=== PATIENT | female | born 1975 | race African-American/Black ===

== ENCOUNTER → 2020-04-25 16:15 | Outpatient (BNVA) | payer MEDICAID, SELFPAY | PROVIDERS: PCP Internal Medicine; Referring Provider Internal Medicine; Visit Provider Anesthesiology | DX: Z76.89 Persons encountering health services in other specified circumstances (principal) ==

== ENCOUNTER → 2020-04-26 13:52 | Outpatient (BNVA) | payer MEDICAID, SELFPAY | PROVIDERS: PCP Internal Medicine; Visit Provider Family Medicine Adult Medicine | DX: M47.812 Spondylosis without myelopathy or radiculopathy, cervical region (principal); M47.814 Spondylosis without myelopathy or radiculopathy, thoracic region; M54.16 Radiculopathy, lumbar region | CPT/HCPCS: 99204 ==

== ENCOUNTER → 2020-05-29 14:38 | Outpatient (BNVA) | payer MEDICAID, SELFPAY | PROVIDERS: PCP Internal Medicine; Referring Provider Internal Medicine; Visit Provider Family Medicine Adult Medicine | DX: M47.814 Spondylosis without myelopathy or radiculopathy, thoracic region (principal); M47.812 Spondylosis without myelopathy or radiculopathy, cervical region; Z79.891 Long term (current) use of opiate analgesic | CPT/HCPCS: 99212 ==

== ENCOUNTER → 2020-07-16 09:26 | Outpatient (BNVA) | payer MEDICAID, SELFPAY | PROVIDERS: PCP Internal Medicine; Visit Provider Nurse Practitioner | DX: Z76.89 Persons encountering health services in other specified circumstances (principal) ==

== ENCOUNTER → 2020-07-24 14:24 | Outpatient (BNVA) | payer MEDICAID, SELFPAY | PROVIDERS: PCP Internal Medicine; Visit Provider Family Medicine Adult Medicine | DX: M47.816 Spondylosis without myelopathy or radiculopathy, lumbar region (principal); M47.814 Spondylosis without myelopathy or radiculopathy, thoracic region | CPT/HCPCS: 99212 ==

== ENCOUNTER 2020-07-25 10:08 | Outpatient (REF) | payer MEDICAID, SELFPAY ==
--- NOTE | 2020-07-25 10:15 | EMG_ITS ---
HISTORY OF PRESENT ILLNESS: This is a 44-year-old woman with bilateral hand pain and numbness, left worse than right. She has no medical problems and takes no medications. PHYSICAL EXAMINATION: On examination, she has mild flattening of the thenar eminence on the right. No Tinel or Phalen sign. IMPRESSION: Rule out carpal tunnel syndrome. Nerve conduction EMG study: Moderate carpal tunnel syndrome on the right, mild to moderate carpal tunnel syndrome on the left. Normal EMG of the left C5-T1 innervated muscles. MD MINESH Bright/CRISTINA / [id number]
== END 2020-07-25 10:09 | disposition home or self-care (01) ==
LOC: HO.NEURO 10:08
PROVIDERS: Visit Provider Internal Medicine
DX: R20.2 Paresthesia of skin (principal)
CPT/HCPCS: 95886; 95913

== ENCOUNTER → 2020-09-18 14:12 | Outpatient (BNVA) | payer MEDICAID, SELFPAY | PROVIDERS: PCP Internal Medicine; Visit Provider Family Medicine Adult Medicine | DX: M47.814 Spondylosis without myelopathy or radiculopathy, thoracic region (principal); M47.816 Spondylosis without myelopathy or radiculopathy, lumbar region; Z79.899 Other long term (current) drug therapy | CPT/HCPCS: 99212 ==

== ENCOUNTER → 2020-10-09 13:22 | Outpatient (BNVA) | payer MEDICAID, SELFPAY | PROVIDERS: PCP Internal Medicine; Visit Provider Nurse Practitioner ==

== ENCOUNTER 2020-11-11 18:22 | Emergency (ER) | payer MEDICAID, SELFPAY ==
--- NOTE | ~2020-11-11 | XR_ITS ---
EXAMINATION: XR CHEST CLINICAL INFORMATION: Chest pain COMPARISON: 04/16/2016 TECHNIQUE: 2 views of the chest were obtained. FINDINGS: Lungs are clear. No focal consolidation or mass. Normal pulmonary vascularity. No pleural effusion or pneumothorax. Normal heart size. No acute osseous abnormality. XR/XR chest 2V IMPRESSION: No acute pulmonary disease.
[2020-11-11 18:32] VITALS: BP 159/89; PULSE 74; RESP 16; TEMP 37.7; O2SAT 95; BMI 38.4
[2020-11-11 19:53] LABS: MANUAL DIFF FLAG NO
[2020-11-11 19:58] LABS: Basophils Percent Auto 0.1 % (0-2); Eosinophils Percent Auto 0.1 % (0-4); Hematocrit 44.9 % (37-47); Hemoglobin 15.3 g/dl (12.0-16.0); Imm Gran Abs Auto 0.25 X10*3/uL (0.00-0.03); Imm Gran Pct Auto 1.4 % (0.0-0.4); Lymphocytes Percent Auto 11.3 % (20-40); Mean Corpuscular HGB Conc 34.1 g/dl (31.0-35.0); Mean Corpuscular Hemoglobin 30.6 pg (27.0-33.0); Mean Corpuscular Volume 89.8 fL (80-98); Mean Platelet Volume 9.5 fL (9.4-12.3); Monocytes Absolute Auto 0.6 X10*3/uL (0.1-1.2); Monocytes Percent Auto 3.7 % (2-11); Neutrophils Absolute Auto 14.5 X10*3/uL (2.0-8.3); Neutrophils Percent Auto 83.4 % (45-73); Platelet Count 213 X10*3/uL (160-400); Red Cell Distribution Width 15.3 % (11.0-16.0); White Blood Count 17.4 X10*3/uL (4.8-10.8)
[2020-11-11 20:06] LABS: Glucose Urine UA NEG (NEG); Leukocyte Esterase Urine NEG (NEG); Nitrite Urine NEG (NEG); PH 7.5 (5.0-8.0); Specific Gravity - Urine 1.015 (1.005-1.025); Urine Blood NEG (NEG); Urine Ketones NEG (NEG); Urine Protein NEG (NEG-TRACE)
[2020-11-11 20:09] LABS: Appearance Urine CLEAR; Color Urine YELLOW; UPreg QC Valid YES; Urine Pregnancy NEGATIVE (NEGATIVE)
[2020-11-11 20:27] LABS: Alanine Aminotransferase 56 U/L (0-31); Albumin Level 3.9 g/dL (3.5-5.0); Alkaline Phosphatase 73 U/L (39-117); Anion Gap 15 (12-20); Aspartate Amino Transferase 16 U/L (5-31); Bilirubin Total 0.7 mg/dL (0.0-1.0); Blood Urea Nitrogen 21 mg/dL (9-16); Calcium 9.6 mg/dL (8.4-10.2); Carbon Dioxide 31 mmol/L (22-29); Chloride 98 mmol/L (96-108); Creatinine Clr Calc Pharmacy 96.9; Estimated Glomerular Filt Rate > 60; Glucose Random 185 mg/dL (60-115); Potassium 3.7 mmol/L (3.3-5.1); Sodium 140 mmol/L (135-145); Total Protein 6.5 g/dL (6.5-8.0)
[2020-11-11 20:28] LABS: Troponin-I High Sensitivity 5.6 ng/L (<3.5-17.0)
--- NOTE | 2020-11-11 21:34 | ECG_ITS ---
Test Reason : CHEST PAIN Blood Pressure : / mmHG Vent. Rate : 068 BPM Atrial Rate : 068 BPM P-R Int : 130 ms QRS Dur : 082 ms QT Int : 382 ms P-R-T Axes : 018 -06 008 degrees QTc Int : 406 ms Normal sinus rhythm Normal ECG When compared with ECG of 25-FEB-2018 10:15, Inverted T waves have replaced nonspecific T wave abnormality in Inferior leads Referred By: Katt Barriga Electronically Signed By:LYN FELTON MD
--- NOTE | 2020-11-11 21:52 | ED.CHESTPAIN ---
HPI - Chest Pain General Chief Complaint: Chest Pain Stated Complaint: Chest pain Time Seen by Provider: 11/11/20 21:33 Source: patient Mode of arrival: ambulatory History of Present Illness HPI narrative: 44-year-old female who presents with onset of chest tightness, nonradiating, but associated with dizziness and change in vision that occurred at approximately 6:00 p.m. this evening while doing housework and lasted 15-20 minutes and was not associated with shortness of breath, diaphoresis, or nausea. Patient denies any recent fevers, chills, new cough, or sore throat. In addition, patient denies any recent travel, calf swelling/pain. Related Data Home Medications Medication Instructions Recorded Confirmed atenolol 25 mg tablet 25 mg PO DAILY 04/21/20 05/29/20 lamotrigine 200 mg tablet 200 mg PO DAILY 04/21/20 04/21/20 venlafaxine 150 mg 150 mg PO DAILY 04/21/20 05/29/20 capsule,extended release 24 hr verapamil 120 mg tablet 120 mg PO DAILY 04/21/20 05/29/20 zolpidem 10 mg tablet 10 mg PO BEDTIME PRN 04/21/20 04/21/20 Previous Rx's Medication Instructions Recorded docusate sodium 100 mg capsule 100 mg PO BID #60 cap 07/16/20 hydrocortisone 2.5 % topical cream 1 appl SD BID PRN 30 Days #30 g 10/09/20 with perineal applicator linaclotide 145 mcg capsule 145 mcg PO QAM 30 Days #30 cap 10/09/20 dexamethasone 4 mg tablet 4 mg PO BID 30 Days #60 tab 10/16/20 buprenorphine HCl 600 mcg buccal 600 mcg BUCCAL Q12H 30 Days #60 ea 11/01/20 film pantoprazole 20 mg tablet,delayed 20 mg PO DAILY #30 tab 11/02/20 release ibuprofen 800 mg tablet 800 mg PO Q12H 30 Days #60 tab 11/07/20 Allergies Allergy/AdvReac Type Severity Reaction Status Date / Time ENVIRONMENTAL Allergy Intermediate HAYFEVER Uncoded 09/18/20 14:46 SYMPTOMS Review of Systems Review of Systems: Pertinent positives and negatives as stated in HPI 10 point review systems is otherwise negative. [facility] Past Medical History Source: nursing notes reviewed Medical History Cervical spondylosis Cervicalgia Degenerative arthritis of thoracic spine Left elbow pain Left elbow pain Low back pain Lumbar spondylosis Thoracic spondylosis Surgical History History of esophagogastroduodenoscopy (EGD) Family History Family History Brother Leukemia Mother HTN (hypertension) Father Myocardial infarct Social History Social History Alcohol intake: never Smoking Status: Never smoker Advance Directives: No Advance Directives Information Provided: No Physical Exam Vital Signs: Vital Signs: Last Vital Signs Temp 99.1 F 11/11/20 23:45 Pulse 58 11/11/20 23:45 Resp 24 H 11/11/20 23:45 BP 118/72 11/11/20 23:45 Pulse Ox 96 11/11/20 23:45 Body Mass Index 38.4 VITAL SIGNS: Reviewed. GENERAL: Well developed, well nourished, in no acute distress. HEAD: Normocephalic/atraumatic, EYES: PERRLA, EOMI EARS: Ext canals without abnormality, TMs non-bulging and non-erythematous NOSE: Nares patent bilateral OROPHARYNX: no oral lesions noted, posterior pharynx clear and non-erythematous without noted tonsillar enlargement/erythema/exudates NECK: Supple, no adenopathy LUNGS: Normal breath sounds, no tachypnea, no wheeze. SpO2<95> CARDIOVASCULAR: Regular rate and rhythm without noted murmurs, no JVD or lower extremity edema. ABDOMEN: Soft, non-tender, non-distended with bowel sounds. NEUROLOGIC: Alert and oriented x 4. Strength and sensation to light touch were grossly intact x 4, no facial asymmetry, no pronator drift, cranial nerves 2-12 grossly intact Course Course Course Narrative: 44-year-old female with history and clinical presentation suggestive of asthma symptoms, pneumonia, less likely cardiac ischemia, and low clinical suspicion for PE. Review of all investigations that acute findings as the leukocytosis is noted is felt to be secondary to patient's prescription for Decadron as chest x-ray/UA/benign abdominal exam are inconsistent with infectious etiology. In addition, the low-level D-dimer value noted is consistent with prior value obtained in 2019 and further supports low likelihood of PE. Serial troponins flat and EKG without acute changes on comparison with prior from 2018. Patient informed of all results and discharged in stable condition. MDM - Chest Pain Lab Data Result diagrams: 11/11/20 19:46 11/11/20 19:46 Labs: Lab Results 11/11/20 11/11/20 11/11/20 Range/Units 19:46 19:46 19:46 WBC 17.4 H (4.8-10.8) X10*3/uL RBC 5.00 (4.20-5.50) X10*6/uL Hgb 15.3 (12.0-16.0) g/dl Hct 44.9 (37-47) % MCV 89.8 (80-98) fL MCH 30.6 (27.0-33.0) pg MCHC 34.1 (31.0-35.0) g/dl RDW 15.3 (11.0-16.0) % Plt Count 213 (160-400) X10*3/uL MPV 9.5 (9.4-12.3) fL Immature Gran % (Auto) 1.4 H (0.0-0.4) % Neut % (Auto) 83.4 H (45-73) % Lymph % (Auto) 11.3 L (20-40) % [place] % (Auto) 3.7 (2-11) % Eos % (Auto) 0.1 (0-4) % Baso % (Auto) 0.1 (0-2) % Lymph # (Auto) 2.0 (1.2-4.9) X10*3/uL [place] # (Auto) 0.6 (0.1-1.2) X10*3/uL Eos # (Auto) 0.0 (0.0-0.4) X10*3/uL Baso # (Auto) 0.0 (0.0-0.2) X10*3/uL Abs Immat Gran (auto) 0.25 H (0.00-0.03) X10*3/uL Absolute Neuts (auto) 14.5 H (2.0-8.3) X10*3/uL Absolute Nucleated RBC 0.000 (0.0-0.012) X10*3/uL Nucleated RBC % (auto) 0.0 (0.0-0.2) /100WBC D-Dimer 233 NG/ML Hold Blue Top SEE NOTE Sodium 140 (135-145) mmol/L Potassium 3.7 (3.3-5.1) mmol/L Chloride 98 (96-108) mmol/L Carbon Dioxide 31 H (22-29) mmol/L Anion Gap 15 (12-20) BUN 21 H (9-16) mg/dL Creatinine 0.78 (0.5-1.4) mg/dL Estim Creat Clear Calc 96.9 Estimated GFR > 60 Random Glucose 185 H (60-115) mg/dL Calcium 9.6 (8.4-10.2) mg/dL Total Bilirubin 0.7 (0.0-1.0) mg/dL AST 16 (5-31) U/L ALT 56 H (0-31) U/L Alkaline Phosphatase 73 (39-117) U/L Troponin I High Sens (<3.5-17.0) ng/L Total Protein 6.5 (6.5-8.0) g/dL Albumin 3.9 (3.5-5.0) g/dL Lipase 61 (8-78) U/L Urine Color Urine Appearance Urine pH (5.0-8.0) Ur Specific [place] (1.005-1.025) Urine Protein (NEG-TRACE) MG/DL Urine Glucose (UA) (NEG) MG/DL Urine Ketones (NEG) MG/DL Urine Blood (NEG) Urine Nitrite (NEG) Ur Leukocyte Esterase (NEG) Urine Test (NEGATIVE) 11/11/20 11/11/20 11/11/20 Range/Units 19:46 19:54 19:54 WBC (4.8-10.8) X10*3/uL RBC (4.20-5.50) X10*6/uL Hgb (12.0-16.0) g/dl Hct (37-47) % MCV (80-98) fL MCH (27.0-33.0) pg MCHC (31.0-35.0) g/dl RDW (11.0-16.0) % Plt Count (160-400) X10*3/uL MPV (9.4-12.3) fL Immature Gran % (Auto) (0.0-0.4) % Neut % (Auto) (45-73) % Lymph % (Auto) (20-40) % [place] % (Auto) (2-11) % Eos % (Auto) (0-4) % Baso % (Auto) (0-2) % Lymph # (Auto) (1.2-4.9) X10*3/uL [place] # (Auto) (0.1-1.2) X10*3/uL Eos # (Auto) (0.0-0.4) X10*3/uL Baso # (Auto) (0.0-0.2) X10*3/uL Abs Immat Gran (auto) (0.00-0.03) X10*3/uL Absolute Neuts (auto) (2.0-8.3) X10*3/uL Absolute Nucleated RBC (0.0-0.012) X10*3/uL Nucleated RBC % (auto) (0.0-0.2) /100WBC D-Dimer NG/ML Hold Blue Top Sodium (135-145) mmol/L Potassium (3.3-5.1) mmol/L Chloride (96-108) mmol/L Carbon Dioxide (22-29) mmol/L Anion Gap (12-20) BUN (9-16) mg/dL Creatinine (0.5-1.4) mg/dL Estim Creat Clear Calc Estimated GFR Random Glucose (60-115) mg/dL Calcium (8.4-10.2) mg/dL Total Bilirubin (0.0-1.0) mg/dL AST (5-31) U/L ALT (0-31) U/L Alkaline Phosphatase (39-117) U/L Troponin I High Sens 5.6 (<3.5-17.0) ng/L Total Protein (6.5-8.0) g/dL Albumin (3.5-5.0) g/dL Lipase (8-78) U/L Urine Color YELLOW Urine Appearance CLEAR Urine pH 7.5 (5.0-8.0) Ur Specific [place] 1.015 (1.005-1.025) Urine Protein NEG (NEG-TRACE) MG/DL Urine Glucose (UA) NEG (NEG) MG/DL Urine Ketones NEG (NEG) MG/DL Urine Blood NEG (NEG) Urine Nitrite NEG (NEG) Ur Leukocyte Esterase NEG (NEG) Urine Test NEGATIVE (NEGATIVE) 11/11/20 Range/Units 23:15 WBC (4.8-10.8) X10*3/uL RBC (4.20-5.50) X10*6/uL Hgb (12.0-16.0) g/dl Hct (37-47) % MCV (80-98) fL MCH (27.0-33.0) pg MCHC (31.0-35.0) g/dl RDW (11.0-16.0) % Plt Count (160-400) X10*3/uL MPV (9.4-12.3) fL Immature Gran % (Auto) (0.0-0.4) % Neut % (Auto) (45-73) % Lymph % (Auto) (20-40) % [place] % (Auto) (2-11) % Eos % (Auto) (0-4) % Baso % (Auto) (0-2) % Lymph # (Auto) (1.2-4.9) X10*3/uL [place] # (Auto) (0.1-1.2) X10*3/uL Eos # (Auto) (0.0-0.4) X10*3/uL Baso # (Auto) (0.0-0.2) X10*3/uL Abs Immat Gran (auto) (0.00-0.03) X10*3/uL Absolute Neuts (auto) (2.0-8.3) X10*3/uL Absolute Nucleated RBC (0.0-0.012) X10*3/uL Nucleated RBC % (auto) (0.0-0.2) /100WBC D-Dimer NG/ML Hold Blue Top Sodium (135-145) mmol/L Potassium (3.3-5.1) mmol/L Chloride (96-108) mmol/L Carbon Dioxide (22-29) mmol/L Anion Gap (12-20) BUN (9-16) mg/dL Creatinine (0.5-1.4) mg/dL Estim Creat Clear Calc Estimated GFR Random Glucose (60-115) mg/dL Calcium (8.4-10.2) mg/dL Total Bilirubin (0.0-1.0) mg/dL AST (5-31) U/L ALT (0-31) U/L Alkaline Phosphatase (39-117) U/L Troponin I High Sens 3.9 (<3.5-17.0) ng/L Total Protein (6.5-8.0) g/dL Albumin (3.5-5.0) g/dL Lipase (8-78) U/L Urine Color Urine Appearance Urine pH (5.0-8.0) Ur Specific [place] (1.005-1.025) Urine Protein (NEG-TRACE) MG/DL Urine Glucose (UA) (NEG) MG/DL Urine Ketones (NEG) MG/DL Urine Blood (NEG) Urine Nitrite (NEG) Ur Leukocyte Esterase (NEG) Urine Test (NEGATIVE) ECG Data ECG #1: Attestation: I personally reviewed and interpreted this ECG as follows: Prior ECG tracings: available for review (02/25/2018 no acute changes on comparison) Interpretation: Normal sinus rhythm, HR-68, no evidence of acute ischemia, SD/QRS/QTC within normal limits. Discharge Plan Discharge Clinical Impression: Atypical chest pain, GERD (gastroesophageal reflux disease) Patient Disposition: Home, Self-Care Instructions: Diet for Stomach Ulcers and Gastritis (ED), Gastroesophageal Reflux Disease (ED) Additional Instructions: Follow-up with your primary care provider in the next 2-3 days for re-evaluation. Do not hesitate to return to the emergency department should you develop any acute worsening of symptoms. Prescriptions: No Action dexamethasone 4 mg tablet 4 mg PO BID 30 Days Qty: 60 RF: 0 Belbuca 600 mcg film 600 mcg buccal Q12H 30 Days Qty: 60 RF: 0 pantoprazole 20 mg tablet,delayed release (DR/EC) 20 mg PO DAILY Qty: 30 RF: 0 ibuprofen 800 mg tablet 800 mg PO Q12H 30 Days Qty: 60 RF: 1 atenolol 25 mg tablet 25 mg PO DAILY RF: 0 lamotrigine 200 mg tablet 200 mg PO DAILY RF: 0 verapamil 120 mg tablet 120 mg PO DAILY RF: 0 venlafaxine 150 mg capsule,extended release 24hr 150 mg PO DAILY RF: 0 zolpidem 10 mg tablet 10 mg PO BEDTIME PRNRF: 0 Linzess 145 mcg capsule 145 mcg PO QAM 30 Days Qty: 30 RF: 4 hydrocortisone [Proctosol HC] 2.5 % cream with perineal applicator 1 appl SD BID PRN (Reason: hemorrhoids) 30 Days Qty: 30 RF: 6 docusate sodium [Colace] 100 mg capsule 100 mg PO BID Qty: 60 RF: 3 Referrals: Woodrow Montalvo MD [Primary Care Provider] - 2 days (Re-evaluation after seen in the ER for atypical chest pain. Possible GERD exacerbation secondary to being placed on Decadron 4 mg daily.)
[2020-11-11 22:19] LABS: Lipase 61 U/L (8-78)
[2020-11-11 22:43] LABS: D Dimer 233 NG/ML
[2020-11-11 23:45] VITALS: BP 118/72; PULSE 58; RESP 24; TEMP 37.3; O2SAT 96
[2020-11-11 23:55] LABS: Troponin-I High Sensitivity 3.9 ng/L (<3.5-17.0)
[2020-11-12 00:06] VITALS: BP 114/71; PULSE 58; RESP 22; O2SAT 97
== END 2020-11-12 00:16 | disposition home or self-care (01) ==
PROVIDERS: Emergency Provider Student in an Organized Health Care Education/Training Program; PCP Internal Medicine
DX: R07.89 Other chest pain (principal); K21.9 Gastro-esophageal reflux disease without esophagitis
CPT/HCPCS: 36415; 71046; 80053; 81003; 81025; 83690; 84484; 85025; 85379; 93005; 99283; 99284

== ENCOUNTER → 2020-11-13 14:07 | Outpatient (REF) | payer MEDICAID, SELFPAY | LOC: HO.SL 14:07 | PROVIDERS: PCP Internal Medicine; Visit Provider Internal Medicine | DX: G47.30 Sleep apnea, unspecified (principal); K64.9 Unspecified hemorrhoids; K21.9 Gastro-esophageal reflux disease without esophagitis; K59.00 Constipation, unspecified; R14.0 Abdominal distension (gaseous); Z79.899 Other long term (current) drug therapy | CPT/HCPCS: 95806 ==

== ENCOUNTER 2020-11-23 15:46 | Emergency (ER) | payer MEDICAID, SELFPAY ==
--- NOTE | ~2020-11-23 | CT_ITS ---
EXAMINATION: CT SOFT TISSUE NECK WITH CONTRAST CLINICAL INFORMATION: Painful swallowing and swelling. COMPARISON: None TECHNIQUE: Following the intravenous administration of 60 mL of Omnipaque 350 intravenous contrast, helical imaging was performed in the axial plane with generation of coronal and sagittal reformatted images. This CT examination was performed using dose optimization techniques as appropriate, variously including the following: *Automated exposure control *Adjustment of mA and/or kV according to patient size (this includes techniques or standardized protocols for targeted exams where dose is matched to indication/reason for exam; i.e. extremities or head) *Use of iterative reconstruction technique DLP: 813 mGy-cm FINDINGS: There are numerous shotty lymph nodes seen throughout bilateral neck likely reactive. The parotid glands are homogeneous in attenuation. The submandibular glands are normal. No contour abnormality or pathologic enhancement is seen within the oral cavity or pharyngeal mucosal space. There is mild thickening of the adenoids and the soft palate resulting in narrowing of the nasopharyngeal airway likely secondary inflammatory process. There is no abscess seen. The patellar pharyngeal soft tissues are normal. The laryngeal structures are normal. The parapharyngeal fat is preserved. The carotid sheath vasculature opacify normally. No extra mucosal soft tissue mass or fluid collection is seen. No retropharyngeal fluid collection is seen. The thyroid gland is normal. The superior mediastinum is unremarkable. There is a small 2 mm nodule right upper lobe., Barely visible. Otherwise lung apices are clear.. Mild mucoperiosteal thickening bilateral maxillary sinuses. Rest of the paranasal sinuses are clear and well aerated. The mastoid air cells are well-aerated. The temporomandibular joints are normal. No periapical disease is identified. No osseous abnormalities are seen. The imaged portions of the brain parenchyma are unremarkable. CT/CT soft tissue neck w con IMPRESSION: No acute process seen. Nonspecific mild narrowing of nasopharyngeal airway secondary mild thickening of the adenoids and soft palate. No abscess seen. Small nonspecific 2 mm nodule right upper lobe. Benign reactive bilateral neck lymph nodes.
[2020-11-23 15:50] VITALS: BP 117/79; PULSE 100; RESP 12; TEMP 36.2; O2SAT 96; BMI 38.4
[2020-11-23 16:31] LABS: MANUAL DIFF FLAG NO
[2020-11-23 16:33] LABS: Basophils Percent Auto 0.2 % (0-2); Eosinophils Absolute Auto 0.1 X10*3/uL (0.0-0.4); Eosinophils Percent Auto 0.6 % (0-4); Hematocrit 40.7 % (37-47); Hemoglobin 13.9 g/dl (12.0-16.0); Lymphocytes Absolute Auto 2.3 X10*3/uL (1.2-4.9); Mean Corpuscular HGB Conc 34.2 g/dl (31.0-35.0); Mean Corpuscular Hemoglobin 30.6 pg (27.0-33.0); Mean Corpuscular Volume 89.6 fL (80-98); Mean Platelet Volume 9.2 fL (9.4-12.3); Monocytes Absolute Auto 0.7 X10*3/uL (0.1-1.2); Monocytes Percent Auto 6.8 % (2-11); Neutrophils Absolute Auto 6.9 X10*3/uL (2.0-8.3); Neutrophils Percent Auto 68.4 % (45-73); Platelet Count 196 X10*3/uL (160-400); Red Blood Count 4.54 X10*6/uL (4.20-5.50); Red Cell Distribution Width 14.6 % (11.0-16.0); White Blood Count 10.1 X10*3/uL (4.8-10.8)
[2020-11-23] MEDS: diphenhydrAMINE HCL 50 MG/ML VIAL 25 MG IVPUSH (16:34)
[2020-11-23] MEDS: Famotidine/PF 20 MG/2 ML VIAL IVPUSH (16:34)
[2020-11-23] MEDS: methylPREDNISolone Sod Succ 125 MG/2 ML VIAL IVPUSH (16:34)
--- NOTE | 2020-11-23 16:35 | ED.GENADULT ---
HPI - General Adult General Chief complaint: Allergic Reaction Stated complaint: facial swelling Time Seen by Provider: 11/23/20 16:12 Source: patient Mode of arrival: ambulatory Limitations: no limitations History of Present Illness HPI narrative: 44 y/o female with history of chronic low back pain with radiculopathy, GERD, constipation who presents to the ED with 1 week of face, neck, and throat swelling for the past 1 week. She states the swelling feels worse on the right side of her face and throat. She is having pain with eating but able to eat and drink all consistencies. Her voice is normal and she is handling secretions normally. About 6 weeks ago she was started on Decadron 4 mg daily by her Pain Specialist for chronic pain. She is also on buprenorphine (Belbuca) 600 mg Q12 and Motrin 800 mg TID. She is not on an SHERWIN inhibitor or aspirin. She denies lip swelling, rash, fever, chills, N/V. MD complaint: facial and neck swelling Onset (ago): day(s) (7) Location: face, mouth and neck Radiation: distal Severity: moderate Quality: aching Pain Consistency: intermittent Relieving factors: none Exacerbating factors: eating Associated symptoms: denies other symptoms Treatments prior to arrival: none Related Data Home Medications Medication Instructions Recorded Confirmed atenolol 25 mg tablet 25 mg PO DAILY 04/21/20 11/13/20 lamotrigine 200 mg tablet 200 mg PO DAILY 04/21/20 11/13/20 venlafaxine 150 mg 150 mg PO DAILY 04/21/20 05/29/20 capsule,extended release 24 hr verapamil 120 mg tablet 120 mg PO DAILY 04/21/20 11/13/20 zolpidem 10 mg tablet 10 mg PO BEDTIME PRN 04/21/20 11/13/20 bisacodyl 5 mg tablet,delayed 10 mg PO BEDTIME 11/13/20 11/13/20 release paroxetine HCl 30 mg tablet 30 mg PO DAILY 11/13/20 11/13/20 quetiapine 50 mg tablet 50 mg PO DAILY 11/13/20 11/13/20 Previous Rx's Medication Instructions Recorded hydrocortisone 2.5 % topical cream 1 appl MS BID PRN 30 Days #30 g 10/09/20 with perineal applicator linaclotide 145 mcg capsule 145 mcg PO QAM 30 Days #30 cap 10/09/20 dexamethasone 4 mg tablet 4 mg PO BID 30 Days #60 tab 10/16/20 pantoprazole 20 mg tablet,delayed 20 mg PO DAILY #30 tab 11/02/20 release ibuprofen 800 mg tablet 800 mg PO Q12H 30 Days #60 tab 11/07/20 docusate sodium 100 mg capsule 100 mg PO BID #60 cap 11/13/20 simethicone 180 mg capsule 180 mg PO TIDWMEAL 30 Days #90 cap 11/13/20 buprenorphine HCl 600 mcg buccal 600 mcg BUCCAL Q12H 30 Days #60 ea 11/15/20 film amoxicillin-pot clavulanate 1 tab PO BID #14 tab 11/23/20 [Augmentin] Allergies Allergy/AdvReac Type Severity Reaction Status Date / Time ENVIRONMENTAL Allergy Intermediate HAYFEVER Uncoded 09/18/20 14:46 SYMPTOMS Review of Systems Review of Systems: Constitutional: No Fever, No Chills ENT/Mouth: + sore throat, No Rhinorrhea, + Swallowing Difficulty Eyes: No Eye Pain, No Swelling, No Redness Cardiovascular: No Chest Pain, No SOB, No Orthopnea, No Edema Respiratory: No Cough, No Sputum, No Wheezing, No dyspnea Gastrointestinal: No Nausea, No Vomiting, No Diarrhea, No abdominal Pain Genitourinary: No Dysuria, No Urinary Frequency, No Hematuria Musculoskeletal: No joint pain, No Myalgias Skin: No Skin Lesions, No rash Neuro: No Weakness, No Numbness, No Dizziness, No Headache Psych: No Anxiety/Panic, No Depression Heme/Lymph: No Bruising, No Lymphadenopathy PMFSH Past Medical History Attestation statement: The following information was validated with the patient. Medical History Cervical spondylosis Cervicalgia Degenerative arthritis of thoracic spine Left elbow pain Left elbow pain Low back pain Lumbar spondylosis Thoracic spondylosis Surgical History History of esophagogastroduodenoscopy (EGD) Family History Family History Brother Leukemia Mother HTN (hypertension) Father Myocardial infarct Social History Social History (Updated 11/13/20 @ 14:37 by MORENA Zimmerman) Household Members Other:: FOUR GROWN SONS LIVES ALONE Alcohol intake: never Smoking Status: Never smoker Advance Directives: No Advance Directives Information Provided: No Patient : No Physical Exam Vital Signs: Vital Signs: Last Vital Signs Temp 98.8 F 11/23/20 18:15 Pulse 86 11/23/20 18:15 Resp 18 11/23/20 18:15 BP 108/61 11/23/20 18:15 Pulse Ox 92 11/23/20 18:15 Body Mass Index 38.4 Appearance: Alert. Oriented X3. No acute distress. Eyes: Pupils equal, round and reactive to light. ENT: Pharynx normal. No appreciated tongue swelling. lips are normal. uvula midline. normal voice. Neck: Bilateral submandibular swelling with lateral swelling, trachea midline, tiny shotty LAD in the neck. Swelling is soft, extends to supraclavicular area CVS: Normal heart rate and rhythm. Pulses normal. Respiratory: No respiratory distress. Breath sounds normal. Abdomen: Soft and nontender. +BS x4 Skin: Skin warm and dry. Normal skin color. Normal skin turgor. No rashes. Extremities: No lower extremity edema. Neuro: Oriented X 3. No motor deficit. No sensory deficit. Course Course Course Narrative: 44 y/o female presenting with facial, neck and mouth swelling x1 week. Does not appear to be angioedema. She reports painful swallowing. She appearing Cushingoid however she has only been on steroids for 6 weeks. Will get labs and CT scan of her neck to assess the anatomy. Reevaluation(s) Reevaluation #1: No leukocytosis. CT scan showing No acute process seen. Nonspecific mild narrowing of nasopharyngeal airway secondary mild thickening of the adenoids and soft palate. No abscess seen. Small nonspecific 2 mm nodule right upper lobe. Benign reactive bilateral neck lymph nodes. Etiology of her swelling is unclear but it does not involve her airway. She is in no respiratory distress and breathing comfortably. Tolerating PO. Will start PO Augmentin for possible adenitis. She is encouraged to f/u with her PCP next week or come back to the ER if symptoms worsen. She is stable for discharge. Patient agrees with plan. Medical Decision Making Lab Data Result diagrams: 11/23/20 16:27 11/23/20 16:27 Labs: Lab Results 05/07/21 05/07/21 Range/Units 16:27 16:27 WBC 10.1 (4.8-10.8) X10*3/uL RBC 4.54 (4.20-5.50) X10*6/uL Hgb 13.9 (12.0-16.0) g/dl Hct 40.7 (37-47) % MCV 89.6 (80-98) fL MCH 30.6 (27.0-33.0) pg MCHC 34.2 (31.0-35.0) g/dl RDW 14.6 (11.0-16.0) % Plt Count 196 (160-400) X10*3/uL MPV 9.2 L (9.4-12.3) fL Immature Gran % (Auto) 1.0 H (0.0-0.4) % Neut % (Auto) 68.4 (45-73) % Lymph % (Auto) 23.0 (20-40) % [place] % (Auto) 6.8 (2-11) % Eos % (Auto) 0.6 (0-4) % Baso % (Auto) 0.2 (0-2) % Lymph # (Auto) 2.3 (1.2-4.9) X10*3/uL [place] # (Auto) 0.7 (0.1-1.2) X10*3/uL Eos # (Auto) 0.1 (0.0-0.4) X10*3/uL Baso # (Auto) 0.0 (0.0-0.2) X10*3/uL Abs Immat Gran (auto) 0.10 H (0.00-0.03) X10*3/uL Absolute Neuts (auto) 6.9 (2.0-8.3) X10*3/uL Absolute Nucleated RBC 0.000 (0.0-0.012) X10*3/uL Nucleated RBC % (auto) 0.0 (0.0-0.2) /100WBC Sodium 139 (135-145) mmol/L Potassium 2.9 L D (3.3-5.1) mmol/L Chloride 99 (96-108) mmol/L Carbon Dioxide 28 (22-29) mmol/L Anion Gap 15 (12-20) BUN 9 D (9-16) mg/dL Creatinine 0.71 (0.5-1.4) mg/dL Estim Creat Clear Calc 106.5 Estimated GFR > 60 Random Glucose 169 H (60-115) mg/dL Calcium 8.9 D (8.4-10.2) mg/dL Magnesium 1.9 (1.6-2.6) mg/dL Discharge Plan Discharge Clinical Impression: Lymphadenopathy of head and neck region Patient Disposition: Home, Self-Care Instructions: Lymphadenopathy (ED) Additional Instructions: Your blood workup today was unremarkable. Your CT scan showed small swollen lymph nodes in your neck. The cause could be viral, reactive or possibly a bacterial infection. Take the prescribed antibiotic as directed for 1 week. Follow up with your doctor next week. If you have any worsening symptoms come back to the ER for further evaluation. Prescriptions: New amoxicillin-pot clavulanate [Augmentin] 875-125 mg tablet 1 tab PO BID Qty: 14 RF: 0 No Action dexamethasone 4 mg tablet 4 mg PO BID 30 Days Qty: 60 RF: 0 pantoprazole 20 mg tablet,delayed release (DR/EC) 20 mg PO DAILY Qty: 30 RF: 0 ibuprofen 800 mg tablet 800 mg PO Q12H 30 Days Qty: 60 RF: 1 atenolol 25 mg tablet 25 mg PO DAILY RF: 0 lamotrigine 200 mg tablet 200 mg PO DAILY RF: 0 verapamil 120 mg tablet 120 mg PO DAILY RF: 0 venlafaxine 150 mg capsule,extended release 24hr 150 mg PO DAILY RF: 0 zolpidem 10 mg tablet 10 mg PO BEDTIME PRNRF: 0 Linzess 145 mcg capsule 145 mcg PO QAM 30 Days Qty: 30 RF: 4 hydrocortisone [Proctosol HC] 2.5 % cream with perineal applicator 1 appl MS BID PRN (Reason: hemorrhoids) 30 Days Qty: 30 RF: 6 quetiapine [Seroquel] 50 mg tablet 50 mg PO DAILY RF: 0 paroxetine HCl 30 mg tablet 30 mg PO DAILY RF: 0 simethicone 180 mg capsule 180 mg PO TIDWMEAL 30 Days Qty: 90 RF: 3 bisacodyl [Dulcolax (bisacodyl)] 5 mg tablet,delayed release (DR/EC) 10 mg PO BEDTIME RF: 0 docusate sodium [Colace] 100 mg capsule 100 mg PO BID Qty: 60 RF: 3 Belbuca 600 mcg film 600 mcg buccal Q12H 30 Days Qty: 60 RF: 0 Referrals: Woodrow Montalvo MD [Primary Care Provider] - 2 days
[2020-11-23 17:15] LABS: Anion Gap 15 (12-20); Blood Urea Nitrogen 9 mg/dL (9-16); Calcium 8.9 mg/dL (8.4-10.2); Carbon Dioxide 28 mmol/L (22-29); Chloride 99 mmol/L (96-108); Creatinine Clr Calc Pharmacy 106.5; Estimated Glomerular Filt Rate > 60; Glucose Random 169 mg/dL (60-115); Magnesium 1.9 mg/dL (1.6-2.6); Potassium 2.9 mmol/L (3.3-5.1); Sodium 139 mmol/L (135-145)
[2020-11-23] MEDS: Potassium Chloride ER 20 MEQ TAB.ER.PRT 40 MEQ PO (17:44)
[2020-11-23] MEDS: iohexoL 350 MG/ML 100 ML INFUS..BTL IV (18:02)
[2020-11-23 18:15] VITALS: BP 108/61; PULSE 86; RESP 18; TEMP 37.1; O2SAT 92
--- NOTE | 2020-11-23 18:44 | PC.NURSE ---
Report taken from preeti Roland RN resuming care. Provider at bedside explaining results and plan of care.
[2020-11-23 19:49] VITALS: BP 118/65; PULSE 88; RESP 16; O2SAT 93
== END 2020-11-23 20:00 | disposition home or self-care (01) ==
PROVIDERS: Physician Assistant; Emergency Provider Emergency Medicine; PCP Internal Medicine
DX: R59.1 Generalized enlarged lymph nodes (principal)
CPT/HCPCS: 36415; 70491; 80048; 83735; 85025; 96374; 96375; 99284; J1200; J2930; Q9967

== ENCOUNTER 2020-12-29 17:44 | Emergency (ER) | payer MEDICAID, SELFPAY ==
--- NOTE | ~2020-12-29 | US_ITS ---
EXAMINATION: US ABDOMEN LIMITED CLINICAL INFORMATION: Upper abdominal pain. COMPARISON: CT 09/15/2019 TECHNIQUE: Real-time imaging of the right upper quadrant abdominal viscera. FINDINGS: PANCREAS: The visualized proximal portion of the pancreas is unremarkable. The distal portion is obscured secondary to overlying bowel gas. LIVER: The liver is normal in size. The liver contour is normal. There is diffusely increased liver parenchymal echogenicity, consistent with hepatic steatosis. No focal hepatic lesion. There is no intrahepatic biliary duct dilatation seen. GALLBLADDER: The gallbladder is physiologically distended without evidence of stones, sludge, polyps, wall thickening or pericholecystic fluid. COMMON BILE DUCT: Normal in caliber measuring 0.4 cm in diameter. RIGHT KIDNEY: No hydronephrosis. No renal calculi identified. There is a 1.7 cm mid renal cyst. The kidney measures 12.9 cm in maximum dimension. FREE FLUID: None. US/US abdomen limited IMPRESSION: No acute findings identified. Hepatic steatosis.
[2020-12-29 19:09] VITALS: BP 118/86; PULSE 90; RESP 16; TEMP 36.8; O2SAT 100; BMI 36.3
--- NOTE | 2020-12-29 21:43 | ECG_ITS ---
Test Reason : ABDOMINAL PAIN Blood Pressure : / mmHG Vent. Rate : 083 BPM Atrial Rate : 083 BPM P-R Int : 146 ms QRS Dur : 086 ms QT Int : 370 ms P-R-T Axes : 018 -09 007 degrees QTc Int : 434 ms Normal sinus rhythm Normal ECG When compared with ECG of 11-NOV-2020 18:37, No significant change was found Referred By: Isabella Conklin Electronically Signed By:LYN FELTON MD
--- NOTE | 2020-12-29 21:46 | ED.ABDPAIN ---
HPI - Abdominal Pain General Chief Complaint: Abdominal Pain Stated Complaint: abdominal pain Time Seen by Provider: 12/29/20 21:38 History of Present Illness HPI narrative: Patient is a 45-year-old female presents today with having epigastric pain. The pain is dull in nature. It has been ongoing. Has a history of gastritis in the past. Patient denies any change with food. No coughing or congestion or upper respiratory symptoms. No chest pain. Positive mild shortness of breath. No diaphoresis. Patient from home. Positive diarrhea. Positive nausea. Status post hysterectomy. Patient currently not on any medication. History of GERD. Pain not change with position. Related Data Home Medications Medication Instructions Recorded Confirmed atenolol 25 mg tablet 25 mg PO DAILY 04/21/20 11/13/20 lamotrigine 200 mg tablet 200 mg PO DAILY 04/21/20 11/13/20 venlafaxine 150 mg 150 mg PO DAILY 04/21/20 05/29/20 capsule,extended release 24 hr verapamil 120 mg tablet 120 mg PO DAILY 04/21/20 11/13/20 zolpidem 10 mg tablet 10 mg PO BEDTIME PRN 04/21/20 11/13/20 bisacodyl 5 mg tablet,delayed 10 mg PO BEDTIME 11/13/20 11/13/20 release paroxetine HCl 30 mg tablet 30 mg PO DAILY 11/13/20 11/13/20 quetiapine 50 mg tablet 50 mg PO DAILY 11/13/20 11/13/20 Previous Rx's Medication Instructions Recorded hydrocortisone 2.5 % topical cream 1 appl [place] BID PRN 30 Days #30 g 10/09/20 with perineal applicator linaclotide 145 mcg capsule 145 mcg PO QAM 30 Days #30 cap 10/09/20 dexamethasone 4 mg tablet 4 mg PO BID 30 Days #60 tab 10/16/20 ibuprofen 800 mg tablet 800 mg PO Q12H 30 Days #60 tab 11/07/20 docusate sodium 100 mg capsule 100 mg PO BID #60 cap 11/13/20 simethicone 180 mg capsule 180 mg PO TIDWMEAL 30 Days #90 cap 11/13/20 buprenorphine HCl 600 mcg buccal 600 mcg BUCCAL Q12H 30 Days #60 ea 11/15/20 film amoxicillin-pot clavulanate 1 tab PO BID #14 tab 11/23/20 [Augmentin] pantoprazole 20 mg tablet,delayed 20 mg PO DAILY #30 tab 12/04/20 release pantoprazole [Protonix] 40 mg PO DAILY 14 Days #14 tab 12/30/20 Allergies Allergy/AdvReac Type Severity Reaction Status Date / Time ENVIRONMENTAL Allergy Intermediate HAYFEVER Uncoded 09/18/20 14:46 SYMPTOMS Review of Systems Review of Systems Constitutional: No Weight loss, No Fever, No Chills, No Night Sweats, No Fatigue, No Malaise ENT/Mouth: No Hearing loss, No Ear Pain, No Nasal Congestion, No Sinus Pain, No Hoarseness, No sore throat, No Rhinorrhea, No Swallowing Difficulty Eyes: No Eye Pain, No Swelling, No Redness, No Foreign Body, No Discharge, No Vision Changes Cardiovascular: No Chest Pain, No SOB, No Dyspnea on Exertion, No Orthopnea, No Edema, No Palpitations Respiratory: No Cough, No Sputum, No Wheezing, No Smoke Exposure, No Dyspnea Gastrointestinal: No Nausea, No Vomiting, No Diarrhea, No Constipation, positive abdominal Pain, No Hematochezia, No Melena Genitourinary: no irregular bleeding, No Dysuria, No Urinary Frequency, No Hematuria, No Urinary Incontinence, No Urgency, No Flank Pain, No Urinary Flow Changes, No Hesitancy Musculoskeletal: No joint pain, No Myalgias, No Joint Swelling Skin: No Skin Lesions, No rash Neuro: No Weakness, No Numbness, No Paresthesias, No Loss of Consciousness, No Dizziness, No Headache Psych: No Anxiety/Panic, No Depression, No SI/HI/AH/VH, No Social Issues, Heme/Lymph: No Bruising, No Bleeding,No Lymphadenopathy Endocrine: No Polyuria, No Polydipsia, No Temperature Intolerance Physical Exam Vital Signs: Vital Signs: Last Vital Signs Temp 98.3 F 12/29/20 19:09 Pulse 93 12/30/20 04:53 Resp 16 12/30/20 04:53 BP 119/88 12/30/20 04:53 Pulse Ox 98 12/30/20 04:53 Body Mass Index 36.3 Appearance: Alert. Oriented X3. No acute distress. Eyes: Pupils equal, round and reactive to light. ENT: Pharynx normal. Neck: Normal inspection. Neck supple. No lymph nodes noted. No crepitus CVS: Normal heart rate and rhythm. Pulses normal. Normal S1 and S2 Respiratory: No respiratory distress. Breath sounds normal. No Wheezing. No rales Abdomen: Soft and nontender. No rigidity. No distention. good BS x4 Skin: Skin warm and dry. Normal skin color. Normal skin turgor. Extremities: No lower extremity edema. Neurovascular intact to all extremities. No Lacerations. No Rash Neuro: Oriented X 3. No motor deficit. No sensory deficit. Moving all extermities. No slurred speech MDM - Abdominal Pain MDM Narrative Medical decision making narrative: Patient's complaining of epigastric pain. White count was 12. Liver enzymes were normal. Ultrasound of the abdomen did not show any evidence of cholecystitis. Patient's sugar came back at 400. Given a dose of insulin. Monitor in the emergency department. Sugar came down to 170s. Patient will be started on PPI. Incidentally patient ran out of her PPI. Close follow-up on an outpatient basis. In stable condition. Lab Data Result diagrams: 12/29/20 22:29 12/29/20 22:29 Labs: Lab Results 12/29/20 12/29/20 12/30/20 Range/Units 22:29 22:29 04:52 WBC 11.9 H (4.8-10.8) X10*3/uL RBC 5.22 (4.20-5.50) X10*6/uL Hgb 16.1 H (12.0-16.0) g/dl Hct 45.0 (37-47) % MCV 86.2 (80-98) fL MCH 30.8 (27.0-33.0) pg MCHC 35.8 H (31.0-35.0) g/dl RDW 12.7 (11.0-16.0) % Plt Count 341 D (160-400) X10*3/uL MPV 10.0 (9.4-12.3) fL Immature Gran % (Auto) 0.3 (0.0-0.4) % Neut % (Auto) 68.0 (45-73) % Lymph % (Auto) 25.3 (20-40) % [place] % (Auto) 5.4 (2-11) % Eos % (Auto) 0.6 (0-4) % Baso % (Auto) 0.4 (0-2) % Lymph # (Auto) 3.0 (1.2-4.9) X10*3/uL [place] # (Auto) 0.6 (0.1-1.2) X10*3/uL Eos # (Auto) 0.1 (0.0-0.4) X10*3/uL Baso # (Auto) 0.1 (0.0-0.2) X10*3/uL Abs Immat Gran (auto) 0.04 H (0.00-0.03) X10*3/uL Absolute Neuts (auto) 8.1 (2.0-8.3) X10*3/uL Absolute Nucleated RBC 0.000 (0.0-0.012) X10*3/uL Nucleated RBC % (auto) 0.0 (0.0-0.2) /100WBC Sodium 134 L (135-145) mmol/L Potassium 3.0 L (3.3-5.1) mmol/L Chloride 89 L (96-108) mmol/L Carbon Dioxide 31 H (22-29) mmol/L Anion Gap 17 (12-20) BUN 8 L (9-16) mg/dL Creatinine 0.95 (0.5-1.4) mg/dL Estim Creat Clear Calc 76.3 Estimated GFR > 60 POC Glucose 178 H (60-115) mg/dL Random Glucose 410 H* (60-115) mg/dL Calcium 10.2 D (8.4-10.2) mg/dL Total Bilirubin 1.1 H (0.0-1.0) mg/dL AST 21 (5-31) U/L ALT 32 H (0-31) U/L Alkaline Phosphatase 102 D (39-117) U/L Total Protein 7.7 (6.5-8.0) g/dL Albumin 4.2 (3.5-5.0) g/dL Lipase 24 (8-78) U/L Discharge Plan Discharge Clinical Impression: Gastritis Patient Disposition: Home, Self-Care Instructions: Gastritis (ED) Prescriptions: New pantoprazole [Protonix] 40 mg tablet,delayed release (DR/EC) 40 mg PO DAILY 14 Days Qty: 14 RF: 0 No Action dexamethasone 4 mg tablet 4 mg PO BID 30 Days Qty: 60 RF: 0 ibuprofen 800 mg tablet 800 mg PO Q12H 30 Days Qty: 60 RF: 1 pantoprazole 20 mg tablet,delayed release (DR/EC) 20 mg PO DAILY Qty: 30 RF: 6 amoxicillin-pot clavulanate [Augmentin] 875-125 mg tablet 1 tab PO BID Qty: 14 RF: 0 atenolol 25 mg tablet 25 mg PO DAILY RF: 0 lamotrigine 200 mg tablet 200 mg PO DAILY RF: 0 verapamil 120 mg tablet 120 mg PO DAILY RF: 0 venlafaxine 150 mg capsule,extended release 24hr 150 mg PO DAILY RF: 0 zolpidem 10 mg tablet 10 mg PO BEDTIME PRNRF: 0 Linzess 145 mcg capsule 145 mcg PO QAM 30 Days Qty: 30 RF: 4 hydrocortisone [Proctosol HC] 2.5 % cream with perineal applicator 1 appl [place] BID PRN (Reason: hemorrhoids) 30 Days Qty: 30 RF: 6 quetiapine [Seroquel] 50 mg tablet 50 mg PO DAILY RF: 0 paroxetine HCl 30 mg tablet 30 mg PO DAILY RF: 0 simethicone 180 mg capsule 180 mg PO TIDWMEAL 30 Days Qty: 90 RF: 3 bisacodyl [Dulcolax (bisacodyl)] 5 mg tablet,delayed release (DR/EC) 10 mg PO BEDTIME RF: 0 docusate sodium [Colace] 100 mg capsule 100 mg PO BID Qty: 60 RF: 3 [place] 600 mcg film 600 mcg buccal Q12H 30 Days Qty: 60 RF: 0 Referrals: Woodrow Montalvo MD [Primary Care Provider] - 2 days (Small meal, no spicy food. Closely follow up with her doctor on an outpatient basis.) [facility] Past Medical History Medical History Cervical spondylosis Cervicalgia Degenerative arthritis of thoracic spine Left elbow pain Left elbow pain Low back pain Lumbar spondylosis Thoracic spondylosis Surgical History History of esophagogastroduodenoscopy (EGD) Family History Family History Brother Leukemia Mother HTN (hypertension) Father Myocardial infarct Social History Social History Household Members Other:: FOUR GROWN SONS LIVES ALONE Alcohol intake: never Smoked in Last 30 Days: No Use of substances other than those prescribed or required for medical reasons: No Advance Directives: No Advance Directives Information Provided: No Patient : No
[2020-12-29] MEDS: Magnesium Hydrox/Alum Hydrox 30 ML ORAL.SUSP PO (22:18)
[2020-12-29] MEDS: Lidocaine HCl Viscous 2 % 15 ML SOLUTION MUCOUS MEM (22:18)
[2020-12-29] MEDS: PHENobarb/Hyoscy/Atropine/Scop 10 ML ELIXIR PO (22:18)
[2020-12-29 22:35] LABS: Basophils Absolute Auto 0.1 X10*3/uL (0.0-0.2); Basophils Percent Auto 0.4 % (0-2); Eosinophils Absolute Auto 0.1 X10*3/uL (0.0-0.4); Eosinophils Percent Auto 0.6 % (0-4); Hemoglobin 16.1 g/dl (12.0-16.0); Imm Gran Abs Auto 0.04 X10*3/uL (0.00-0.03); Imm Gran Pct Auto 0.3 % (0.0-0.4); Lymphocytes Percent Auto 25.3 % (20-40); MANUAL DIFF FLAG NO; Mean Corpuscular HGB Conc 35.8 g/dl (31.0-35.0); Mean Corpuscular Hemoglobin 30.8 pg (27.0-33.0); Mean Corpuscular Volume 86.2 fL (80-98); Monocytes Absolute Auto 0.6 X10*3/uL (0.1-1.2); Monocytes Percent Auto 5.4 % (2-11); Neutrophils Absolute Auto 8.1 X10*3/uL (2.0-8.3); Platelet Count 341 X10*3/uL (160-400); Red Blood Count 5.22 X10*6/uL (4.20-5.50); Red Cell Distribution Width 12.7 % (11.0-16.0); White Blood Count 11.9 X10*3/uL (4.8-10.8)
[2020-12-29] MEDS: ondansetron HCL 4 MG/2 ML VIAL IVPUSH (22:36)
[2020-12-29] MEDS: 0.9 % Sodium Chloride 1,000 ML 999 ML IV (22:36)
[2020-12-29 22:58] LABS: Lipase 24 U/L (8-78)
[2020-12-30 00:21] LABS: Alanine Aminotransferase 32 U/L (0-31); Albumin Level 4.2 g/dL (3.5-5.0); Alkaline Phosphatase 102 U/L (39-117); Anion Gap 17 (12-20); Aspartate Amino Transferase 21 U/L (5-31); Bilirubin Total 1.1 mg/dL (0.0-1.0); Blood Urea Nitrogen 8 mg/dL (9-16); Calcium 10.2 mg/dL (8.4-10.2); Carbon Dioxide 31 mmol/L (22-29); Chloride 89 mmol/L (96-108); Creatinine Clr Calc Pharmacy 76.3; Estimated Glomerular Filt Rate > 60; Glucose Random 410 mg/dL (60-115); Sodium 134 mmol/L (135-145); Total Protein 7.7 g/dL (6.5-8.0)
[2020-12-30] MEDS: Insulin Regular, Human 100 UNIT/ML 3 ML VIAL 8 UNIT SUBCUT (01:18)
[2020-12-30 02:00] VITALS: BP 140/97; PULSE 90; RESP 16; O2SAT 97
[2020-12-30 04:53] VITALS: BP 119/88; PULSE 93; RESP 16; O2SAT 98
[2020-12-30 05:09] LABS: Glucose, Whole Blood 178 mg/dL (60-115)
[2020-12-30 05:25] LABS: Glucose Urine UA 500 MG/DL (NEG); Leukocyte Esterase Urine NEG (NEG); Nitrite Urine NEG (NEG); Specific Gravity - Urine 1.025 (1.005-1.025); Urine Blood NEG (NEG); Urine Ketones 5 MG/DL (NEG); Urine Protein NEG (NEG-TRACE)
[2020-12-30 05:28] LABS: Appearance Urine CLEAR; Color Urine YELLOW
== END 2020-12-30 05:26 | disposition home or self-care (01) ==
PROVIDERS: Emergency Provider Emergency Medicine Emergency Medical Services; PCP Internal Medicine
DX: K29.70 Gastritis, unspecified, without bleeding (principal); R06.02 Shortness of breath
CPT/HCPCS: 36415; 76705; 80053; 81003; 82947; 83690; 85025; 93005; 96361; 96374; 99284; 99285; J2405

== ENCOUNTER 2021-01-08 22:04 | Emergency (ER) | payer MEDICAID, SELFPAY ==
[2021-01-08 22:18] VITALS: BP 131/106; PULSE 102; RESP 18; TEMP 36.5; O2SAT 96; BMI 34.9
[2021-01-09 01:06] LABS: Glucose, Whole Blood 499 mg/dL (60-115)
[2021-01-09 01:07] LABS: MANUAL DIFF FLAG NO
[2021-01-09 01:08] LABS: Basophils Absolute Auto 0.1 X10*3/uL (0.0-0.2); Basophils Percent Auto 0.4 % (0-2); Eosinophils Absolute Auto 0.1 X10*3/uL (0.0-0.4); Eosinophils Percent Auto 0.6 % (0-4); Hematocrit 45.9 % (37-47); Hemoglobin 16.3 g/dl (12.0-16.0); Imm Gran Abs Auto 0.06 X10*3/uL (0.00-0.03); Imm Gran Pct Auto 0.5 % (0.0-0.4); Lymphocytes Absolute Auto 3.3 X10*3/uL (1.2-4.9); Lymphocytes Percent Auto 26.4 % (20-40); Mean Corpuscular HGB Conc 35.5 g/dl (31.0-35.0); Mean Corpuscular Hemoglobin 30.9 pg (27.0-33.0); Mean Corpuscular Volume 86.9 fL (80-98); Mean Platelet Volume 10.4 fL (9.4-12.3); Monocytes Absolute Auto 0.7 X10*3/uL (0.1-1.2); Monocytes Percent Auto 5.7 % (2-11); Neutrophils Absolute Auto 8.3 X10*3/uL (2.0-8.3); Neutrophils Percent Auto 66.4 % (45-73); Platelet Count 380 X10*3/uL (160-400); Red Blood Count 5.28 X10*6/uL (4.20-5.50); Red Cell Distribution Width 12.3 % (11.0-16.0); White Blood Count 12.5 X10*3/uL (4.8-10.8)
[2021-01-09 01:30] LABS: Acetone, serum QL Small (Negative)
[2021-01-09 01:40] LABS: Alanine Aminotransferase 21 U/L (0-31); Albumin Level 4.2 g/dL (3.5-5.0); Alkaline Phosphatase 109 U/L (39-117); Anion Gap 22 (12-20); Aspartate Amino Transferase 20 U/L (5-31); Blood Urea Nitrogen 6 mg/dL (9-16); Calcium 9.5 mg/dL (8.4-10.2); Carbon Dioxide 25 mmol/L (22-29); Chloride 88 mmol/L (96-108); Creatinine Clr Calc Pharmacy 62.3; Estimated Glomerular Filt Rate 51; Glucose Random 521 mg/dL (60-115); Potassium 3.1 mmol/L (3.3-5.1); Sodium 132 mmol/L (135-145); Total Protein 7.6 g/dL (6.5-8.0)
[2021-01-09 01:43] VITALS: BP 152/88; PULSE 94; RESP 16; O2SAT 98
[2021-01-09] MEDS: 0.9 % Sodium Chloride 1,000 ML 999 ML IV ×3 (01:50→01:54)
[2021-01-09] MEDS: Insulin Regular, Human 100 UNIT/ML 3 ML VIAL 10 UNIT IVPUSH (01:58)
[2021-01-09] MEDS: Potassium Chloride ER 20 MEQ TAB.ER.PRT 40 MEQ PO (02:08)
--- NOTE | 2021-01-09 02:42 | ED_ITS ---
HPI - General Adult General Chief complaint: Dizziness <RUPERTO Ragsdale - Last Filed: 01/09/21 02:56> Stated complaint: dizziness <RUPERTO Ragsdale - Last Filed: 01/09/21 02:56> Time Seen by Provider: 01/08/21 23:39 <RUPERTO Ragsdale Last Filed: 01/09/21 02:56> Source: patient <RUPERTO Ragsdale Last Filed: 01/09/21 02:56> Mode of arrival: ambulatory <RUPERTO Ragsdale Last Filed: 01/09/21 02:56> Limitations: no limitations <RUPERTO Ragsdale Last Filed: 01/09/21 02:56> History of Present Illness HPI narrative: Patient present to the ED for dizziness due to elevated glucose. Patient recently diagnosed diabetic but has not taken insulin because the pharmacy did not her chief of pediatric urology her to glucometer to check for her glucose. <RUPERTO Ragsdale Last Filed: 01/09/21 02:56> Related Data Home medications: Home Medications Medication Instructions Recorded Confirmed atenolol 25 mg tablet 25 mg PO DAILY 04/21/20 11/13/20 lamotrigine 200 mg tablet 200 mg PO DAILY 04/21/20 11/13/20 venlafaxine 150 mg 150 mg PO DAILY 04/21/20 05/29/20 capsule,extended release 24 hr verapamil 120 mg tablet 120 mg PO DAILY 04/21/20 11/13/20 zolpidem 10 mg tablet 10 mg PO BEDTIME PRN 04/21/20 11/13/20 bisacodyl 5 mg tablet,delayed 10 mg PO BEDTIME 11/13/20 11/13/20 release paroxetine HCl 30 mg tablet 30 mg PO DAILY 11/13/20 11/13/20 quetiapine 50 mg tablet 50 mg PO DAILY 11/13/20 11/13/20 Previous Rx's Medication Instructions Recorded hydrocortisone 2.5 % topical cream 1 appl [place] BID PRN 30 Days #30 g 10/09/20 with perineal applicator linaclotide 145 mcg capsule 145 mcg PO QAM 30 Days #30 cap 10/09/20 dexamethasone 4 mg tablet 4 mg PO BID 30 Days #60 tab 10/16/20 ibuprofen 800 mg tablet 800 mg PO Q12H 30 Days #60 tab 11/07/20 docusate sodium 100 mg capsule 100 mg PO BID #60 cap 11/13/20 simethicone 180 mg capsule 180 mg PO TIDWMEAL 30 Days #90 cap 11/13/20 buprenorphine HCl 600 mcg buccal 600 mcg BUCCAL Q12H 30 Days #60 ea 11/15/20 film amoxicillin-pot clavulanate 1 tab PO BID #14 tab 11/23/20 [Augmentin] pantoprazole 20 mg tablet,delayed 20 mg PO DAILY #30 tab 12/04/20 release pantoprazole [Protonix] 40 mg PO DAILY 14 Days #14 tab 12/30/20 <RUPERTO Ragsdale Last Filed: 01/09/21 02:56> Allergies/adverse reactions: Allergies Allergy/AdvReac Type Severity Reaction Status Date / Time ENVIRONMENTAL Allergy Intermediate HAYFEVER Uncoded 09/18/20 14:46 SYMPTOMS <RUPERTO Ragsdale Last Filed: 01/09/21 02:56> Review of Systems Review of Systems: Yes all other systems are reviewed and are negative <RUPERTO Ragsdale Last Filed: 01/09/21 02:56> Constitutional: Constitutional: Reports as per HPI and Reports no additional constitutional complaints <RUPERTO Ragsdale Last Filed: 01/09/21 02:56> Eyes: Eyes: Reports as per HPI and Reports no additional eye complaints <RUPERTO Ragsdale Last Filed: 01/09/21 02:56> ENT: Reports system reviewed and no additional complaints, except as documented and Reports as per HPI <RUPERTO Ragsdale Last Filed: 01/09/21 02:56> Cardiovascular: Cardiovascular: Reports as per HPI and Reports no additional cardiovascular complaints <RUPERTO Ragsdale Last Filed: 01/09/21 02:56> Respiratory: Respiratory: Reports as per HPI and Reports no additional respiratory complaints <RUPERTO Ragsdale Last Filed: 01/09/21 02:56> Gastrointestinal: Gastrointestinal: Reports as per HPI and Reports no additional gastrointestinal complaints <RUPERTO Ragsdale Last Filed: 01/09/21 02:56> Genitourinary: Genitourinary: Reports no additional female genitourinary complaints and Reports as per HPI <RUPERTO Ragsdale Last Filed: 01/09/21 02:56> Musculoskeletal: Musculoskeletal: Reports no additional musculoskeletal complaints and Reports as per HPI <RUPERTO Ragsdale - Last Filed: 01/09/21 02:56> Neurologic: Reports system reviewed and no additional complaints, except as documented and Reports as per HPI <RUPERTO Ragsdale - Last Filed: 01/09/21 02:56> Psychiatric: Psychiatric: Reports no additional psychiatric complaints and Reports as per HPI <RUPERTO Ragsdale - Last Filed: 01/09/21 02:56> [facility] Past Medical History Medical History: Medical History Cervical spondylosis Cervicalgia Degenerative arthritis of thoracic spine Left elbow pain Left elbow pain Low back pain Lumbar spondylosis Thoracic spondylosis <RUPERTO Ragsdale - Last Filed: 01/09/21 02:56> Surgical History: Surgical History History of esophagogastroduodenoscopy (EGD) <RUPERTO Ragsdale - Last Filed: 01/09/21 02:56> Family History Family History: Family History Brother Leukemia Mother HTN (hypertension) Father Myocardial infarct <RUPERTO Ragsdale - Last Filed: 01/09/21 02:56> Social History Social History: Social History Household Members Other:: FOUR GROWN SONS LIVES ALONE Alcohol intake: never Advance Directives: No Advance Directives Information Provided: No Patient : No <RUPERTO Ragsdale - Last Filed: 01/09/21 02:56> Physical Exam Vital Signs: Vital Signs: Last Vital Signs Temp 97.7 F 01/08/21 22:18 Pulse 101 H 01/09/21 05:04 Resp 14 01/09/21 05:04 BP 120/64 01/09/21 05:04 Pulse Ox 98 01/09/21 05:04 Body Mass Index 34.9 <RUPERTO Ragsdale - Last Filed: 01/09/21 02:56> Vital Signs: Last Vital Signs Temp 97.7 F 01/08/21 22:18 Pulse 101 H 01/09/21 05:04 Resp 14 01/09/21 05:04 BP 120/64 01/09/21 05:04 Pulse Ox 98 01/09/21 05:04 Body Mass Index 34.9 <Katt Barriga MD - Last Filed: 01/09/21 06:56> Const: General: cooperative, healthy appearing, comfortable, no acute distress, well developed, alert, awake and Physically active <RUPERTO Ragsdale Last Filed: 01/09/21 02:56> Orientation/consciousness: patient oriented x3 <RUPERTO Ragsdale Last Filed: 01/09/21 02:56> HENMT: Head: Yes normal to inspection, Yes No palpable skull fracture present, Yes normocephalic and Yes atraumatic <RUPERTO Ragsdale Last Filed: 01/09/21 02:56> Eyes: General: appearance normal, both eyes and all related structures <RUPERTO Ragsdale Last Filed: 01/09/21 02:56> Neck: Neck: Yes normal visual inspection, Yes full ROM, Yes no lymphadenopathy, Yes no meningeal signs, Yes trachea midline, Yes supple and No tender <RUPERTO Ragsdale Last Filed: 01/09/21 02:56> Chest: Chest palpation & inspection: normal inspection of the chest and normal palpation of entire chest wall <RUPERTO Ragsdale Last Filed: 01/09/21 02:56> Resp: Effort & Inspection: normal respiratory effort and able to speak in complete sentences <RUPERTO Ragsdale Last Filed: 01/09/21 02:56> Auscultation: clear to auscultation bilaterally <RUPERTO Ragsdale Last Filed: 01/09/21 02:56> Cardio: Jugular venous distension: no JVD <RUPERTO Ragsdale Last Filed: 01/09/21 02:56> Heart sounds: S1 normal heart sound present and S2 normal heart sound present <RUPERTO Ragsdale Last Filed: 01/09/21 02:56> GI: Inspection: Yes normal to inspection and No abdominal wall ecchymosis <RUPERTO Ragsdale Last Filed: 01/09/21 02:56> Palpation (GI): Soft to palpation, not firm, nontender, no guarding and not rigid <RUPERTO Ragsdale - Last Filed: 01/09/21 02:56> : General: No CVA tenderness and Yes no CVA tenderness <RUPERTO Ragsdale Last Filed: 01/09/21 02:56> Back/Spine/Pelvis: Back: no CVA tenderness, No CVA tenderness and No back tenderness <RUPERTO Ragsdale - Last Filed: 01/09/21 02:56> Skin: General skin exam: no rashes or lesions noted and elasticity normal <RUPERTO Ragsdale Last Filed: 01/09/21 02:56> Neuro: General: patient oriented x3, gait normal, moves all extremities, Normal light touch and pain sensation, no meningeal signs, no focal motor deficits and CN's II-XI intact bilaterally <RUPERTO Ragsdale Last Filed: 01/09/21 02:56> Cranial nerves: Yes CN's II-XII intact bilaterally <RUPERTO Ragsdale Last Filed: 01/09/21 02:56> Extrem: General: Yes normal to inspection and Yes full ROM <RUPERTO Ragsdale Last Filed: 01/09/21 02:56> Psych: Appearance: grossly normal, well kempt and not disheveled <RUPERTO Ragsdale Last Filed: 01/09/21 02:56> Course Course Course Narrative: Patient will be evaluated with labs to see if in DKA. <RUPERTO Ragsdale Last Filed: 01/09/21 02:56> Patient re-evaluated and labs reviewed. On review of lab work gap is closed and there is appropriate glucose control. After 2 runs of potassium chloride potassium remained somewhat low at 2.8. Patient received 60 mEq of potassium chloride as well as an additional 10 mEq via IV. She is otherwise hemodynamically stable and will be discharged home with instructions follow-up with primary care provider in the next 1-2 days for re-evaluation. <Katt Barriga MD - Last Filed: 01/09/21 06:56> Reevaluation(s) Reevaluation #1: Patient is in mild DKA. case signed out to Dr. Barriga to follow CMP and glucose. Nurse Lubna placed email for shop welder to see patient. Patient is not not toxic appearing. negative for any neuro deficits. <RUPERTO Ragsdale - Last Filed: 01/09/21 02:56> Time: 02:54 <RUPERTO Ragsdale - Last Filed: 01/09/21 02:56> Medical Decision Making MDM Narrative Medical decision making narrative: hyperglycemia <RUPERTO Ragsdale - Last Filed: 01/09/21 02:56> Lab Data Result diagrams: : 01/09/21 01:02 01/09/21 04:30 <RUPERTO Ragsdale - Last Filed: 01/09/21 02:56> Labs: Lab Results 01/09/21 01/09/21 01/09/21 Range/Units 00:56 01:02 01:02 WBC 12.5 H (4.8-10.8) X10*3/uL RBC 5.28 (4.20-5.50) X10*6/uL Hgb 16.3 H (12.0-16.0) g/dl Hct 45.9 (37-47) % MCV 86.9 (80-98) fL MCH 30.9 (27.0-33.0) pg MCHC 35.5 H (31.0-35.0) g/dl RDW 12.3 (11.0-16.0) % Plt Count 380 (160-400) X10*3/uL MPV 10.4 (9.4-12.3) fL Immature Gran % (Auto) 0.5 H (0.0-0.4) % Neut % (Auto) 66.4 (45-73) % Lymph % (Auto) 26.4 (20-40) % [place] % (Auto) 5.7 (2-11) % Eos % (Auto) 0.6 (0-4) % Baso % (Auto) 0.4 (0-2) % Lymph # (Auto) 3.3 (1.2-4.9) X10*3/uL [place] # (Auto) 0.7 (0.1-1.2) X10*3/uL Eos # (Auto) 0.1 (0.0-0.4) X10*3/uL Baso # (Auto) 0.1 (0.0-0.2) X10*3/uL Abs Immat Gran (auto) 0.06 H (0.00-0.03) X10*3/uL Absolute Neuts (auto) 8.3 (2.0-8.3) X10*3/uL Absolute Nucleated RBC 0.000 (0.0-0.012) X10*3/uL Nucleated RBC % (auto) 0.0 (0.0-0.2) /100WBC Sodium 132 L (135-145) mmol/L Potassium 3.1 L (3.3-5.1) mmol/L Chloride 88 L (96-108) mmol/L Carbon Dioxide 25 (22-29) mmol/L Anion Gap 22 H (12-20) BUN 6 L (9-16) mg/dL Creatinine 1.14 (0.5-1.4) mg/dL Estim Creat Clear Calc 62.3 Estimated GFR 51 POC Glucose 499 H* (60-115) mg/dL Random Glucose 521 H* (60-115) mg/dL Calcium 9.5 D (8.4-10.2) mg/dL Total Bilirubin 1.0 (0.0-1.0) mg/dL AST 20 (5-31) U/L ALT 21 (0-31) U/L Alkaline Phosphatase 109 (39-117) U/L Total Protein 7.6 (6.5-8.0) g/dL Albumin 4.2 (3.5-5.0) g/dL Urine Color Urine Appearance Urine pH (5.0-8.0) Ur Specific [place] (1.005-1.025) Urine Protein (NEG-TRACE) MG/DL Urine Glucose (UA) (NEG) MG/DL Urine Ketones (NEG) MG/DL Urine Blood (NEG) Urine Nitrite (NEG) Ur Leukocyte Esterase (NEG) Urine RBC (0) /HPF Urine WBC (0-4) /HPF Ur Squamous Epith Cells /LPF Urine Bacteria /LPF Urine Yeast /HPF Acetone, Qual (Negative) 01/09/21 01/09/21 01/09/21 Range/Units 01:02 04:01 04:23 WBC (4.8-10.8) X10*3/uL RBC (4.20-5.50) X10*6/uL Hgb (12.0-16.0) g/dl Hct (37-47) % MCV (80-98) fL MCH (27.0-33.0) pg MCHC (31.0-35.0) g/dl RDW (11.0-16.0) % Plt Count (160-400) X10*3/uL MPV (9.4-12.3) fL Immature Gran % (Auto) (0.0-0.4) % Neut % (Auto) (45-73) % Lymph % (Auto) (20-40) % [place] % (Auto) (2-11) % Eos % (Auto) (0-4) % Baso % (Auto) (0-2) % Lymph # (Auto) (1.2-4.9) X10*3/uL [place] # (Auto) (0.1-1.2) X10*3/uL Eos # (Auto) (0.0-0.4) X10*3/uL Baso # (Auto) (0.0-0.2) X10*3/uL Abs Immat Gran (auto) (0.00-0.03) X10*3/uL Absolute Neuts (auto) (2.0-8.3) X10*3/uL Absolute Nucleated RBC (0.0-0.012) X10*3/uL Nucleated RBC % (auto) (0.0-0.2) /100WBC Sodium (135-145) mmol/L Potassium (3.3-5.1) mmol/L Chloride (96-108) mmol/L Carbon Dioxide (22-29) mmol/L Anion Gap (12-20) BUN (9-16) mg/dL Creatinine (0.5-1.4) mg/dL Estim Creat Clear Calc Estimated GFR POC Glucose 300 H (60-115) mg/dL Random Glucose (60-115) mg/dL Calcium (8.4-10.2) mg/dL Total Bilirubin (0.0-1.0) mg/dL AST (5-31) U/L ALT (0-31) U/L Alkaline Phosphatase (39-117) U/L Total Protein (6.5-8.0) g/dL Albumin (3.5-5.0) g/dL Urine Color STRAW Urine Appearance CLEAR Urine pH 6.0 (5.0-8.0) Ur Specific [place] 1.010 (1.005-1.025) Urine Protein NEG (NEG-TRACE) MG/DL Urine Glucose (UA) >=1000 H (NEG) MG/DL Urine Ketones >=80 (NEG) MG/DL Urine Blood NEG (NEG) Urine Nitrite NEG (NEG) Ur Leukocyte Esterase NEG (NEG) Urine RBC 0 (0) /HPF Urine WBC 0-2 (0-4) /HPF Ur Squamous Epith Cells 1+ /LPF Urine Bacteria NONE /LPF Urine Yeast TRACE /HPF Acetone, Qual Small H (Negative) 01/09/21 01/09/21 Range/Units 04:30 06:13 WBC (4.8-10.8) X10*3/uL RBC (4.20-5.50) X10*6/uL Hgb (12.0-16.0) g/dl Hct (37-47) % MCV (80-98) fL MCH (27.0-33.0) pg MCHC (31.0-35.0) g/dl RDW (11.0-16.0) % Plt Count (160-400) X10*3/uL MPV (9.4-12.3) fL Immature Gran % (Auto) (0.0-0.4) % Neut % (Auto) (45-73) % Lymph % (Auto) (20-40) % [place] % (Auto) (2-11) % Eos % (Auto) (0-4) % Baso % (Auto) (0-2) % Lymph # (Auto) (1.2-4.9) X10*3/uL [place] # (Auto) (0.1-1.2) X10*3/uL Eos # (Auto) (0.0-0.4) X10*3/uL Baso # (Auto) (0.0-0.2) X10*3/uL Abs Immat Gran (auto) (0.00-0.03) X10*3/uL Absolute Neuts (auto) (2.0-8.3) X10*3/uL Absolute Nucleated RBC (0.0-0.012) X10*3/uL Nucleated RBC % (auto) (0.0-0.2) /100WBC Sodium 136 (135-145) mmol/L Potassium 2.8 L (3.3-5.1) mmol/L Chloride 98 (96-108) mmol/L Carbon Dioxide 25 (22-29) mmol/L Anion Gap 16 (12-20) BUN 5 L (9-16) mg/dL Creatinine 0.79 (0.5-1.4) mg/dL Estim Creat Clear Calc 89.9 Estimated GFR > 60 POC Glucose 267 H (60-115) mg/dL Random Glucose 289 H D (60-115) mg/dL Calcium 8.0 L D (8.4-10.2) mg/dL Total Bilirubin (0.0-1.0) mg/dL AST (5-31) U/L ALT (0-31) U/L Alkaline Phosphatase (39-117) U/L Total Protein (6.5-8.0) g/dL Albumin (3.5-5.0) g/dL Urine Color Urine Appearance Urine pH (5.0-8.0) Ur Specific [place] (1.005-1.025) Urine Protein (NEG-TRACE) MG/DL Urine Glucose (UA) (NEG) MG/DL Urine Ketones (NEG) MG/DL Urine Blood (NEG) Urine Nitrite (NEG) Ur Leukocyte Esterase (NEG) Urine RBC (0) /HPF Urine WBC (0-4) /HPF Ur Squamous Epith Cells /LPF Urine Bacteria /LPF Urine Yeast /HPF Acetone, Qual (Negative) <RUPERTO Ragsdale - Last Filed: 01/09/21 02:56> Lab Results 01/09/21 01/09/21 01/09/21 Range/Units 00:56 01:02 01:02 WBC 12.5 H (4.8-10.8) X10*3/uL RBC 5.28 (4.20-5.50) X10*6/uL Hgb 16.3 H (12.0-16.0) g/dl Hct 45.9 (37-47) % MCV 86.9 (80-98) fL MCH 30.9 (27.0-33.0) pg MCHC 35.5 H (31.0-35.0) g/dl RDW 12.3 (11.0-16.0) % Plt Count 380 (160-400) X10*3/uL MPV 10.4 (9.4-12.3) fL Immature Gran % (Auto) 0.5 H (0.0-0.4) % Neut % (Auto) 66.4 (45-73) % Lymph % (Auto) 26.4 (20-40) % [place] % (Auto) 5.7 (2-11) % Eos % (Auto) 0.6 (0-4) % Baso % (Auto) 0.4 (0-2) % Lymph # (Auto) 3.3 (1.2-4.9) X10*3/uL [place] # (Auto) 0.7 (0.1-1.2) X10*3/uL Eos # (Auto) 0.1 (0.0-0.4) X10*3/uL Baso # (Auto) 0.1 (0.0-0.2) X10*3/uL Abs Immat Gran (auto) 0.06 H (0.00-0.03) X10*3/uL Absolute Neuts (auto) 8.3 (2.0-8.3) X10*3/uL Absolute Nucleated RBC 0.000 (0.0-0.012) X10*3/uL Nucleated RBC % (auto) 0.0 (0.0-0.2) /100WBC Sodium 132 L (135-145) mmol/L Potassium 3.1 L (3.3-5.1) mmol/L Chloride 88 L (96-108) mmol/L Carbon Dioxide 25 (22-29) mmol/L Anion Gap 22 H (12-20) BUN 6 L (9-16) mg/dL Creatinine 1.14 (0.5-1.4) mg/dL Estim Creat Clear Calc 62.3 Estimated GFR 51 POC Glucose 499 H* (60-115) mg/dL Random Glucose 521 H* (60-115) mg/dL Calcium 9.5 D (8.4-10.2) mg/dL Total Bilirubin 1.0 (0.0-1.0) mg/dL AST 20 (5-31) U/L ALT 21 (0-31) U/L Alkaline Phosphatase 109 (39-117) U/L Total Protein 7.6 (6.5-8.0) g/dL Albumin 4.2 (3.5-5.0) g/dL Urine Color Urine Appearance Urine pH (5.0-8.0) Ur Specific [place] (1.005-1.025) Urine Protein (NEG-TRACE) MG/DL Urine Glucose (UA) (NEG) MG/DL Urine Ketones (NEG) MG/DL Urine Blood (NEG) Urine Nitrite (NEG) Ur Leukocyte Esterase (NEG) Urine RBC (0) /HPF Urine WBC (0-4) /HPF Ur Squamous Epith Cells /LPF Urine Bacteria /LPF Urine Yeast /HPF Acetone, Qual (Negative) 01/09/21 01/09/21 01/09/21 Range/Units 01:02 04:01 04:23 WBC (4.8-10.8) X10*3/uL RBC (4.20-5.50) X10*6/uL Hgb (12.0-16.0) g/dl Hct (37-47) % MCV (80-98) fL MCH (27.0-33.0) pg MCHC (31.0-35.0) g/dl RDW (11.0-16.0) % Plt Count (160-400) X10*3/uL MPV (9.4-12.3) fL Immature Gran % (Auto) (0.0-0.4) % Neut % (Auto) (45-73) % Lymph % (Auto) (20-40) % [place] % (Auto) (2-11) % Eos % (Auto) (0-4) % Baso % (Auto) (0-2) % Lymph # (Auto) (1.2-4.9) X10*3/uL [place] # (Auto) (0.1-1.2) X10*3/uL Eos # (Auto) (0.0-0.4) X10*3/uL Baso # (Auto) (0.0-0.2) X10*3/uL Abs Immat Gran (auto) (0.00-0.03) X10*3/uL Absolute Neuts (auto) (2.0-8.3) X10*3/uL Absolute Nucleated RBC (0.0-0.012) X10*3/uL Nucleated RBC % (auto) (0.0-0.2) /100WBC Sodium (135-145) mmol/L Potassium (3.3-5.1) mmol/L Chloride (96-108) mmol/L Carbon Dioxide (22-29) mmol/L Anion Gap (12-20) BUN (9-16) mg/dL Creatinine (0.5-1.4) mg/dL Estim Creat Clear Calc Estimated GFR POC Glucose 300 H (60-115) mg/dL Random Glucose (60-115) mg/dL Calcium (8.4-10.2) mg/dL Total Bilirubin (0.0-1.0) mg/dL AST (5-31) U/L ALT (0-31) U/L Alkaline Phosphatase (39-117) U/L Total Protein (6.5-8.0) g/dL Albumin (3.5-5.0) g/dL Urine Color STRAW Urine Appearance CLEAR Urine pH 6.0 (5.0-8.0) Ur Specific [place] 1.010 (1.005-1.025) Urine Protein NEG (NEG-TRACE) MG/DL Urine Glucose (UA) >=1000 H (NEG) MG/DL Urine Ketones >=80 (NEG) MG/DL Urine Blood NEG (NEG) Urine Nitrite NEG (NEG) Ur Leukocyte Esterase NEG (NEG) Urine RBC 0 (0) /HPF Urine WBC 0-2 (0-4) /HPF Ur Squamous Epith Cells 1+ /LPF Urine Bacteria NONE /LPF Urine Yeast TRACE /HPF Acetone, Qual Small H (Negative) 01/09/21 01/09/21 Range/Units 04:30 06:13 WBC (4.8-10.8) X10*3/uL RBC (4.20-5.50) X10*6/uL Hgb (12.0-16.0) g/dl Hct (37-47) % MCV (80-98) fL MCH (27.0-33.0) pg MCHC (31.0-35.0) g/dl RDW (11.0-16.0) % Plt Count (160-400) X10*3/uL MPV (9.4-12.3) fL Immature Gran % (Auto) (0.0-0.4) % Neut % (Auto) (45-73) % Lymph % (Auto) (20-40) % [place] % (Auto) (2-11) % Eos % (Auto) (0-4) % Baso % (Auto) (0-2) % Lymph # (Auto) (1.2-4.9) X10*3/uL [place] # (Auto) (0.1-1.2) X10*3/uL Eos # (Auto) (0.0-0.4) X10*3/uL Baso # (Auto) (0.0-0.2) X10*3/uL Abs Immat Gran (auto) (0.00-0.03) X10*3/uL Absolute Neuts (auto) (2.0-8.3) X10*3/uL Absolute Nucleated RBC (0.0-0.012) X10*3/uL Nucleated RBC % (auto) (0.0-0.2) /100WBC Sodium 136 (135-145) mmol/L Potassium 2.8 L (3.3-5.1) mmol/L Chloride 98 (96-108) mmol/L Carbon Dioxide 25 (22-29) mmol/L Anion Gap 16 (12-20) BUN 5 L (9-16) mg/dL Creatinine 0.79 (0.5-1.4) mg/dL Estim Creat Clear Calc 89.9 Estimated GFR > 60 POC Glucose 267 H (60-115) mg/dL Random Glucose 289 H D (60-115) mg/dL Calcium 8.0 L D (8.4-10.2) mg/dL Total Bilirubin (0.0-1.0) mg/dL AST (5-31) U/L ALT (0-31) U/L Alkaline Phosphatase (39-117) U/L Total Protein (6.5-8.0) g/dL Albumin (3.5-5.0) g/dL Urine Color Urine Appearance Urine pH (5.0-8.0) Ur Specific [place] (1.005-1.025) Urine Protein (NEG-TRACE) MG/DL Urine Glucose (UA) (NEG) MG/DL Urine Ketones (NEG) MG/DL Urine Blood (NEG) Urine Nitrite (NEG) Ur Leukocyte Esterase (NEG) Urine RBC (0) /HPF Urine WBC (0-4) /HPF Ur Squamous Epith Cells /LPF Urine Bacteria /LPF Urine Yeast /HPF Acetone, Qual (Negative) <Katt Barriga MD - Last Filed: 01/09/21 06:56> Discharge Plan Discharge Clinical Impression: Acute hyperglycemia <RUPERTO Ragsdale - Last Filed: 01/09/21 02:56> Prescriptions: No Action dexamethasone 4 mg tablet 4 mg PO BID 30 Days Qty: 60 RF: 0 ibuprofen 800 mg tablet 800 mg PO Q12H 30 Days Qty: 60 RF: 1 pantoprazole 20 mg tablet,delayed release (DR/EC) 20 mg PO DAILY Qty: 30 RF: 6 amoxicillin-pot clavulanate [Augmentin] 875-125 mg tablet 1 tab PO BID Qty: 14 RF: 0 pantoprazole [Protonix] 40 mg tablet,delayed release (DR/EC) 40 mg PO DAILY 14 Days Qty: 14 RF: 0 atenolol 25 mg tablet 25 mg PO DAILY RF: 0 lamotrigine 200 mg tablet 200 mg PO DAILY RF: 0 verapamil 120 mg tablet 120 mg PO DAILY RF: 0 venlafaxine 150 mg capsule,extended release 24hr 150 mg PO DAILY RF: 0 zolpidem 10 mg tablet 10 mg PO BEDTIME PRNRF: 0 Linzess 145 mcg capsule 145 mcg PO QAM 30 Days Qty: 30 RF: 4 hydrocortisone [Proctosol HC] 2.5 % cream with perineal applicator 1 appl [place] BID PRN (Reason: hemorrhoids) 30 Days Qty: 30 RF: 6 quetiapine [Seroquel] 50 mg tablet 50 mg PO DAILY RF: 0 paroxetine HCl 30 mg tablet 30 mg PO DAILY RF: 0 simethicone 180 mg capsule 180 mg PO TIDWMEAL 30 Days Qty: 90 RF: 3 bisacodyl [Dulcolax (bisacodyl)] 5 mg tablet,delayed release (DR/EC) 10 mg PO BEDTIME RF: 0 docusate sodium [Colace] 100 mg capsule 100 mg PO BID Qty: 60 RF: 3 Belbuca 600 mcg film 600 mcg buccal Q12H 30 Days Qty: 60 RF: 0 <RUPERTO Ragsdale - Last Filed: 01/09/21 02:56>
[2021-01-09] MEDS: Potassium Chloride/H20 10 MEQ/100 ML PIGGYBACK 100 MEQ IV ×3 (02:44→05:30)
[2021-01-09 04:00] VITALS: BP 121/66; PULSE 90; RESP 16; O2SAT 99
[2021-01-09 04:07] LABS: Glucose, Whole Blood 300 mg/dL (60-115)
[2021-01-09 04:35] LABS: Appearance Urine CLEAR; Color Urine STRAW; Glucose Urine UA >=1000 MG/DL (NEG); Leukocyte Esterase Urine NEG (NEG); Nitrite Urine NEG (NEG); Urine Blood NEG (NEG); Urine Ketones >=80 MG/DL (NEG); Urine Protein NEG (NEG-TRACE)
[2021-01-09 04:40] LABS: RBC Urine 0 /HPF (0); Squamous Epithelial Cell Urine 1+ /LPF; WBC Urine 0-2 /HPF (0-4)
[2021-01-09 05:04] VITALS: BP 120/64; PULSE 101; RESP 14; O2SAT 98
[2021-01-09 05:08] LABS: Anion Gap 16 (12-20); Blood Urea Nitrogen 5 mg/dL (9-16); Carbon Dioxide 25 mmol/L (22-29); Chloride 98 mmol/L (96-108); Creatinine Clr Calc Pharmacy 89.9; Estimated Glomerular Filt Rate > 60; Glucose Random 289 mg/dL (60-115); Potassium 2.8 mmol/L (3.3-5.1); Sodium 136 mmol/L (135-145)
[2021-01-09] MEDS: Potassium Chloride ER 20 MEQ TAB.ER.PRT 60 MEQ PO (05:30)
[2021-01-09 06:17] LABS: Glucose, Whole Blood 267 mg/dL (60-115)
[2021-01-09 07:23] VITALS: BP 122/88; PULSE 88; RESP 16; TEMP 36.7; O2SAT 98
== END 2021-01-09 07:48 | disposition home or self-care (01) ==
PROVIDERS: Emergency Medicine; Physician Assistant; Emergency Provider Student in an Organized Health Care Education/Training Program; PCP Internal Medicine
DX: E11.65 Type 2 diabetes mellitus with hyperglycemia (principal); E87.6 Hypokalemia
CPT/HCPCS: 36415; 80048; 80053; 81001; 82009; 82947; 85025; 96361; 96365; 96366; 96375; 96376; 99284

== ENCOUNTER → 2021-05-13 20:37 | Outpatient (REF) | payer MEDICAID, SELFPAY | LOC: HO.SL 20:37 | PROVIDERS: PCP Internal Medicine; Visit Provider Internal Medicine | DX: R40.0 Somnolence (principal) | CPT/HCPCS: 95810 ==

== ENCOUNTER 2022-04-30 14:05 | Outpatient (REF) | payer MEDICAID, SELFPAY ==
--- NOTE | ~2022-04-30 | XR_ITS ---
EXAMINATION: XR CHEST CLINICAL INFORMATION: Edema COMPARISON: Chest radiographs 11/11/2020, 04/16/2016 TECHNIQUE: 2 views of the chest were obtained. FINDINGS: Lungs clear. No infiltrate or effusion. The heart is normal in size. The vascularity is normal. The hilar and mediastinal contours are normal. No acute bony abnormality. XR/XR chest 2V IMPRESSION: Unremarkable examination.
== END 2022-04-30 14:06 | disposition home or self-care (01) ==
LOC: HO.XRAY 14:05
PROVIDERS: PCP Internal Medicine; Visit Provider Internal Medicine
DX: R60.9 Edema, unspecified (principal)
CPT/HCPCS: 71046

== ENCOUNTER 2022-05-08 12:17 | Outpatient (RCR) | payer MEDICAID, SELFPAY ==
[2022-05-08 13:03] VITALS: BP 126/75; PULSE 77
== END 2022-05-28 15:29 | disposition home or self-care (01) ==
LOC: HO.PT 12:17
PROVIDERS: PCP Internal Medicine; Visit Provider Internal Medicine
DX: M25.562 Pain in left knee (principal)
CPT/HCPCS: 97110; 97161

== ENCOUNTER 2022-09-14 19:06 | Emergency (ER) | payer MEDICAID, SELFPAY ==
--- NOTE | 2022-09-14 | ECG_ITS ---
Test Reason : chest pain Blood Pressure : / mmHG Vent. Rate : 086 BPM Atrial Rate : 086 BPM P-R Int : 146 ms QRS Dur : 070 ms QT Int : 370 ms P-R-T Axes : 028 -07 026 degrees QTc Int : 442 ms Normal sinus rhythm Low voltage QRS Borderline ECG When compared with ECG of 29-DEC-2020 21:59, No significant change was found Referred By: Generic ED Physician Electronically Signed By:LYN FELTON MD
--- NOTE | ~2022-09-14 | XR_ITS ---
EXAMINATION: XR CHEST CLINICAL INFORMATION: Chest pain COMPARISON: 04/30/2022 TECHNIQUE: Frontal view of the chest was obtained. FINDINGS: No significant abnormality is noted involving the heart, lungs, mediastinum, bony thorax or soft tissues. XR/XR chest 1V IMPRESSION: Unremarkable examination.
--- NOTE | 2022-09-14 08:01 | ECG_ITS ---
Test Reason : CHEST PAIN Blood Pressure : / mmHG Vent. Rate : 084 BPM Atrial Rate : 084 BPM P-R Int : 144 ms QRS Dur : 072 ms QT Int : 394 ms P-R-T Axes : 032 001 023 degrees QTc Int : 465 ms Normal sinus rhythm Low voltage QRS Borderline ECG When compared with ECG of 14-SEP-2022 19:18, No significant change was found Referred By: Benedict Kwan Electronically Signed By:LYN FELTON MD
[2022-09-14 19:14] VITALS: BP 136/84; PULSE 85; RESP 18; TEMP 36.9; O2SAT 98; BMI 41.3
[2022-09-14 19:40] LABS: MANUAL DIFF FLAG NO
[2022-09-14 19:41] LABS: Basophils Percent Auto 0.4 % (0-2); Eosinophils Absolute Auto 0.2 X10*3/uL (0.0-0.4); Eosinophils Percent Auto 2.5 % (0-4); Hemoglobin 14.3 g/dl (12.0-16.0); Imm Gran Abs Auto 0.03 X10*3/uL (0.00-0.03); Imm Gran Pct Auto 0.4 % (0.0-0.4); Lymphocytes Absolute Auto 2.8 X10*3/uL (1.2-4.9); Lymphocytes Percent Auto 33.3 % (20-40); Mean Corpuscular Volume 85.2 fL (80.0-98.0); Mean Platelet Volume 9.2 fL (9.4-12.3); Monocytes Absolute Auto 0.5 X10*3/uL (0.1-1.2); Monocytes Percent Auto 5.7 % (2-11); Neutrophils Absolute Auto 4.9 x10*3/uL (2.0-8.3); Neutrophils Percent Auto 57.7 % (45-73); Platelet Count 311 X10*3/uL (160-400); Red Blood Count 4.93 X10*6/uL (4.20-5.50); Red Cell Distribution Width 13.4 % (11.0-16.0); White Blood Count 8.4 X10*3/uL (4.8-10.8)
--- NOTE | 2022-09-14 19:41 | MHC.EDTECH ---
patient ekg taken and was read by provider ,covid and flu swab collected,also labs drawn and sent to lab
[2022-09-14 19:46] LABS: INTERNATIONAL NORM RATIO 1.2 (0.9-1.1); Prothrombin Time 13.4 SEC (10.0-13.1)
[2022-09-14 19:58] LABS: Alanine Aminotransferase 21 U/L (0-31); Albumin Level 3.7 g/dL (3.5-5.0); Alkaline Phosphatase 80 U/L (39-117); Anion Gap 16 (12-20); Aspartate Amino Transferase 16 U/L (5-31); Bilirubin Total 0.4 mg/dL (0.0-1.0); Blood Urea Nitrogen 7 mg/dL (9-16); COVID-19 Test Negative (Negative); Calcium 8.7 mg/dL (8.4-10.2); Carbon Dioxide 25 mmol/L (22-29); Chloride 106 mmol/L (96-108); Creatinine Clr Calc Pharmacy 89.7; Estimated Glomerular Filt Rate > 60; Glucose Random 161 mg/dL (60-115); IDNOW Serial# 55D5AD1C; IDNOW Serial# 6674DD1D; Influenza A Negative (Negative); Influenza B2 Negative (Negative); Potassium 3.9 mmol/L (3.3-5.1); Sodium 143 mmol/L (135-145); Total Protein 7.1 g/dL (6.5-8.0)
[2022-09-14 20:08] LABS: Troponin-I High Sensitivity < 3.5 ng/L (<3.5-17.0)
[2022-09-14 20:22] VITALS: BP 115/69; PULSE 89; RESP 21; TEMP 36.8; O2SAT 97
--- NOTE | 2022-09-14 20:49 | PC.NURSE ---
Pt resting on stretcher, verbalizes 10/10 chest pain going on for one week. Pt coughing, VSS at this time. Awaiting provider orders
--- NOTE | 2022-09-14 20:55 | ED_ITS ---
HPI - Chest Pain General Chief Complaint: Chest Pain Stated Complaint: Chest pain/Diff breathing Time Seen by Provider: 09/14/22 20:55 Source: patient Mode of arrival: ambulatory Limitations: no limitations History of Present Illness HPI narrative: 46-year-old female who presents emergency department for evaluation of cough chest pain, shortness of breath x1 week. Patient states she does have a history of asthma and has an albuterol inhaler and nebulizer which she has been using with no improvement of her symptoms. She states she has a cough which is occasionally productive of thick white to yellow sputum with occasional streaks of blood in the cough. She complains of shortness of breath dyspnea on exert ion. She complains of pain in the center of her chest which is worse with breathing worse with coughing. The patient had subjective fever and chills. She has had rhinorrhea with no sore throat. She denied nausea, vomiting, diarrhea, myalgias, arthralgias. Related Data Home Medications Medication Instructions Recorded Confirmed atenolol 25 mg tablet 25 mg PO DAILY 04/21/20 11/13/20 lamotrigine 200 mg tablet 200 mg PO DAILY 04/21/20 11/13/20 venlafaxine 150 mg 150 mg PO DAILY 04/21/20 05/29/20 capsule,extended release 24 hr verapamil 120 mg tablet 120 mg PO DAILY 04/21/20 11/13/20 zolpidem 10 mg tablet 10 mg PO BEDTIME PRN 04/21/20 11/13/20 bisacodyl 5 mg tablet,delayed 10 mg PO BEDTIME 11/13/20 11/13/20 release (Dulcolax (bisacodyl)) paroxetine HCl 30 mg tablet 30 mg PO DAILY 11/13/20 11/13/20 quetiapine 50 mg tablet (Seroquel) 50 mg PO DAILY 11/13/20 11/13/20 Previous Rx's Medication Instructions Recorded hydrocortisone 2.5 % topical cream 1 appl NV BID PRN hemorrhoids 30 10/09/20 with perineal applicator days #30 grams (Proctosol HC) dexamethasone 4 mg tablet 4 mg PO BID 30 days #60 tabs 10/16/20 ibuprofen 800 mg tablet 800 mg PO Q12H 30 days #60 tabs 11/07/20 docusate sodium 100 mg capsule 100 mg PO BID #60 caps 11/13/20 (Colace) simethicone 180 mg capsule 180 mg PO TIDWMEAL 30 days #90 caps 11/13/20 buprenorphine HCl 600 mcg buccal 600 mcg buccal Q12H 30 days #60 ea 11/15/20 film (Belbuca) amoxicillin 875 mg-potassium 1 tab PO BID #14 tabs 11/23/20 clavulanate 125 mg tablet (Augmentin) pantoprazole 20 mg tablet,delayed 20 mg PO DAILY #30 tabs 12/04/20 release pantoprazole 40 mg tablet,delayed 40 mg PO DAILY 14 days #14 tabs 12/30/20 release (Protonix) potassium chloride 20 mEq oral 20 meq PO DAILY #4 ea 01/09/21 packet linaclotide 145 mcg capsule 145 mcg PO QAM #30 caps 01/21/22 (Linzess) doxycycline hyclate 100 mg tablet 100 mg PO Q12H 7 days #14 tabs 09/14/22 prednisone 20 mg tablet 40 mg PO DAILY 5 days #10 tabs 09/14/22 Allergies Allergy/AdvReac Type Severity Reaction Status Date / Time ENVIRONMENTAL Allergy Intermediate HAYFEVER Uncoded 09/18/20 14:46 SYMPTOMS Review of Systems Review of Systems: Yes all other systems are reviewed and are negative [facility] Past Medical History [facility] Narrative: Social history: The patient denies tobacco use. She is a former smoker but quit smoking 20 years prior. She denies alcohol use. Medical History Cervical spondylosis Cervicalgia Degenerative arthritis of thoracic spine Left elbow pain Left elbow pain Low back pain Lumbar spondylosis Thoracic spondylosis Surgical History History of esophagogastroduodenoscopy (EGD) Family History Family History Brother Leukemia Mother HTN (hypertension) Father Myocardial infarct Social History Social History Household Members Other:: FOUR GROWN SONS LIVES ALONE Alcohol intake: never Advance Directives: No Advance Directives Information Provided: Yes Physical Exam Vital Signs: Vital Signs: Last Vital Signs Temp 98.3 F 09/14/22 20:22 Pulse 89 09/14/22 20:22 Resp 21 H 09/14/22 20:22 BP 115/69 09/14/22 20:22 Pulse Ox 97 09/14/22 20:22 O2 Del Method 09/14/22 20:22 BMI result Body Mass Index 41.3 Const: General: cooperative and no acute distress Orie ntation/consciousness: oriented to person and oriented to place Limitations: no limitations HEENT: Head: Yes normal to inspection, Yes normocephalic and Yes atraumatic Ears: external ears normal General nose exam: Normal external nose present Face and sinus: Yes normal facial exam Mouth: Normal oral and palatal mucosa present Throat: Yes posterior oropharynx normal Eyes: General: appearance normal, both eyes and all related structures Pupils: Equal, round and reactive pupils present Neck: Neck: Yes normal visual inspection, Yes no lymphadenopathy, Yes trachea midline and Yes supple Chest: Chest palpation & inspection: normal inspection of the chest and normal palpation of entire chest wall Resp: Other: Patient does not appear to be in respiratory distress, she has wheezing at the end of expiration, she has significant coughing after forced expiration, there is no rales or rhonchi noted, breath sounds are symmetric bilaterally Cardio: Rate: regular rate Rhythm: regular rhythm Heart sounds: S1 normal heart sound present, S2 normal heart sound present and no murmurs GI: Inspection: Yes normal to inspection Palpation (GI): Soft to palpation, nontender and no guarding Auscultation: normal bowel sounds : General: Yes no CVA tenderness Back/Spine/Pelvis: Back: no CVA tenderness Skin: General skin exam: no rashes or lesions noted Neuro: General: oriented to person and oriented to place Cranial nerves: Yes Equal, round and reactive pupils present Cognition (Neuro): normal cognition Extrem: General: Yes normal to inspection Psych: Appearance: grossly normal Speech and movement: Normal speech and movement present Affect: normal affect Attitude: cooperative Medical Decision Making Medical Decision Making MDM Narrative: 46-year-old female who presents emergency department for evaluation of fever, chills, productive cough with occasional blood streaks sputum, pleuritic chest pain, shortness of breath and dyspnea on exertion x1 week. Patient does have a history of asthma and she has been using her inhaler nebulizer with no improvement of her symptoms. Vital signs were normal. Lung exam did reveal wheezing at the end of expiration, coughing after forced expiration with no rales or rhonchi. Laboratory evaluation was ordered to include CBC, CMP, troponin, COVID-19 influenza. Chest x-ray and EKG was also ordered. 2123: Patient's laboratory evaluation was unremarkable. The chest x-ray revealed no evidence of pneumonia. Patient's presentation is concerning for bacterial bronchitis specially since she has blood streaked sputum with asthma exacerbation. Patient was given doxycycline 100 mg orally and prednisone 40 mg orally. Patient was given prescriptions for doxycycline 100 mg every 12 hours for 7 days and prednisone 40 mg once a day for 5 days. She was given printed and verbal instructions and discharged home. Lab Data MDM Lab Attestation statement: I reviewed the patient's lab results. My independent interpretation of the patient's laboratory evaluation is as follows: CBC, CMP, PT/INR were normal. High sensitive troponin I was below detectable limits. COVID-19 and influenza were negative. 09/14/22 19:32 09/14/22 19:32 Labs: Lab Results 09/14/22 09/14/22 09/14/22 Range/Units 19:32 19:32 19:32 WBC 8.4 (4.8-10.8) X10*3/uL RBC 4.93 (4.20-5.50) X10*6/uL Hgb 14.3 (12.0-16.0) g/dl Hct 42.0 (37.0-47.0) % MCV 85.2 (80.0-98.0) fL MCH 29.0 (27.0-33.0) pg MCHC 34.0 (31.0-35.0) g/dl RDW 13.4 (11.0-16.0) % Plt Count 311 (160-400) X10*3/uL MPV 9.2 L (9.4-12.3) fL Immature Gran % (Auto) 0.4 (0.0-0.4) % Neut % (Auto) 57.7 (45-73) % Lymph % (Auto) 33.3 (20-40) % Duchesne % (Auto) 5.7 (2-11) % Eos % (Auto) 2.5 (0-4) % Baso % (Auto) 0.4 (0-2) % Lymph # (Auto) 2.8 (1.2-4.9) X10*3/uL Duchesne # (Auto) 0.5 (0.1-1.2) X10*3/uL Eos # (Auto) 0.2 (0.0-0.4) X10*3/uL Baso # (Auto) 0.0 (0.0-0.2) X10*3/uL Abs Immat Gran (auto) 0.03 (0.00-0.03) X10*3/uL Absolute Neuts (auto) 4.9 (2.0-8.3) x10*3/uL Absolute Nucleated RBC 0.000 (0.0-0.012) X10*3/uL Nucleated RBC % (auto) 0.0 (0.0-0.2) /100WBC PT 13.4 H (10.0-13.1) SEC INR 1.2 H (0.9-1.1) Sodium 143 (135-145) mmol/L Potassium 3.9 D (3.3-5.1) mmol/L Chloride 106 (96-108) mmol/L Carbon Dioxide 25 (22-29) mmol/L Anion Gap 16 (12-20) BUN 7 L (9-16) mg/dL Creatinine 0.86 (0.5-1.4) mg/dL Estim Creat Clear Calc 89.7 Estimated GFR > 60 Random Glucose 161 H (60-115) mg/dL Calcium 8.7 D (8.4-10.2) mg/dL Total Bilirubin 0.4 (0.0-1.0) mg/dL AST 16 (5-31) U/L ALT 21 (0-31) U/L Alkaline Phosphatase 80 (39-117) U/L Troponin I High Sens (<3.5-17.0) ng/L Total Protein 7.1 (6.5-8.0) g/dL Albumin 3.7 (3.5-5.0) g/dL COVID-19 (ROB) (Negative) COVID-19 Clin Com Influenza Type A (NAOMI) (Negative) Influenza Type B (NAOMI) (Negative) Influenza A & B Note 09/14/22 09/14/22 09/14/22 Range/Units 19:32 19:32 19:32 WBC (4.8-10.8) X10*3/uL RBC (4.20-5.50) X10*6/uL Hgb (12.0-16.0) g/dl Hct (37.0-47.0) % MCV (80.0-98.0) fL MCH (27.0-33.0) pg MCHC (31.0-35.0) g/dl RDW (11.0-16.0) % Plt Count (160-400) X10*3/uL MPV (9.4-12.3) fL Immature Gran % (Auto) (0.0-0.4) % Neut % (Auto) (45-73) % Lymph % (Auto) (20-40) % Duchesne % (Auto) (2-11) % Eos % (Auto) (0-4) % Baso % (Auto) (0-2) % Lymph # (Auto) (1.2-4.9) X10*3/uL Duchesne # (Auto) (0.1-1.2) X10*3/uL Eos # (Auto) (0.0-0.4) X10*3/uL Baso # (Auto) (0.0-0.2) X10*3/uL Abs Immat Gran (auto) (0.00-0.03) X10*3/uL Absolute Neuts (auto) (2.0-8.3) x10*3/uL Absolute Nucleated RBC (0.0-0.012) X10*3/uL Nucleated RBC % (auto) (0.0-0.2) /100WBC PT (10.0-13.1) SEC INR (0.9-1.1) Sodium (135-145) mmol/L Potassium (3.3-5.1) mmol/L Chloride (96-108) mmol/L Carbon Dioxide (22-29) mmol/L Anion Gap (12-20) BUN (9-16) mg/dL Creatinine (0.5-1.4) mg/dL Estim Creat Clear Calc Estimated GFR Random Glucose (60-115) mg/dL Calcium (8.4-10.2) mg/dL Total Bilirubin (0.0-1.0) mg/dL AST (5-31) U/L ALT (0-31) U/L Alkaline Phosphatase (39-117) U/L Troponin I High Sens < 3.5 (<3.5-17.0) ng/L Total Protein (6.5-8.0) g/dL Albumin (3.5-5.0) g/dL COVID-19 (ROB) Negative (Negative) COVID-19 Clin Com See Note Influenza Type A (NAOMI) Negative (Negative) Influenza Type B (NAOMI) Negative (Negative) Influenza A & B Note See Note Independent Interpretation I performed an independent interpretation of an: EKG Interpretation: My independent interpretation of the patient's 12 EKG done at 2013 is as follows: Normal sinus rhythm rate of 84, normal NV interval, QRS duration QTC interval, no ST segment elevation, no ST segment depression, no PACs, no PVCs. This is a normal EKG. My independent review the patient's two view chest x-ray is as follows: No acute disease, no focal pneumonia/infiltrates noted Radiology Impression Discussion of test interpretation with radiology: I have reviewed the radiologist's reading. Radiologist Impression: XR chest 1V IMPRESSION: Unremarkable examination. Dictated By:Adam Solo MDSigned By:<Electronically signed by Adam Solo MD in [place]>09/14/222002 Discharge Plan Discharge Clinical Impression: Bronchitis Asthma exacerbation Qualifiers: Asthma severity: moderate Asthma persistence: unspecified Qualified Code(s): J45.901 - Unspecified asthma with (acute) exacerbation Patient Disposition: Home, Self-Care Instructions: Acute Bronchitis (ED) Additional Instructions: Your blood work was normal. Your COVID-19 and influenza tests were negative. Your EKG was unremarkable. Your chest x-ray revealed no pneumonia. Because your cough is productive in you have some blood in the sputum I am going to treat you for a bacterial bronchitis with antibiotics. Take doxycycline 100 mg, 1 pill every 12 hours for 7 days Use the albuterol inhaler with the spacer, 2 puffs 4 times a day for the next 4- 5 days to try to improve your chest tightness, shortness of breath and cough Take prednisone 20 mg pills, 2 pills once a day for 5 days. While you are taking prednisone, do not take any NSAIDs (Motrin, Advil, ibuprofen, Aleve, naproxen). Follow-up with your doctor in 2 days. Please return to the emergency department if your symptoms get worse or if you develop any symptoms that are concerning to you. Prescriptions: New prednisone 20 mg tablet 40 mg PO DAILY 5 Days Qty: 10 0RF doxycycline hyclate 100 mg tablet 100 mg PO Q12H 7 Days Qty: 14 0RF No Action dexamethasone 4 mg tablet 4 mg PO BID 30 Days Qty: 60 0RF ibuprofen 800 mg tablet 800 mg PO Q12H 30 Days Qty: 60 1RF pantoprazole 20 mg tablet,delayed release (DR/EC) 20 mg PO DAILY Qty: 30 6RF Linzess 145 mcg capsule 145 mcg PO QAM Qty: 30 4RF amoxicillin-pot clavulanate [Augmentin] 875-125 mg tablet 1 tab PO BID Qty: 14 0RF pantoprazole [Protonix] 40 mg tablet,delayed release (DR/EC) 40 mg PO DAILY 14 Days Qty: 14 0RF potassium chloride 20 mEq packet 20 meq PO DAILY Qty: 4 0RF atenolol 25 mg tablet 25 mg PO DAILY lamotrigine 200 mg tablet 200 mg PO DAILY verapamil 120 mg tablet 120 mg PO DAILY venlafaxine 150 mg capsule,extended release 24hr 150 mg PO DAILY zolpidem 10 mg tablet 10 mg PO BEDTIME PRN hydrocortisone [Proctosol HC] 2.5 % cream with perineal applicator 1 appl NV BID PRN (Reason: hemorrhoids) 30 Days Qty: 30 6RF quetiapine [Seroquel] 50 mg tablet 50 mg PO DAILY paroxetine HCl 30 mg tablet 30 mg PO DAILY simethicone 180 mg capsule 180 mg PO TIDWMEAL 30 Days Qty: 90 3RF Rx Instructions: after meals bisacodyl [Dulcolax (bisacodyl)] 5 mg tablet,delayed release (DR/EC) 10 mg PO BEDTIME docusate sodium [Colace] 100 mg capsule 100 mg PO BID Qty: 60 3RF Belbuca 600 mcg film 600 mcg buccal Q12H 30 Days Qty: 60 0RF Rx Instructions: Control of chronic pain.
[2022-09-14] MEDS: predniSONE 20 MG TABLET 40 MG PO (21:29)
[2022-09-14] MEDS: Doxycycline Monohydrate 100 MG CAPSULE PO (21:29)
== END 2022-09-14 21:37 | disposition home or self-care (01) ==
PROVIDERS: Emergency Provider Emergency Medicine Emergency Medical Services; PCP Internal Medicine
DX: J40 Bronchitis, not specified as acute or chronic (principal); R07.89 Other chest pain; R06.02 Shortness of breath; R05.9 Cough, unspecified; Z20.822 Contact with and (suspected) exposure to COVID-19; Z20.828 Contact with and (suspected) exposure to other viral communicable diseases; Z79.899 Other long term (current) drug therapy
CPT/HCPCS: 36415; 71045; 80053; 84484; 85025; 85610; 87502; 87635; 93005; 99284

== ENCOUNTER 2023-04-22 16:36 | Outpatient (REF) | payer MEDICAID, SELFPAY | END 2023-04-22 16:37 | disposition home or self-care (01) | LOC: HO.XRAY 16:36 | PROVIDERS: PCP Internal Medicine; Visit Provider Internal Medicine | DX: M25.562 Pain in left knee (principal) | CPT/HCPCS: 73560 ==

== ENCOUNTER 2023-05-25 13:00 | Outpatient (RCR) | payer MEDICAID, SELFPAY | END 2024-05-16 13:22 | disposition home or self-care (01) | LOC: HO.PT 13:00 | PROVIDERS: PCP Internal Medicine; Visit Provider Internal Medicine | DX: M25.562 Pain in left knee (principal) | CPT/HCPCS: 97110; 97116; 97162 ==

== ENCOUNTER 2023-10-05 11:31 | Outpatient (REF) | payer MEDICAID, SELFPAY ==
[2023-10-05 11:53] LABS: MANUAL DIFF FLAG NO
[2023-10-05 12:26] LABS: Basophils Percent Auto 0.4 % (0-2); Eosinophils Absolute Auto 0.3 X10*3/uL (0.0-0.4); Eosinophils Percent Auto 2.5 % (0-4); Hematocrit 41.7 % (37.0-47.0); Hemoglobin 14.4 g/dl (12.0-16.0); Imm Gran Abs Auto 0.04 X10*3/uL (0.00-0.03); Imm Gran Pct Auto 0.4 % (0.0-0.4); Lymphocytes Absolute Auto 2.7 X10*3/uL (1.2-4.9); Mean Corpuscular HGB Conc 34.5 g/dl (31.0-35.0); Mean Corpuscular Hemoglobin 30.3 pg (27.0-33.0); Mean Corpuscular Volume 87.6 fL (80.0-98.0); Mean Platelet Volume 9.9 fL (9.4-12.3); Monocytes Absolute Auto 0.4 X10*3/uL (0.1-1.2); Monocytes Percent Auto 3.9 % (2-11); Neutrophils Absolute Auto 7.8 x10*3/uL (2.0-8.3); Neutrophils Percent Auto 68.8 % (45-73); Platelet Count 349 X10*3/uL (160-400); Red Blood Count 4.76 X10*6/uL (4.20-5.50); Red Cell Distribution Width 13.7 % (11.0-16.0); White Blood Count 11.3 X10*3/uL (4.8-10.8)
[2023-10-05 12:31] LABS: UPreg QC Valid YES; Urine Pregnancy NEGATIVE (NEGATIVE)
[2023-10-05 12:46] LABS: Lithium < 0.10 mmol/L (0.60-1.20)
[2023-10-05 13:00] LABS: Alanine Aminotransferase 21 U/L (0-31); Albumin Level 3.8 g/dL (3.5-5.0); Alkaline Phosphatase 81 U/L (39-117); Anion Gap 12 (12-20); Aspartate Amino Transferase 16 U/L (5-31); Bilirubin Total 0.3 mg/dL (0.0-1.0); Blood Urea Nitrogen 7 mg/dL (9-16); Calcium 9.1 mg/dL (8.4-10.2); Carbon Dioxide 25 mmol/L (22-29); Chloride 107 mmol/L (96-108); Cholesterol 146 mg/dL (<200); Estimated Glomerular Filt Rate > 60; Glucose Random 126 mg/dL (60-115); HDL Cholesterol 32 mg/dL (>40); LDL Cholesterol Calculated 87 mg/dL (<100); Potassium 3.7 mmol/L (3.3-5.1); Sodium 140 mmol/L (135-145); Total Protein 7.6 g/dL (6.5-8.0); Triglycerides 138 mg/dL (<150)
[2023-10-05 13:15] LABS: Thyroid Stimulating Hormone 0.73 uIU/mL (0.32-4.0)
== END 2023-10-05 11:32 | disposition home or self-care (01) ==
LOC: HO.LAB 11:31
PROVIDERS: PCP Internal Medicine; Visit Provider Registered Nurse
DX: Z79.899 Other long term (current) drug therapy (principal)
CPT/HCPCS: 36415; 80053; 80061; 80178; 81025; 84443; 85025

== ENCOUNTER 2024-06-09 10:02 | Emergency (ER) | payer MEDICAID, SELFPAY ==
--- NOTE | ~2024-06-09 | US_ITS ---
EXAMINATION: US ABDOMEN LIMITED CLINICAL INFORMATION: Right upper quadrant pain. COMPARISON: Ultrasound dated December 29, 2020 TECHNIQUE: Real-time imaging of the right upper quadrant abdominal viscera using grayscale and color Doppler technique. FINDINGS: PANCREAS: Fluid collection. LIVER: Liver measures 18 cm. Increased echotexture. No solid or cystic lesion. No intrahepatic biliary ductal dilatation. GALLBLADDER: Fluid-filled. No pericholecystic fluid collection or gallbladder wall thickening. COMMON BILE DUCT: 3 mm. RIGHT KIDNEY: 13 cm. Normal echotexture. No solid or cystic lesion. No hydronephrosis. Normal flow on color Doppler interrogation of the renal hilum. FREE FLUID: None. US/US abdomen limited IMPRESSION: Hepatomegaly and steatosis. No cholelithiasis. No hydronephrosis, right kidney. No ascites. Electronically signed by: Hong Roach MD 06/09/2024 01:16 PM [facility]
--- NOTE | ~2024-06-09 | XR_ITS ---
EXAMINATION: XR CHEST CLINICAL INFORMATION: pain COMPARISON: X-ray dated September 14, 2022 TECHNIQUE: Frontal view of the chest was obtained. FINDINGS: No consolidation pleural effusion or pneumothorax. No hyperinflation. Cardiomediastinal silhouette is normal. Multilevel thoracic spondylosis, mild. Patient's large body habitus. XR/XR chest 1V IMPRESSION: No acute airspace disease. Electronically signed by: Hong Roach MD 06/09/2024 11:23 AM DB
--- NOTE | 2024-06-09 10:05 | ECG_ITS ---
Test Reason : CP Blood Pressure : / mmHG Vent. Rate : 081 BPM Atrial Rate : 081 BPM P-R Int : 136 ms QRS Dur : 076 ms QT Int : 386 ms P-R-T Axes : 011 -08 019 degrees QTc Int : 448 ms Normal sinus rhythm Nonspecific T wave abnormality Abnormal ECG When compared with ECG of 14-SEP-2022 20:14, Nonspecific T wave abnormality, worse in Anterolateral leads Referred By: Generic ED Physician Electronically Signed By:LYN FELTON MD
[2024-06-09 10:13] VITALS: BP 144/77; PULSE 81; RESP 16; TEMP 36.4; O2SAT 96; BMI 40.8
--- NOTE | 2024-06-09 10:25 | PC.NURSE ---
patient a&ox3, lungs clear throughout- rr equal/non labored- pt speaking in full sentences, pt states she has 6/10 mid sternal chest pain radiating across her chest through her back. gambling monitor applied- nsr on monitor, ekg previously performed, pt states she has associated nausea with her chest pain. call [facility] within reach, tech to draw labs, will continue to monitor
--- NOTE | 2024-06-09 10:36 | ED_ITS ---
HPI - Chest Pain General Chief Complaint: Chest Pain Stated Complaint: Chest pain, abd pain Time Seen by Provider: 06/09/24 10:21 Source: patient and old records reviewed Mode of arrival: ambulatory Limitations: no limitations History of Present Illness ED Provider: STACEY WOODS narrative: 48 yo female with PMH of GERD, arthritis, constipation here with c/o 2 to 3 days of upper abdominal pain n/v x 1, some diarrhea - she denies expoxures or sick contacts/travel. She notes it feels like heat. She also reports sharp central chest pain that feels like it takes her breath as well - she is on estrogen replacement therapy. She denies URI symptoms, fevers, GI bleed symptoms. Only had prior c section. She is not taking antacids at home MD complaint: chest pain (epigastric pain) Onset (ago): day(s) (2 to 3) Timing of current episode: constant Prior episodes: No Onset: during rest Pain location: substernal and epigastric Pain radiation: back Severity: moderate Quality: sharp and burning Relieving factors: nothing Exacerbating factors: eating Associated symptoms: nausea, vomiting and dyspnea Treatment prior to arrival: none Related Data Home Medications ?Medication ?Instructions ?Recorded ?Confirmed atenolol 25 mg tablet 25 mg PO DAILY 04/21/20 11/13/20 lamotrigine 200 mg tablet 200 mg PO DAILY 04/21/20 11/13/20 venlafaxine 150 mg 150 mg PO DAILY 04/21/20 05/29/20 capsule,extended release 24 hr verapamil 120 mg tablet 120 mg PO DAILY 04/21/20 11/13/20 zolpidem 10 mg tablet 10 mg PO BEDTIME PRN 04/21/20 11/13/20 bisacodyl 5 mg tablet,delayed 10 mg PO BEDTIME 11/13/20 11/13/20 release (Dulcolax (bisacodyl)) paroxetine HCl 30 mg tablet 30 mg PO DAILY 11/13/20 11/13/20 quetiapine 50 mg tablet (Seroquel) 50 mg PO DAILY 11/13/20 11/13/20 Previous Rx's ?Medication ?Instructions ?Recorded hydrocortisone 2.5 % topical cream 1 appl SD BID PRN hemorrhoids 30 10/09/20 with perineal applicator days #30 grams (Proctosol HC) dexamethasone 4 mg tablet 4 mg PO BID 30 days #60 tabs 10/16/20 ibuprofen 800 mg tablet 800 mg PO Q12H 30 days #60 tabs 11/07/20 docusate sodium 100 mg capsule 100 mg PO BID #60 caps 11/13/20 (Colace) simethicone 180 mg capsule 180 mg PO TIDWMEAL 30 days #90 caps 11/13/20 buprenorphine HCl 600 mcg buccal 600 mcg buccal Q12H 30 days #60 ea 11/15/20 film (Belbuca) amoxicillin 875 mg-potassium 1 tab PO BID #14 tabs 11/23/20 clavulanate 125 mg tablet (Augmentin) pantoprazole 20 mg tablet,delayed 20 mg PO DAILY #30 tabs 12/04/20 release pantoprazole 40 mg tablet,delayed 40 mg PO DAILY 14 days #14 tabs 12/30/20 release (Protonix) potassium chloride 20 mEq oral 20 meq PO DAILY #4 ea 01/09/21 packet linaclotide 145 mcg capsule 145 mcg PO QAM #30 caps 01/21/22 (Linzess) doxycycline hyclate 100 mg tablet 100 mg PO Q12H 7 days #14 tabs 09/14/22 prednisone 20 mg tablet 40 mg (2 x 20 mg) PO DAILY 5 days 09/14/22 #10 tabs omeprazole 40 mg capsule,delayed 40 mg PO DAILY #14 caps 06/09/24 release ondansetron 4 mg disintegrating 4 mg PO Q8H PRN nausea and 06/09/24 tablet vomiting #20 tabs Allergies Allergy/AdvReac Type Severity Reaction Status Date / Time ENVIRONMENTAL Allergy Intermediate HAYFEVER Uncoded 06/09/24 10:14 SYMPTOMS Review of Systems 2 Review of Systems: Constitutional : No Weight loss, No Fever, No Chills ENT/Mouth : No sore throat, No Rhinorrhea Eyes: No Eye Pain, No Swelling Cardiovascular : pos Chest Pain, pos SOB, no Dyspnea on Exertion, No Orthopnea, No Edema, No Palpitations Respiratory : No Cough, No Sputum Gastrointestinal : pos Nausea, pos Vomiting, No Diarrhea, pos abdominal Pain, No Hematochezia, No Melena Genitourinary : No Dysuria, No Urinary Frequency Musculoskeletal : No joint pain, No Myalgias, No Joint Swelling Skin : No Skin Lesions, No rash Neuro : No Weakness, No Numbness, No Dizziness, No Headache Psych : No Anxiety/Panic, No Depression All other systems reviewed and are negative [facility] Past Medical History Attestation statement: The following information was validated with the patient. Source: old records reviewed Medical History Thoracic spondylosis Lumbar spondylosis Left elbow pain Left elbow pain Degenerative arthritis of thoracic spine Cervical spondylosis Low back pain Cervicalgia Surgical History History of esophagogastroduodenoscopy (EGD) Family History Family History Brother Leukemia Mother HTN (hypertension) Father Myocardial infarct Social History Social History Household Members Other:: FOUR GROWN SONS LIVES ALONE Alcohol intake: never Smoked in Last 30 Days: No Use of substances other than those prescribed or required for medical reasons: Yes Substance Use Type: Marijuana Substance Use Frequency: Occasionally Advance Directives: No Advance Directives Information Provided: Yes Patient : No Physical Exam 2 Vital Signs: Vital Signs: Last Vital Signs Temp 97.6 F 06/09/24 10:13 Pulse 72 06/09/24 13:26 Resp 14 06/09/24 13:26 BP 125/79 06/09/24 13:26 Pulse Ox 97 06/09/24 13:26 O2 Del Method Room Air 06/09/24 13:26 BMI result Body Mass Index 40.8 Appearance: Alert. Oriented X3. No acute distress. Eyes: Pupils equal, round and reactive to light. ENT: Pharynx normal. Neck: Normal inspection. Neck supple. CVS: Normal heart rate and rhythm. Pulses normal. Respiratory: No respiratory distress. Breath sounds normal. Abdomen: Soft and mild epigastric ttp neg hill's sign Skin: Skin warm and dry. Normal skin color. Normal skin turgor. Extremities: No lower extremity edema. Neuro: Oriented X 3. No motor deficit. No sensory deficit. Medications Administered Discontinued Medications Generic Name Dose Route Start Last Admin Trade Name Freq PRN Reason Stop Dose Admin Al Hydroxide/Mg Hydroxide 15 ml 06/09/24 10:43 06/09/24 11:07 Magnesium Hydrox/Alum Hydrox 30 Ml Oral.Susp PO 06/09/24 10:44 15 ml ONCE ONE Administration Lidocaine HCl 15 ml 06/09/24 10:43 06/09/24 11:07 Lidocaine Hcl Viscous 2 % 15 Ml Solution MUCOUS MEM 06/09/24 10:44 15 ml ONCE ONE Administration Morphine Sulfate 4 mg 06/09/24 10:43 06/09/24 11:15 Morphine Sulfate 4 Mg/Ml Cartridge IVPUSH 06/09/24 10:44 4 mg ONCE ONE Administration Protocol Ondansetron HCl 4 mg 06/09/24 10:43 06/09/24 11:15 Ondansetron Hcl 4 Mg/2 Ml Vial IVPUSH 06/09/24 10:44 4 mg ONCE ONE Administration Medical Decision Making Medical Decision Making [facility] Narrative: 48 yo female with PMH of GERD, arthritis, constipation here with c/o 2 to 3 days of epigastric burning and sharp chest pain she did have n/v x 1 and dyspnea. She is on estrogen replacement therapy at this time basic labs, CXR, US for GB, ddimer and trop x 1, GI cocktail ordered along with IV pain medications. Her abdomen is not acute. Possible atypical chest pain, VTE, pancreatitis, gastritis, GERD, biliary colic Differential Diagnosis Differential Diagnoses: The differential diagnosis associated with the presentation includes atypical chest pain, VTE, pancreatitis, gastritis, GERD, biliary colic Admission/Observation Consideration of admission/observation: Escalation of care including admission/observation considered feels better able to tolerate PO labs, CXR, US normal Lab Data [facility] Lab Attestation statement: I reviewed the patient's lab results. 06/09/24 11:14 06/09/24 11:14 Labs: Lab Results 06/09/24 Range/Units 11:14 WBC 11.3 H (4.8-10.8) X10*3/uL RBC 4.78 (4.20-5.50) X10*6/uL Hgb 14.3 (12.0-16.0) g/dl Hct 40.9 (37.0-47.0) % MCV 85.6 (80.0-98.0) fL MCH 29.9 (27.0-33.0) pg MCHC 35.0 (31.0-35.0) g/dl RDW 13.4 (11.0-16.0) % Plt Count 309 (160-400) X10*3/uL MPV 9.5 (9.4-12.3) fL Immature Gran % (Auto) 0.4 (0.0-0.4) % Neut % (Auto) 68.2 (45-73) % Lymph % (Auto) 24.9 (20-40) % [place] % (Auto) 4.6 (2-11) % Eos % (Auto) 1.5 (0-4) % Baso % (Auto) 0.4 (0-2) % Lymph # (Auto) 2.8 (1.2-4.9) X10*3/uL [place] # (Auto) 0.5 (0.1-1.2) X10*3/uL Eos # (Auto) 0.2 (0.0-0.4) X10*3/uL Baso # (Auto) 0.1 (0.0-0.2) X10*3/uL Abs Immat Gran (auto) 0.05 H (0.00-0.03) X10*3/uL Absolute Neuts (auto) 7.7 (2.0-8.3) x10*3/uL Absolute Nucleated RBC 0.000 (0.0-0.012) X10*3/uL Nucleated RBC % (auto) 0.0 (0.0-0.2) /100WBC Sodium 139 (135-145) mmol/L Potassium 3.4 (3.3-5.1) mmol/L Chloride 107 (96-108) mmol/L Carbon Dioxide 24 (22-29) mmol/L Anion Gap 11 L (12-20) BUN 8 L (9-16) mg/dL Creatinine 0.77 (0.5-1.4) mg/dL Estim Creat Clear Calc 97.2 Estimated GFR > 60 Random Glucose 104 (60-115) mg/dL Calcium 9.3 (8.4-10.2) mg/dL Magnesium 1.9 (1.6-2.6) mg/dL Total Bilirubin 0.5 (0.0-1.0) mg/dL Direct Bilirubin 0.2 (0.0-0.5) mg/dL AST 28 (5-31) U/L ALT 22 (0-31) U/L Alkaline Phosphatase 79 (39-117) U/L Troponin I High Sens < 2.7 (<3.5-17.0) ng/L Total Protein 7.5 (6.5-8.0) g/dL Albumin 4.0 (3.5-5.0) g/dL Lipase 18 (8-78) U/L Independent Interpretation I performed an independent interpretation of an: EKG, Plain X-Ray (normal) and Ultrasound (no biliary colic) Interpretation: Rate: 81 Rhythm: NSR [place]: left Normal P waves. Normal FRANCISCO. Normal QRS complex. ST T wave : nonspecific ST T wave changes ant leads no ZITA qTC: 448 prior studies: no change from priors The study has been interpreted contemporaneously by me. . Radiology Impression Discussion of test interpretation with radiology: I have reviewed the radiologist's reading. Independent Historian Clinical information obtained from an independent historian. History obtained from or confirmed by: Spouse External Record Review External record reviewed: Outpatient record Prescription Management I considered prescription management with: Other Discharge Plan Discharge Clinical Impression: Atypical chest pain Gastritis Qualifiers: Gastritis type: unspecified gastritis Chronicity: acute Gastritis bleeding: w ithout bleeding Qualified Code(s): K29.00 - Acute gastritis without bleeding Patient Disposition: Home, Self-Care Instructions: Chest Pain (ED), Gastritis (ED) Additional Instructions: labs and EKG reassuring US no stones chest xray normal at this time return for any worsening symptoms or concerns eat a bland diet US/US abdomen limited IMPRESSION: Hepatomegaly and steatosis. No cholelithiasis. No hydronephrosis, right kidney. No ascites. Prescriptions: New omeprazole 40 mg capsule,delayed release(DR/EC) 40 mg PO DAILY Qty: 14 0RF ondansetron 4 mg tablet,disintegrating 4 mg PO Q8H PRN (Reason: nausea and vomiting) Qty: 20 0RF No Action dexamethasone 4 mg tablet 4 mg PO BID 30 Days Qty: 60 0RF ibuprofen 800 mg tablet 800 mg PO Q12H 30 Days Qty: 60 1RF pantoprazole 20 mg tablet,delayed release (DR/EC) 20 mg PO DAILY Qty: 30 6RF Linzess 145 mcg capsule 145 mcg PO QAM Qty: 30 4RF amoxicillin-pot clavulanate [Augmentin] 875-125 mg tablet 1 tab PO BID Qty: 14 0RF pantoprazole [Protonix] 40 mg tablet,delayed release (DR/EC) 40 mg PO DAILY 14 Days Qty: 14 0RF potassium chloride 20 mEq packet 20 meq PO DAILY Qty: 4 0RF prednisone 20 mg tablet 40 mg PO DAILY 5 Days Qty: 10 0RF doxycycline hyclate 100 mg tablet 100 mg PO Q12H 7 Days Qty: 14 0RF atenolol 25 mg tablet 25 mg PO DAILY lamotrigine 200 mg tablet 200 mg PO DAILY verapamil 120 mg tablet 120 mg PO DAILY venlafaxine 150 mg capsule,extended release 24hr 150 mg PO DAILY zolpidem 10 mg tablet 10 mg PO BEDTIME PRN hydrocortisone [Proctosol HC] 2.5 % cream with perineal applicator 1 appl SD BID PRN (Reason: hemorrhoids) 30 Days Qty: 30 6RF quetiapine [Seroquel] 50 mg tablet 50 mg PO DAILY paroxetine HCl 30 mg tablet 30 mg PO DAILY simethicone 180 mg capsule 180 mg PO TIDWMEAL 30 Days Qty: 90 3RF Rx Instructions: after meals bisacodyl [Dulcolax (bisacodyl)] 5 mg tablet,delayed release (DR/EC) 10 mg PO BEDTIME docusate sodium [Colace] 100 mg capsule 100 mg PO BID Qty: 60 3RF Belbuca 600 mcg film 600 mcg buccal Q12H 30 Days Qty: 60 0RF Rx Instructions: Control of chronic pain. Print Language: Jamaican
[2024-06-09] MEDS: Lidocaine HCl Viscous 2 % 15 ML SOLUTION MUCOUS MEM (11:07)
[2024-06-09] MEDS: Magnesium Hydrox/Alum Hydrox 30 ML ORAL.SUSP 15 ML PO (11:07)
[2024-06-09] MEDS: ondansetron HCL 4 MG/2 ML VIAL IVPUSH (11:15)
[2024-06-09] MEDS: Morphine Sulfate 4 MG/ML CARTRIDGE IVPUSH (11:15)
--- NOTE | 2024-06-09 11:17 | PC.NURSE ---
iv inserted, labs drawn, pt medicated for 6/10 midsternal chest pain, family at bedside, call camara within reach, pt awaiting US
[2024-06-09 11:21] LABS: MANUAL DIFF FLAG NO
[2024-06-09 11:24] LABS: Basophils Absolute Auto 0.1 X10*3/uL (0.0-0.2); Basophils Percent Auto 0.4 % (0-2); Eosinophils Absolute Auto 0.2 X10*3/uL (0.0-0.4); Eosinophils Percent Auto 1.5 % (0-4); Hematocrit 40.9 % (37.0-47.0); Hemoglobin 14.3 g/dl (12.0-16.0); Imm Gran Abs Auto 0.05 X10*3/uL (0.00-0.03); Imm Gran Pct Auto 0.4 % (0.0-0.4); Lymphocytes Absolute Auto 2.8 X10*3/uL (1.2-4.9); Lymphocytes Percent Auto 24.9 % (20-40); Mean Corpuscular Hemoglobin 29.9 pg (27.0-33.0); Mean Corpuscular Volume 85.6 fL (80.0-98.0); Mean Platelet Volume 9.5 fL (9.4-12.3); Monocytes Absolute Auto 0.5 X10*3/uL (0.1-1.2); Monocytes Percent Auto 4.6 % (2-11); Neutrophils Absolute Auto 7.7 x10*3/uL (2.0-8.3); Neutrophils Percent Auto 68.2 % (45-73); Platelet Count 309 X10*3/uL (160-400); Red Blood Count 4.78 X10*6/uL (4.20-5.50); Red Cell Distribution Width 13.4 % (11.0-16.0); White Blood Count 11.3 X10*3/uL (4.8-10.8)
[2024-06-09 11:44] LABS: Alanine Aminotransferase 22 U/L (0-31); Anion Gap 11 (12-20); Aspartate Amino Transferase 28 U/L (5-31); Bilirubin Direct 0.2 mg/dL (0.0-0.5); Bilirubin Total 0.5 mg/dL (0.0-1.0); Blood Urea Nitrogen 8 mg/dL (9-16); Calcium 9.3 mg/dL (8.4-10.2); Carbon Dioxide 24 mmol/L (22-29); Chloride 107 mmol/L (96-108); Creatinine Clr Calc Pharmacy 97.2; Estimated Glomerular Filt Rate > 60; Glucose Random 104 mg/dL (60-115); Lipase 18 U/L (8-78); Magnesium 1.9 mg/dL (1.6-2.6); Potassium 3.4 mmol/L (3.3-5.1); Sodium 139 mmol/L (135-145); Total Protein 7.5 g/dL (6.5-8.0)
[2024-06-09 11:47] LABS: Troponin-I High Sensitivity < 2.7 ng/L (<3.5-17.0)
[2024-06-09 12:00] LABS: Alkaline Phosphatase 79 U/L (39-117)
[2024-06-09 13:26] VITALS: BP 125/79; PULSE 72; RESP 14; O2SAT 97
[2024-06-09 13:54] VITALS: BP 125/79; PULSE 72; RESP 14; TEMP 37.1; O2SAT 97
== END 2024-06-09 13:55 | disposition home or self-care (01) ==
PROVIDERS: Emergency Provider Emergency Medicine; PCP Internal Medicine
DX: R07.89 Other chest pain (principal); K29.00 Acute gastritis without bleeding; R10.9 Unspecified abdominal pain; Z79.899 Other long term (current) drug therapy
CPT/HCPCS: 36415; 71045; 76705; 80048; 80076; 83690; 83735; 84484; 85025; 93005; 96374; 96375; 99284; 99285; J2270; J2405

== ENCOUNTER → 2024-06-09 10:05 | Outpatient (BNV) | payer MEDICAID, SELFPAY | PROVIDERS: Emergency Provider Emergency Medicine; PCP Internal Medicine; Visit Provider Internal Medicine Cardiovascular Disease | DX: R07.9 Chest pain, unspecified (principal); R94.31 Abnormal electrocardiogram [ECG] [EKG] | CPT/HCPCS: 93010 ==

== ENCOUNTER → 2024-06-09 10:43 | Outpatient (BNV) | payer MEDICAID, SELFPAY | PROVIDERS: Emergency Provider Emergency Medicine; PCP Internal Medicine; Visit Provider Radiology Diagnostic Radiology | DX: R10.9 Unspecified abdominal pain (principal); R07.9 Chest pain, unspecified | CPT/HCPCS: 71045; 76705 ==

== ENCOUNTER 2024-06-24 16:16 | Outpatient (REF) | payer MEDICAID, SELFPAY ==
[2024-06-24 18:04] LABS: Cholesterol 162 mg/dL (<200); HDL Cholesterol 32 mg/dL (>40); LDL Cholesterol Calculated 105 mg/dL (<100); Triglycerides 128 mg/dL (<150)
== END 2024-06-24 16:17 | disposition home or self-care (01) ==
LOC: HO.CHCLDS 16:16
PROVIDERS: Visit Provider Internal Medicine
DX: I10 Essential (primary) hypertension (principal); E11.9 Type 2 diabetes mellitus without complications
CPT/HCPCS: 36415; 80061

== ENCOUNTER 2024-09-13 14:09 | Outpatient (REF) | payer MEDICAID, SELFPAY ==
--- OUTSIDE RECORDS SUMMARY | 2024-09-13 17:43 | XMS_ITS | Encounter Summary ---
Author Organization [employer] Address [address] [place] [address] Care Team Providers Care Oil And Gas Recruiter Name Role Phone Woodrow Montalvo MD Primary Care Provider [phone] Reason for Visit * Reason Onset Date Comments Appointment Request 02/16/2024 Encounter Details Date Type Department Care Team ([facility] st Contact Info) Description 02/16/2024 Telephone [facility] MED[facility]INE [address] [place] [address] Woodrow Montalvo MD [address] [place], [place] [phone] Appointment Request Social History Tobacco Use Types Packs/Day Years Used Date Smoking Tobacco: Never Passive Smoke Exposure: Never Smokeless Tobacco: Never Alcohol Use Standard Drinks/Week Comments Not Currently 0 (1 standard drink = 0.6 oz pur e alcohol) Depression Answer Date Recorded Patient Health Questionnaire-9 Score 14 10/16/2022 Housing Stability Answer Date Recorded What is your housing situation today? I have vishnu saeed 05/04/[address] you li ve. Do you have problems with any of the following? None of the above 05/04/2023 Food Insecurity Answer Date Recorded Within the past 12 months, y ou worried that your food would run out before you got money to buy more: Sometimes True 2022 Within the past 12 months,th e food you bought just didn't last and you didn't have enough money to get more: Sometimes True 05/04/2023 Transportation Answer Date Recorded In the past 12 months, has l ack of transportation kept you from medical appts, meetings, work or from getting things needed for daily living? No 05/04/2023 Utilities Answer Date Recorded In the past 12 months, has t he electric, gas, oil or water company threatened to shut off services in your home? No 05/04/2023 Depression Answer Date Recorded Patient Health Questionnaire-2 Score 6 10/16/2022 Comments Unknown Sex and Gender Information Value Date Recorded Sex Assigned at Female 05/19/2022 10:17 AM EDT Legal Sex Female 10:17 AM EDT Gender Identity Female 05/19/2022 10:17 AM EDT Sexual Orientation Choose not to disclose 2021 10:17 AM EDT documented as of this encounter Miscellaneous Notes * Telephone Encounter - Yariel Denton - 02/16/2024 8:05 AM EDT Tc from patient calling to cancel PAP appt for 02/15 due to lack of transportation would like to reschedule but for a later time documented in this encounter Plan of Treatment Upcoming Encounters Date Type Department Care Team (Late st Contact Info) Description 09/22/2024 2:00 PM EST Clinical Support [facility] MED & PEDS [address] [place] [address] Stephanie Ling, MARCIO [address] [place] [address] 09/23/2024 1:00 PM EST Office Visit [facility] ADULT DENTAL [address] [place] [address] Geeta Jarquin [address] [place] [address] 12/09/2024 2:30 PM EDT Office Visit [facility] [address] [place] [address] Woodrow Montalvo MD [address] [place] [address] documented as of this encounter Visit Diagnoses Not on filedocumented in this encounter Additional Health Concerns Assessment Noted Time PHQ-9 Depression Total Score: 14 023 9:16 AM EDT documented as of this encounter Care Teams Oil And Gas Recruiter Relationship Specialty Start Date End Date Woodrow Montalvo MD [address] [place] [id number] PCP - General Internal Medicine 01/01/18 documented as of this encounter
--- OUTSIDE RECORDS SUMMARY | 2024-09-13 17:43 | XMS_ITS | Encounter Summary ---
Author Organization [employer] Address [address] [place] [address] Care Team Providers Care Genomics Scientist Name Role Phone Woodrow Montalvo MD Primary Care Provider [phone] Reason for Visit * Reason Comments Med Refill Encounter Details Date Type Department Care Team ([facility] Contact Info) Description 06/18/[address] [facility] MED [facility] PEDS [address] [place], [place] [phone] Woodrow Montalvo MD [address] [place], [place] [phone] Chronic pain syndrome Social History Tobacco Use Types Packs/Day Years Used Date Smoking Tobacco: Former Cigarettes Passive Smoke Exposure: Past Smokeless Tobacco: Never Alcohol Use Standard Drinks/Week [...] Patient Health Questionnaire-2 Score 6 10/16/2022 Comments No Sex and Gender Information Value Date Recorded Sex Assigned at Female 05/19/2022 10:17 AM EDT Legal Sex Female 10:17 AM EDT Gender Identity Female 05/19/2022 10:17 AM EDT Sexual Orientation Choose not to disclose 2021 10:17 AM EDT documented as of this encounter Plan of Treatment Upcoming Encounters Date Type Department Care Team (Late st Contact Info) Description 09/22/2024 2:00 PM EST Clinical Support [facility] MED & PEDS [address] [place] [address] Stephanie Ling RN [address] [place] [address] 09/23/2024 1:00 PM EST Office Visit [facility] ADULT DENTAL [address] [place] [address] Mark Jarquinet [address] [place] [address] 12/09/2024 2:30 PM EDT Office Visit [facility] MED [facility] PEDS [address] [place] [address] Woodrow Montalvo MD [address] [place] [address] documented as of this encounter Visit Diagnoses Diagnosis Chronic pain syndrome documented in this encounter Additional Health Concerns Assessment Noted Time PHQ-9 Depression Total Score: 14 023 9:16 AM EDT documented as of this encounter Care Teams Genomics Scientist Relationship Specialty Start Date End Date Woodrow Montalvo MD [address] [place] [address] PCP - General Internal Medicine 01/01/18 documented as of this encounter
--- OUTSIDE RECORDS SUMMARY | 2024-09-13 17:43 | XMS_ITS | Encounter Summary ---
Author Organization [email or web address] Address [address] [place] [address] Care Team Providers Care Senior Telecommunications Consultant Name Role Phone Woodrow Montalvo MD Primary Care Provider [phone] Reason for Visit * Reason Onset Date Comments Med Refill 05/22/2023 Encounter Details Date Type Department Care Team ([facility] st Contact Info) Description 05/22/2023 Telephone [facility] MEDICINE [address] [place] [address] Woodrow Montalvo MD [address] [place], [place] [phone] Med Refill Social History Tobacco Use Types Packs/Day Years [...] encounter Miscellaneous Notes * Telephone Encounter - Chanelle Rothman - 05/22/2023 1:39 PM EDT Tc from pt requesting ,med refill on traMADol (Ultram) 50 MG tablet. Pt is also requesting r/s 05/15/2023 visit. documented in this encounter Plan of Treatment Upcoming Encounters Date Type Department Care Team (Late st Contact Info) Description 09/22/2024 2:00 PM EST Clinical Support [facility] MED & PEDS [address] [place] [address] Stephanie Ling RN [address] [place] [address] 09/23/2024 1:00 PM EST Office Visit [facility] ADULT DENTAL [address] [place] [address] Geeta Jarquin [address] [place] [address] 12/09/2024 2:30 PM EDT Office Visit [facility] MED & PEDS [address] [place] [address] Woodrow Montalvo MD [address] [place] [address] documented as of this encounter Visit Diagnoses Not on filedocumented in this encounter Additional Health Concerns Assessment Noted Time PHQ-9 Depression Total Score: 14 023 9:16 AM EDT documented as of this encounter Care Teams Senior Telecommunications Consultant Relationship Specialty Start Date End Date Woodrow Montalvo MD [address] [place] [phone] PCP - General Internal Medicine 01/01/18 documented as of this encounter
--- OUTSIDE RECORDS SUMMARY | 2024-09-13 17:43 | XMS_ITS | Encounter Summary ---
Author Organization [employer] Address [address] [place] [address] Care Team Providers Care Net Technical Architect Name Role Phone Woodrow Montalvo MD Primary Care Provider [phone] Encounter Details Date Type Department Care Team (Late Contact Info) Description 06/16/2022 Abstract [facility] MED & PEDS [address] [place] [address] Provider, MD Melissa Social History Tobacco Use Types Packs/Day Years Used Date Smoking Tobacco: Never Assessed Comments Unknown Sex and Gender Information Value Date Recorded Sex Assigned at Female 05/19/2022 10:17 AM EDT Legal Sex Female 10:17 AM EDT Gender Identity Female 05/19/2022 10:17 AM EDT Sexual Orientation Choose not to disclose 2021 10:17 AM EDT documented as of this encounter Last Filed Vital Signs Vital Sign Reading Time Taken Comments Blood Pressure 130/80 06/16/2022 2:07 PM EST Pulse 80 06/16/2022 2:07 PM EST Temperature - - Respiratory Rate - - Oxygen Saturation - - Inhaled Oxygen Concentration - - Weight 104 kg (228 lb 12.8 oz) 06/16/2022 2:07 P M EST Height 159 cm (5' 2.6 ) 06/16/2022 2:07 PM EST Body Mass Index 41.05 06/16/2022 2:07 PM EST documented in this encounter Plan of Treatment Upcoming Encounters Date Type Department Care Team (Late Contact Info) Description 09/22/2024 2:00 PM EST Clinical Support [facility] MED & PEDS [address] [place] [address] Stephanie Ling, MARCIO [address] [place] [address] 09/23/2024 1:00 PM EST Office Visit [facility] ADULT DENTAL [address] [place] [address] Geeta Jarquin [address] [place] [address] 12/09/2024 2:30 PM EDT Office Visit [facility] MED & PEDS [address] [place] [address] Woodrow Montalvo MD [address] [place] [address] documented as of this encounter Visit Diagnoses Not on filedocumented in this encounter Care Teams Net Technical Architect Relationship Specialty Start Date End Date Woodrow Montalvo MD [address] [place] [address] PCP - General Internal Medicine 01/01/18 documented as of this encounter
--- OUTSIDE RECORDS SUMMARY | 2024-09-13 17:43 | XMS_ITS | Encounter Summary ---
Author Organization [employer] Address [address] 7[address] [place] [address] Care Team Providers [facility] Office Supervisor Name Role Phone Woodrow Montalvo MD Primary Care Provider [phone] Reason for Visit * Reason Onset Date Comments Nurse Triage 05/19/2023 Encounter Details Date Type Department Care Team ([facility] st Contact Info) Description 05/19/2023 Telephone [facility] MEDICINE [address] [place] [address] Woodrow Montalvo MD [address] [place], [place] [phone] Nurse Triage Social History Tobacco Use Types Packs/Day Years [...] the past 12 months, has t he [employer], gas, oil or water [employer] threatened to shut off services in your [...] encounter Miscellaneous Notes * Telephone Encounter - Krystina Joiner RN - 05/19/2023 3:46 PM EDT Triage call with [employer] ID [id number] Pt reports abdominal pain started with in 48 hrs. Pt does have dx of gerd and constipation. Pt reports pain is located in left lower quadrant ovarian area. Last BM was yesterday without constipation.Pt has not had periods for over year now due to hysterectomy. Pt denies fever, vag discharge, urinary symptoms. Pt reports has had a fibroid in the past . Apt in [facility] 05/20/23 340pm Insurance is verified as active prior to booking. Pt agrees with disposition and home care reviewed. Protocol Used: Abdominal Pain - Female (Adult) Protocol-Based Disposition: See in Office or Video Visit Today or Tomorrow Positive Triage Question: * Mild pain (e.g., does not interfere with normal activities) and pain comes and goes (cramps) lasts > 48 hours (Exception: This same abdominal pain is a chronic symptom recurrent or ongoing AND present > 4 weeks.) * All higher-acuity triage questions were negative Care Advice Discussed: * Reassurance and Education - Stomach Pain * Rest * Drink Clear Fluids * Diet * Pass a Stool * Reasons To Call Back - Severe pain lasts over 1 hour - Constant pain lasts over 2 hours - Intermittent pains (e.g., comes and goes, cramps) lasts over 48 hours - You are - You become worse * Telephone Encounter - Chanelle Rothman - 05/19/2023 2:45 PM EDT Symptom: Abdominal Pain - Female - Not Outcome: Schedule an appointment to be seen within 24 hours Reason: Caller denied all higher acuity questions The caller accepted this outcome Gabonese speaker documented in this encounter Plan of Treatment Upcoming Encounters Date Type Department Care Team (Late st Contact Info) Description 09/22/2024 2:00 PM EST Clinical Support [facility] MED & PEDS [address] [place] [address] Stephanie Ling, MARCIO 505 [place] [address] 09/23/2024 1:00 PM EST Office Visit [facility] ADULT DENTAL [address] [place] [address] Raquel Jarquinmarissaet [address] [place] [address] 12/09/2024 2:30 PM EDT Office Visit [facility] MED & PEDS [address] [place] [address] Woodrow Montalvo MD [address] [place] [address] documented as of this encounter Visit Diagnoses Not on filedocumented in this encounter Additional Health Concerns Assessment Noted Time PHQ-9 Depression Total Score: 14 023 9:16 AM EDT documented as of this encounter Care Teams [facility] Office Supervisor Relationship Specialty Start Date End Date Woodrow Montalvo MD [address] [place] [address] PCP - General Internal Medicine 01/01/18 documented as of this encounter
--- OUTSIDE RECORDS SUMMARY | 2024-09-13 17:43 | XMS_ITS | Encounter Summary ---
Author Organization [employer] Address [address] [place] [address] Care Team Providers Care Watch Case Polisher Name Role Phone Woodrow Montalvo MD Primary Care Provider [phone] Encounter Details Date Type Department Care Team (Latest Contact Info) Description 09/13/2024 Travel Social History Tobacco Use Types Packs/Day Years Used Date Smoking Tobacco: Former Cigarettes Passive Smoke Exposure: Past Smokeless Tobacco: Never Alcohol Use Standard Drinks/Week Comments Not Currently 0 (1 standard drink = 0.6 oz pur e alcohol) Depression Answer Date Recorded Patient Health Questionnaire-9 Score 0 09/13/2024 Patient Health Questionnaire-9 Score 0 09/13/2024 Last PHQ-9: Questionnaire Data Not on file 0 09/13/2024 Housing Stability Answer Date Recorded What is your housing situation today? I have vishnu saeed 09/13/[address] you li ve. Do you have problems with any of the following? None of the above 09/13/2024 Food Insecurity Answer Date Recorded Within the past 12 months, y ou worried that your food would run out before you got money to buy more: Never True 09/13/2024 Within the past 12 months,th e food you bought just didn't last and you didn't have enough money to get more: Never True Transportation Answer Date Recorded In the past 12 months, has l ack of transportation kept you from medical appts, meetings, work or from getting things needed for daily living? No 09/13/2024 Utilities Answer Date Recorded In the past 12 months, has t he electric, gas, oil or water company threatened to shut off services in your home? No 09/13/2024 Depression Answer Date Recorded Patient Health Questionnaire-2 Score 0 09/13/2024 Internet Access Answer Date Recorded Internet Access Q1 Yes 09/13/2024 Internet Access Q2 Not on file 09/13/2024 Comments No Sex and Gender Information Value [...] Description 09/22/2024 2:00 PM EST Clinical Support [facility] MED & PEDS [address] [place] [address] Stephanie Ling, MARCIO 505 [place] [address] 09/23/2024 1:00 PM EST Office Visit [facility] ADULT DENTAL [address] [place] [address] Geeta Jarquin 505 [place] [address] 12/09/2024 2:30 PM EDT Office Visit [facility] MED & PEDS [address] [place] [address] Woodrow Montalvo MD 505 [place] [address] documented as of this encounter Visit Diagnoses Not on filedocumented in this encounter Additional Health Concerns Assessment Noted Time PHQ-9 Depression Total Score: 0 09/13/19 1:41 PM EST documented as of this encounter Care Teams Watch Case Polisher Relationship Specialty Start Date End Date Woodrow Montalvo MD [address] [place] [address] PCP - General Internal Medicine 01/01/18 documented as of this encounter
--- OUTSIDE RECORDS SUMMARY | 2024-09-13 17:43 | XMS_ITS | Encounter Summary ---
Author Organization [employer] Address [address] [facility] 7t [place] [address] Care Team Providers Care Statement Clerk Name Role Phone Woodrow Montalvo MD Primary Care Provider [phone] Reason for Visit * Reason Onset Date Comments Appointment Request 01/19/2024 Encounter Details Date Type Department Care Team ([facility] st Contact Info) Description 01/19/2024 Telephone [facility] CHC MED & PEDS [address] [place], [place] [phone] Woodrow Montalvo MD [address] [place], [place] [phone] Appointment Request Social History Tobacco Use Types [...] encounter Miscellaneous Notes * Telephone Encounter - Jaye Stark - 01/19/2024 11:04 AM EDT Tc from pt requesting to r/s no show pap exam for today . documented in this encounter Plan of Treatment Upcoming Encounters Date Type Department Care Team (Late st Contact Info) Description 09/22/2024 2:00 PM EST Clinical Support [facility] MED & PEDS [address] [place] [address] Stephanie Ling, RN 505 [place] [address] 09/23/2024 1:00 PM EST Office Visit [facility] ADULT DENTAL [address] [place] [address] Geeta Jarquin 505 [place] [address] 12/09/2024 2:30 PM EDT Office Visit [facility] MED & PEDS [address] [place] [address] Woodrow Montalvo MD [address] [place] [address] documented as of this encounter Visit Diagnoses Not on filedocumented in this encounter Additional Health Concerns Assessment Noted Time PHQ-9 Depression Total Score: 14 023 9:16 AM EDT documented as of this encounter Care Teams Statement Clerk Relationship Specialty Start Date End Date Woodrow Montalvo MD [address] [place] [address] PCP - General Internal Medicine 01/01/18 documented as of this encounter
--- OUTSIDE RECORDS SUMMARY | 2024-09-13 17:43 | XMS_ITS | Encounter Summary ---
Author Organization [employer] Address [address] [facility] [address] [place] [address] Care Team Providers Care Sales/Marketing Name Role Phone Woodrow Montalvo MD Primary Care Provider [phone] Reason for Visit * Reason Onset Date Comments chartprep 09/09/2024 Encounter Details Date Type Department Care Team ([facility] Contact Info) Description 09/09/2024 Telephone [facility] CHC MED & PEDS [address] [place], [place] [phone] Woodrow Montalvo MD [address] [place], [place] [phone] chartprep Social History Tobacco Use Types Packs/Day Years [...] encounter Miscellaneous Notes * Telephone Encounter - Kay Robledo MA - 09/09/2024 3:32 PM EST Chart Prep Labs: done Images: done Vaccines due: yes Referrals: complete Screenings: Overdue care gaps: Sbirt, SDOH, PHQ-9 documented in this encounter Plan of Treatment Upcoming Encounters Date Type Department Care Team (Late st Contact Info) Description 09/22/2024 2:00 PM EST Clinical Support [facility] MED & PEDS [address] [place] [address] Stephanie Ling RN [address] [place] [address] 09/23/2024 1:00 PM EST Office Visit [facility] ADULT DENTAL [address] [place] [address] Geeta Jarquin 505 [place] [address] 12/09/2024 2:30 PM EDT Office Visit [facility] MED & PEDS [address] [place] [address] Woodrow Montalvo MD [address] [place] [address] documented as of this encounter Visit Diagnoses Not on filedocumented in this encounter Additional Health Concerns Assessment Noted Time PHQ-9 Depression Total Score: 14 023 9:16 AM EDT documented as of this encounter Care Teams Sales/Marketing Relationship Specialty Start Date End Date Woodrow Montalvo MD [address] [place] [address] PCP - General Internal Medicine 01/01/18 documented as of this encounter
--- OUTSIDE RECORDS SUMMARY | 2024-09-13 17:43 | XMS_ITS | Encounter Summary ---
Author Organization [employer] Address [address] [facility] 7t [place] [address] Care Team Providers Care Child Monitor Name Role Phone Woodrow Montalvo MD Primary Care Provider [phone] Reason for Visit * Reason Comments Med Refill Encounter Details Date Type Department Care Team ([facility] Contact Info) Description 08/30/2024 Refill [facility] CHC MED & PEDS [address] [place], [place] [phone] Woodrow Montalvo MD [address] [place], [place] [phone] Chronic pain syndrome Social History Tobacco Use [...] 09/22/2024 2:00 PM EST Clinical Support [facility] MED & PEDS 505 [place] [address] Stephanie Ling RN 505 [place] [address] 09/23/2024 1:00 PM EST Office Visit [facility] ADULT DENTAL [address] [place] [address] Mark Jarquinet 505 [place] [address] 12/09/2024 2:30 PM EDT Office Visit [facility] MED & PEDS [address] [place] [address] Woodrow Montalvo MD [address] [place] [address] documented as of this encounter Visit Diagnoses Diagnosis Chronic pain syndrome documented in this encounter Additional Health Concerns Assessment Noted Time PHQ-9 Depression Total Score: 14 023 9:16 AM EDT documented as of this encounter Care Teams Child Monitor Relationship Specialty Start Date End Date Woodrow Montalvo MD [address] [place] [address] PCP - General Internal Medicine 01/01/18 documented as of this encounter
--- OUTSIDE RECORDS SUMMARY | 2024-09-13 17:43 | XMS_ITS | Encounter Summary ---
Author Organization [employer] Address [address] 7t [place] [address] Care Team Providers Care Electric Welder Name Role Phone Woodrow Montalvo MD Primary Care Provider [phone] Reason for Visit * Reason Onset Date Comments pain on tooth 06/20/2024 Encounter Details Date Type Department Care Team ([facility] st Contact Info) Description 06/20/2024 Telephone [facility] ADULT DENTAL [address] [place], [place] [phone] Geronimo Flannery, DMD [address] [place], [place] [phone] pain on tooth Social History Tobacco Use Types Packs/Day Years [...] encounter Miscellaneous Notes * Telephone Encounter - Maria Antonia Abner - 06/20/2024 10:48 AM EST Patient called in stating that she is nervous about appt today because she is in pain on the tooth that she believes is going to worked on today. Explained to patient that she can voice her concern and that it can be verified with the Dr. If treatment should continue but advised not to cancel appt.Patient understood DR documented in this encounter Plan of Treatment Upcoming Encounters Date Type Department Care Team (Late st Contact Info) Description 09/22/2024 2:00 PM EST Clinical Support [facility] MED & PEDS [address] [place] [address] Stephanie Ling, MARCIO 505 [place] [address] 09/23/2024 1:00 PM EST Office Visit [facility] ADULT DENTAL [address] [place] [address] Geeta Jarquin 505 [place] [address] 12/09/2024 2:30 PM EDT Office Visit [facility] MED & PEDS [address] [place] [address] Woodrow Montalvo MD 505 [place] [address] documented as of this encounter Visit Diagnoses Not on filedocumented in this encounter Additional Health Concerns Assessment Noted Time PHQ-9 Depression Total Score: 14 023 9:16 AM EDT documented as of this encounter Care Teams Electric Welder Relationship Specialty Start Date End Date Woodrow Montalvo MD 505 [place] [address] PCP - General Internal Medicine 01/01/18 documented as of this encounter
--- OUTSIDE RECORDS SUMMARY | 2024-09-13 17:43 | XMS_ITS | Encounter Summary ---
Author Organization [employer] Address [address] 7t [place] [address] Care Team Providers Care Industrial Pipefitter Journeyman Name Role Phone Woodrwo Montalvo MD Primary Care Provider [phone] Reason for Visit * Reason Comments Med Refill Encounter Details Date Type Department Care Team ([facility] st Contact Info) Description 08/28/2024 Refill [facility] MEDICINE [address] [place] [address] Carly Tejeda, NICOL [address] [place] [address] Social History Tobacco Use Types Packs/Day Years [...] encounter Miscellaneous Notes * Telephone Encounter - Carly Tejeda CNM - 08/30/2024 12:26 PM EST Needs followup with me as per previous refill request documented in this encounter Plan of Treatment Upcoming Encounters Date Type Department Care Team (Late st Contact Info) Description 09/22/2024 2:00 PM EST Clinical Support [facility] MED & PEDS [address] [place] [address] Stephanie Ling, RN 505 [place] [address] 09/23/2024 1:00 PM EST Office Visit [facility] ADULT DENTAL [address] [place] [address] Jarquin Raquelirgo 505 [place] [address] 12/09/2024 2:30 PM EDT Office Visit [facility] MED & PEDS [address] [place] [address] Woodrow Montalvo MD 505 [place] [address] documented as of this encounter Visit Diagnoses Not on filedocumented in this encounter Additional Health Concerns Assessment Noted Time PHQ-9 Depression Total Score: 14 023 9:16 AM EDT documented as of this encounter Care Teams Industrial Pipefitter Journeyman Relationship Specialty Start Date End Date Woodrow Montalvo MD [address] [place] [address] PCP - General Internal Medicine 01/01/18 documented as of this encounter
--- OUTSIDE RECORDS SUMMARY | 2024-09-13 17:43 | XMS_ITS | Encounter Summary ---
Author Organization [employer] Address [address] [place] [address] Care Team Providers Care Chief Risk Officer Name Role Phone Woodrow Montalvo MD Primary Care Provider [phone] Reason for Visit * Reason Onset Date Comments Med Refill 02/10/2024 Encounter Details Date Type Department Care Team ([facility] st Contact Info) Description 02/10/2024 Telephone [facility] MEDICINE [address] [place] [address] Woodrow Montalvo MD [address] [place], [place] [phone] Med Refill Social History Tobacco Use Types [...] encounter Miscellaneous Notes * Telephone Encounter - Stpehanie Brown - 02/10/2024 11:42 AM EDT TC from pt requesting medication refill. Medications needing refill : traMADol (Ultram) 50 MG tablet To be sent to: [facility]/pharmacy #[id number] documented in this encounter Plan of Treatment Upcoming Encounters Date Type Department Care Team (Late st Contact Info) Description 09/22/2024 2:00 PM EST Clinical Support [facility] MED & PEDS [address] [place] [address] Stephanie Ling RN 505 [place] [address] 09/23/2024 1:00 PM EST Office Visit [facility] ADULT DENTAL [address] [place] [address] Geeta Jarquin 505 [place] [address] 12/09/2024 2:30 PM EDT Office Visit [facility] MED & PEDS [address] [place] [address] Woodrow Montalvo MD [address] [place] [address] documented as of this encounter Visit Diagnoses Not on filedocumented in this encounter Additional Health Concerns Assessment Noted Time PHQ-9 Depression Total Score: 14 023 9:16 AM EDT documented as of this encounter Care Teams Chief Risk Officer Relationship Specialty Start Date End Date Woodrow Montalvo MD [address] [place] [address] PCP - General Internal Medicine 01/01/18 documented as of this encounter
--- OUTSIDE RECORDS SUMMARY | 2024-09-13 17:43 | XMS_ITS | Encounter Summary ---
Author Organization [employer] Address [address] 7[address] [place] [address] Care Team Providers Care Cloth Hand Name Role Phone Woodrow Montalvo MD Primary Care Provider [phone] Reason for Visit * Reason Comments Med Refill Encounter Details Date Type Department Care Team ([facility] st Contact Info) Description 08/13/2024 Refill [facility] MEDICINE [address] [place] [address] Woodrow Montalvo MD [address] [place] [address] Chronic tension-type headache, not intractable Social History Tobacco Use Types Packs/Day Years [...] [facility] MED & PEDS [address] [place] [address] Stephanie Ling RN 505 [place] [address] 09/23/2024 1:00 PM EST Office Visit [facility] ADULT DENTAL [address] [place] [address] Mark Jarquinet [address] [place] [address] 12/09/2024 2:30 PM EDT Office Visit [facility] MED & PEDS [address] [place] [address] Woodrow Montalvo MD [address] [place] [address] documented as of this encounter Visit Diagnoses Diagnosis Chronic tension-type headache, not intractable Chronic tension type headache documented in this encounter Additional Health Concerns Assessment Noted Time PHQ-9 Depression Total Score: 14 023 9:16 AM EDT documented as of this encounter Care Teams Cloth Hand Relationship Specialty Start Date End Date Woodrow Montalvo MD 505 [place] [address] PCP - General Internal Medicine 01/01/18 documented as of this encounter
--- OUTSIDE RECORDS SUMMARY | 2024-09-13 17:43 | XMS_ITS | Encounter Summary ---
Author Organization [employer] Address [address] [place] [address] Care Team Providers Care Thread Twister Name Role Phone Woodrow Montalvo MD Primary Care Provider [phone] Reason for Visit * Reason Onset Date Comments appt missed 05/19/2023 Encounter Details Date Type Department Care Team ([facility] st Contact Info) Description 05/19/2023 Telephone [facility] ADULT DENTAL [address] [place] [address] Geronimo Flannery, DMD [address] [place] [address] appt missed Social History Tobacco Use Types Packs/Day Years [...] Notes * Telephone Encounter - Maria Antonia Levine - 05/19/2023 2:49 PM EDT Patient had an appt on 05/17. She missed her appt and would like to reschedule appt . documented in this encounter Plan of Treatment Upcoming Encounters Date Type Department Care Team (Late st Contact Info) Description 09/22/2024 2:00 PM EST Clinical Support [facility] MED & PEDS [address] [place] [address] Stephanie Ling, MARCIO 505 [place] [address] 09/23/2024 1:00 PM EST Office Visit [facility] ADULT DENTAL [address] [place] [address] Geeta Jarquin 505 [place] [address] 12/09/2024 2:30 PM EDT Office Visit [facility] MED & PEDS [address] [place] [address] Woodrow Montalvo MD 505 [place] [address] documented as of this encounter Visit Diagnoses Not on filedocumented in this encounter Additional Health Concerns Assessment Noted Time PHQ-9 Depression Total Score: 14 023 9:16 AM EDT documented as of this encounter Care Teams Thread Twister Relationship Specialty Start Date End Date Woodrow Montalvo MD [address] [place] [address] PCP - General Internal Medicine 01/01/18 documented as of this encounter
--- OUTSIDE RECORDS SUMMARY | 2024-09-13 17:43 | XMS_ITS | Encounter Summary ---
Author Organization [employer] Address [address] [place] [address] Care Team Providers Care Energy Specialist Name Role Phone Woodrow Montalvo MD Primary Care Provider [phone] Reason for Visit * Reason Comments Routine Cleaning Dental Exam Encounter Details Date Type Department Care Team ([facility] st Contact Info) Description 08/22/2024 1:00 PM EST Office Visit [facility] [address] [place], [place] [phone] Gisele Garces Social History Tobacco Use Types Packs/Day Years [...] Sign Reading Time Taken Comments Blood Pressure 128/86 08/22/2024 12:57 PM EST Pulse - - Temperature - - Respiratory Rate - - Oxygen Saturation - - Inhaled Oxygen Concentration - - Weight - - Height - - Body Mass Index - - documented in this encounter Progress Notes * Gisele Garces - 08/22/2024 1:00 PM EST Patient ID: Rachel Stafford is a 48 y.o. female. Time Out: Timeout Date: 08/22/24, Timeout Time: 1255 Location: [facility] Tooth: Maxilla and Mandible Procedure: Exam, X-rays, and Prophylaxis Verified the above with patient, visual merchandising assistant, and provider. Confirmed via patient's chart, intraorally and by radiographs. Flatbed Stitcher: not applicable Medical Hx: Vitals: Blood pressure 128/86. Medications, Med Hx reviewed with patient and updated in chart. Treatment Provided Dental procedures in this visit D1110 - PROPHYLAXIS - ADULT (Completed) Service provider: Gisele Dumont provider: Geeta Jarquin [id number] - ADJUNCTIVE GENERAL SERVICES - PROFESSIONAL VISITS - CASE PRESENTATION, SUBSEQUENT TO DETAILED AND EXTENSIVE TREATMENT PLANNING (Completed) Service provider: Gisele Dumont provider: Geeta Jarquin D1330 - ORAL HYGIENE INSTRUCTIONS (Completed) Service provider: Gisele Dumont provider: Geeta Jarquin D0210 - DIAGNOSTIC - DIAGNOSTIC IMAGING - INTRAORAL - COMPREHENSIVE SERIES OF RADIOGRAPHIC IMAGES (Completed) Service provider: Gisele Dumont provider: Geeta Jarquin Instruments Used: Ultrasonic Scalers, Hand Scalers, and Prophy angle Fluoride: N/A Oral Cancer Screening: No lesions Head/Neck Exam: No Lesions Calculus: Light and Generalized Plaque: Light and Generalized Stain: Light and Localized Bleeding: Light and Localized Gingiva: Healthy, Perio Charting Completed, and Recession- generalized OH: Fair Perio Chart: Completed Dental exam done by Dr. Jarquin. Oral hygiene instructions provided to patient including brushing technique and flossing. Recommendations: Parmelee two times daily, modified sidhu technique, Floss daily, Electric toothbrush, Soft bristle toothbrush, Parmelee Tongue, Anti-sensitivity toothpaste Recall Frequency: 6 mo NV: Restorations Hygienist: Gisele Garces RDH * Geeta Jarquin - 08/22/2024 1:00 PM EST Images from the original note were not included. Dental procedures in this visit D1110 - PROPHYLAXIS - ADULT (Completed) Service provider: Gisele Dumont provider: Geeta Jarquin [id number] - ADJUNCTIVE GENERAL SERVICES - PROFESSIONAL VISITS - CASE PRESENTATION, SUBSEQUENT TO DETAILED AND EXTENSIVE TREATMENT PLANNING (Completed) Service provider: Gisele Dumont provider: Geeta Jarquin D1330 - ORAL HYGIENE INSTRUCTIONS (Completed) Service provider: Gisele Dumont provider: Geeta Jarquin D0210 - DIAGNOSTIC - DIAGNOSTIC IMAGING - INTRAORAL - COMPREHENSIVE SERIES OF RADIOGRAPHIC IMAGES (Completed) Service provider: Gisele Dumont provider: Geeta Jarquin D0150 - COMPREHENSIVE ORAL EVALUATION - NEW OR ESTABLISHED PATIENT (Completed) Service provider: Geeta Jarquin Billrios provider: Geeta Jarquin Patient ID: Rachel Stafford is a 48 y.o. female. Time Out: Timeout Date: 08/22/24, Timeout Time: 1255 Location: [facility] Tooth: Maxilla and Mandible Procedure: Exam Verified the above with patient, visual merchandising assistant, and provider. Confirmed via patient's chart, intraorally and by radiographs. Flatbed Stitcher: not applicable Chief Complaint Patient presents with Routine Cleaning Dental Exam Medical Hx: Vitals: Blood pressure 128/86. Past Medical History: Diagnosis Date Asthma Bipolar disorder ([facility]) Hypertension Obesity Medications: Outpatient Encounter Medications as of 08/22/2024 Medication Sig Dispense Refill albuterol (2.5 MG/3ML) 0.083% nebulizer solution Take 3 mL by nebulization every 6 (six) hours. 75 mL 11 Alcohol Swabs (Alcohol Prep) 70 % pads APPLY TO THE SKIN ONCE 100 each 3 atenolol (Tenormin) 25 MG tablet TAKE 1 TABLET BY MOUTH EVERY DAY 90 tablet 1 Blood Pressure kit Brexpiprazole (Rexulti) 1 MG tablet Take 1 tablet by mouth. buPROPion XL (Wellbutrin XL) 150 MG 24 hr tablet TOME 1 TABLETA POR V A ORAL TODOS LOS D EN LA MA ELIE cetirizine (ZyrTEC) 10 MG tablet Take 1 tablet by mouth in the morning. As needed for allergies. fluticasone (Flonase) 50 MCG/ACT nasal spray USE ONE SPRAY IN EACH NOSTRIL ONCE DAILY FreeStyle lancets APPLY 1 LANCET BY TO SKIN ROUTE EVERY DAY 100 each 11 FREESTYLE LITE test strip USE 1 BY TO SKIN ROUTE 2 TIMES EVERY DAY 100 strip 6 furosemide (Lasix) 20 MG tablet Take 1 tablet (20 mg) by mouth Once per day. 90 tablet 1 ketoconazole (NIZOral) 2 % shampoo LATHER ONTO AFFECTED AREA(S), LEAVE IN PLACE FOR 5 MINUTES, THENRINSE OFF WITH WATER- USE DAILY 120 mL 5 losartan (Cozaar) 25 MG tablet Take 1 tablet (25 mg) by mouth Once per day. 30 tablet 11 metFORMIN (Glucophage) 500 MG tablet TOME GINNA TABLETA DOS VECES AL DOROTHY CON LAS COMIDAS EN LA MANANA& EN LA NOCHE 180 tablet 1 Mometasone Furoate (Asmanex HFA) 100 MCG/ACT aerosol Inhale 100 mcg in the morning and at bedtime. 13 g 11 perphenazine 2 MG tablet TOME 1 TABLETA POR V A ORAL TODOS LOS D CUANDO SEA NECESARIO senna-docusate (Senexon-S) 8.6-50 MG tablet TAKE 1 TABLET BY MOUTH EVERY MORNING 90 tablet 3 sucralfate (Carafate) 1 g tablet TOME GINNA TABLETA POR VIA ORAL CUATRO VECES AL DOROTHY ON AN EMPTY STOMACH 1 HOUR BEFORE MEALS AND BED 120 tablet 3 SUMAtriptan (Imitrex) 25 MG tablet Take 1 tablet by mouth. Once with fluids as early as possible after the onset of a migraine attack, may repeat after 2 hours if headache returns, Not to exceed 200mg in 24hours triamcinolone (Kenalog) 0.1 % cream Apply topically if needed in the morning and at bedtime (pain and swelling). 30 g 2 Ventolin HFA 108 (90 Base) MCG/ACT inhaler INHALE 2 PUFFS EVERY 4 HOURS IF NEEDED FOR WHEEZING. 18 g 1 verapamil SR (Calan SR) 120 MG ER tablet TAKE 1 TABLET (120 MG) BY MOUTH IN THE MORNING. EVERY DAY WITH FOOD 90 tablet 3 zolpidem (Ambien) 10 MG tablet Take 1 tablet by mouth. Once as needed diclofenac (Voltaren) 75 MG EC tablet TOME GINNA TABLETA CADA 12 HORAS (Patient not taking: Reported on 08/22/2024) 60 tablet 0 Elastic Bandages & Supports (Wrist Splint) misc 2 (Patient not taking: Reported on 08/22/2024) estradiol (Divigel) gel Place 1 Application. (0.25 mg) on the skin Once per day. Apply to thigh each morning, alternate thighs 30 each 1 ketoconazole (NIZOral) 2 % cream Apply topically every 12 (twelve) hours. (Patient not taking: Reported on 08/22/2024) Minoxidil 5 % solution Apply 1 mL topically. 2 times every day directly onto the scalp in the hair loss area (Patient not taking: Reported on 08/22/2024) naloxone (Narcan) 4 mg/0.1 mL nasal spray Administer 0.1 mL into affected nostril(s). (Patient not taking: Reported on 08/22/2024) Nebulizers (Compressor/Nebulizer) misc (Patient not taking: Reported on 08/22/2024) omeprazole (PriLOSEC) [address] capsule Take 1 capsule by mouth. Before a meal (Patient not taking: Reported on 08/22/2024) traMADol (Ultram) 50 MG tablet TAKE 1 TABLET BY MOUTH EVERY 8 HOURS IF NEEDED FOR SEVERE PAIN FOR UP TO 28 DAYS (Patient not taking: Reported on 08/22/2024) 84 tablet 0 No facility-administered encounter medications on file as of 08/22/2024. 48 y/o female presents for an exam seen by Dr. Geeta Jarquin, KEMI. Chief Complaint: I have pain in my lower right back tooth since last week when tooth broke while eating Medical History: Patient does not report any changes in health issues that could alter the Treatment Plan. Medical consult / medical clearance needed: None APACHE: Pain: no Duration: n/a Scale of pain from 1-10 =n/a Pain radiating: no Postural variation: no Allergies: Reviewed in EHR Medications: Reviewed in EHR Radiographs X-rays taken today: FMX taken today Discussion: -Pt stated that pt's doesn't have pain / sensitivity to cold/hot /sweet or spicy food and beverges. -Reviewed radiographs with pt. -Upon exam, generalized cervical abrasion evident. -Pt brushes horizontally and a little aggressively as stated by pt and also excess soda consumption. -Pt was recommended to decrease soda consumption and taught correct brushing technique. -Restorations planned as charted. -Villalba #30 recommended- RCT treated. Pt was informed that if not restored, tooth might fracture, get infected and possibly lead to extraction in future. Pt understood and agreed. -OHI reviewed. Emphasis was laid on maintaining good oral hygiene regimen at home along with regular visits to dentist. -Pt understood, was satisfied with our conversation and agreed with tx plan; dismissed in good condition. -All questions answered. Soft tissue exam: WNL ; OCS- negative Head and neck exam: Lymph Nodes, Lips, Palate, Buccal Mucosa, Floor of Mouth, Tongue, Tonsils, Alveolar Ridges, Oropharynx, Salivary Ducts, Vestibules - no abnormal findings. TMJ/Occlusal - TMJ is within normal limits. Oral Cancer Risk - low Oral Hygiene Instruction Provided - Yes Oral Hygiene Instructions: Parmelee two times daily, modified sidhu technique, Floss daily, Electric toothbrush, Soft bristle toothbrush, Parmelee Tongue. Referrals - None Treatment plan: -restorative -Post/core/crown All questions answered and expressed understanding. Dismissed in good condition. NV: restorative Hygienist: Gisele Garces RDH Dentist: Dr. Geeta Jarquin, DMD documented in this encounter Plan of Treatment Upcoming Encounters Date Type Department Care Team (Late st Contact Info) Description 09/22/2024 2:00 PM EST Clinical Support [facility] [address] [place] [address] Stephanie Ling, RN [address] [place] [address] 09/23/2024 1:00 PM EST Office Visit [facility] [address] [place], [place] [phone] Geeta Jarquin [address] [place], [place] [phone] 12/09/2024 2:30 PM EDT Office Visit [facility] [address] [place], [place] [phone] Woodrow Montalvo MD [address] [place], [place] [phone] Scheduled Orders Name Type Priority Associated Diagnoses Orde r Schedule 6 DIFL 6 DIFL RESIN-BASED COMPOSITE - 4 OR MORE SURFACES (ANTERIOR) Dental Routine 1 Occurrence s starting 08/22/2024 20 DO 20 DO RESTORATIVE - RESIN-BASED COMPOSITE RESTORATIONS - DIRECT - RESIN-BASED COMPOSITE - TWO SURFACES, POSTERIOR Dental Routine 1 Occur rences starting 08/22/2024 documented as of this encounter Procedures Procedure Name Priority Date/Time Associated Diagnosis Comments PROPHYLAXIS - ADULT Routine 08/22/2024 1 :00 PM EST ORAL HYGIENE INSTRUCTIONS Routine 2024 1:00 PM EST INTRAORAL - COMPLETE SERIES OF RADIOGRAPHIC IMAGES Routine 08/22/2024 1:00 PM EST COMPREHENSIVE ORAL EVALUATION - NEW OR ESTABLISHED PATIENT Routine 08/22/2024 1:00 PM EST CASE PRESENTATION, DETAILED AND EXTENSIVE TREATMENT PLANNING Routine 08/22/2024 1:00 PM EST documented in this encounter Visit Diagnoses Not on filedocumented in this encounter Additional Health Concerns Assessment Noted Time PHQ-9 Depression Total Score: 14 023 9:16 AM EDT documented as of this encounter Care Teams Energy Specialist Relationship Specialty Start Date End Date Woodrow Montalvo MD [address] [place] [address] PCP - General Internal Medicine 01/01/18 documented as of this encounter
--- OUTSIDE RECORDS SUMMARY | 2024-09-13 17:43 | XMS_ITS | Encounter Summary ---
Author Organization [employer] Address [address] [place] [address] Care Team Providers Care Cook Pickled Meat Name Role Phone Woodrow Montalvo MD Primary Care Provider [phone] Reason for Visit * Reason Comments Med Change Request Encounter Details Date Type Department Care Team ([facility] Contact Info) Description 12/10/2023 Refill [facility] [address] [place], [place] [phone] Woodrow Montalvo MD [address] [place] [address] Cough Social History Tobacco Use Types Packs/Day Years [...] Description 09/22/2024 2:00 PM EST Clinical Support [facility] [address] [place] [address] Stephanie Ling RN [address] [place] [address] 09/23/2024 1:00 PM EST Office Visit [facility] [address] [place] [address] Geeta Jarquin [address] [place] [address] 12/09/2024 2:30 PM EDT Office Visit [facility] [address] [place] [address] Woodrow Montalvo MD [address] [place] [address] documented as of this encounter Visit Diagnoses Diagnosis Cough documented in this encounter Additional Health Concerns Assessment Noted Time PHQ-9 Depression Total Score: 14 023 9:16 AM EDT documented as of this encounter Care Teams Cook Pickled Meat Relationship Specialty Start Date End Date Woodrow Montalvo MD [address] [place] [address] PCP - General Internal Medicine 01/01/18 documented as of this encounter
--- OUTSIDE RECORDS SUMMARY | 2024-09-13 17:43 | XMS_ITS | Encounter Summary ---
Author Organization [employer] Address [address] [facility] 7[address] [place] [address] Care Team Providers Care Assessment Technician Name Role Phone Woodrow Montalvo MD Primary Care Provider [phone] Reason for Visit * Reason Comments Diabetes Hypertension Encounter Details Date Type Department Care Team ([facility] st Contact Info) Description 09/13/2024 1:30 PM EST Office Visit [facility] MED & PEDS [address] [place], [place] [phone] Woodrow Montalvo MD [address] [place], [place] [phone] Type 2 diabetes mellitus without complication, without long-term current use of insulin (CMS/HCC) (Primary Dx); Primary hypertension; Dietary counseling; Exercise counseling; Class 2 severe obesity due to excess calories with serious comorbidity and body mass index (BMI) of 39.0 to 39.9 in adult (CMS/HCC); Encounter for immunization Social History Tobacco Use Types Packs/Day Years [...] Sign Reading Time Taken Comments Blood Pressure 122/80 09/13/2024 1:40 PM EST Pulse 78 09/13/2024 1:40 PM EST Temperature 36.9 ??C (98.5 ??F) 09/13/2024 1:40 PM ES T Respiratory Rate 20 09/13/2024 1:40 PM EST Oxygen Saturation 98% 09/13/2024 1:40 PM EST Inhaled Oxygen Concentration - - Weight 101 kg (223 lb) 09/13/2024 1:40 PM EST Height 161 cm (5' 3.39 ) 09/13/2024 1:40 PM EST Body Mass Index 39.02 09/13/2024 1:40 PM EST documented in this encounter Progress Notes * Woodrow Montalvo MD - 09/13/2024 1:30 PM EST Subjective Patient ID: Rachel Stafford is a 48 y.o. female who presents for Diabetes and Hypertension. Diabetes She presents for her follow-up diabetic visit. She has type 2 diabetes mellitus. Pertinent negatives for hypoglycemia include no confusion, dizziness, headaches, hunger, mood changes, nervousness/anxiousness, pallor, seizures, sleepiness, speech difficulty, sweats or tremors. Pertinent negatives for diabetes include no blurred vision, no chest pain, no fatigue, no foot paresthesias, no foot ulcerations, no polydipsia, no polyphagia, no polyuria, no visual change, no weakness and no weight loss.Pertinent negatives for hypoglycemia complications include no blackouts, no hospitalization, no required assistance and no required glucagon injection. Hypertension This is a chronic problem. The problem is unchanged. The problem is controlled. Pertinent negativesinclude no anxiety, blurred vision, chest pain, headaches, malaise/fatigue, neck pain, orthopnea, palpitations, peripheral edema, PND, shortness of breath or sweats. Patient denies any acute events since the last office visit. Feels overall well at her baseline. Has started losartan 25 mg daily which is well-tolerated. No reported symptom of hypoglycemia since the last office visit. Patient Active Problem List Diagnosis Asthma Blurring of visual image Chronic neck pain Gastroesophageal reflux disease Hemorrhoids Type 2 diabetes mellitus ([facility]) Uterine leiomyoma PTSD (post-traumatic stress disorder) Bipolar disorder ([facility]) Head ache Encounter for screening colonoscopy Chronic idiopathic constipation COVID-19 Upper respiratory tract infection Elevated blood pressure reading Primary hypertension Decreased libido Well woman exam Current Outpatient Medications on File Prior to Visit Medication Sig Dispense Refill albuterol (2.5 MG/3ML) [...] in the morning. As needed for allergies. diclofenac (Voltaren) 75 MG EC tablet TOME GINNA TABLETA CADA 12 HORAS (Patient not taking: Reported on 08/22/2024) 60 tablet 0 Elastic Bandages & Supports (Wrist Splint) misc 2 (Patient not taking: Reported on 08/22/2024) estradiol (Divigel) gel Place 1 Application. (0.25 mg) on the skin Once per day. Apply to thigh each morning, alternate thighs 30 each 1 fluticasone (Flonase) 50 MCG/ACT nasal spray USE [...] 90 tablet 1 ketoconazole (NIZOral) 2 % cream Apply topically every 12 (twelve) hours. (Patient not taking: Reported on 08/22/2024) ketoconazole (NIZOral) 2 % shampoo LATHER ONTO [...] MANANA& EN LA NOCHE 180 tablet 1 Minoxidil 5 % solution Apply 1 mL topically. 2 times every day directly onto the scalp in the hair loss area (Patient not taking: Reported on 08/22/2024) Mometasone Furoate (Asmanex HFA) 100 MCG/ACT aerosol Inhale 100 mcg in the morning and at bedtime. 13 g 11 naloxone (Narcan) 4 mg/0.1 mL nasal spray Administer 0.1 mL into affected nostril(s). (Patient not taking: Reported on 08/22/2024) Nebulizers (Compressor/Nebulizer) misc (Patient not taking: Reported on 08/22/2024) omeprazole (PriLOSEC) [address] capsule Take 1 capsule by mouth. Before a meal (Patient not taking: Reported on 08/22/2024) perphenazine 2 MG tablet TOME 1 TABLETA [...] returns, Not to exceed 200mg in 24hours traMADol (Ultram) 50 MG tablet TAKE 1 TABLET BY MOUTH EVERY 8 HOURS IF NEEDED FOR SEVERE PAIN FOR UP TO 28 DAYS 84 tablet 0 triamcinolone (Kenalog) 0.1 % cream Apply topically [...] 1 tablet by mouth. Once as needed No current facility-administered medications on file prior to visit. Review of Systems Constitutional: Negative for fatigue, malaise/fatigue and weight loss. Eyes: Negative for blurred vision. Respiratory: Negative for shortness of breath. Cardiovascular: Negative for chest pain, palpitations, orthopnea and PND. Endocrine: Negative for polydipsia, polyphagia and polyuria. Musculoskeletal: Negative for neck pain. Skin: Negative for pallor. Neurological: Negative for dizziness, tremors, seizures, speech difficulty, weakness and headaches. Psychiatric/Behavioral: Negative for confusion. The patient is not nervous/anxious. Objective BP 122/80 (BP Location: Left arm, Patient Position: Sitting, BP Cuff Size: Large adult) Pulse 78 Temp 98.5 ??F (36.9 ??C) (Oral) Resp 20 Ht 5' 3.39 (1.61 m) Wt 223 lb (101 kg) SpO2 98% BMI 39.02 kg/m?? Physical Exam Constitutional: General: She is not in acute distress. Appearance: Normal appearance. She is obese. She is not ill-appearing, toxic- appearing or diaphoretic. Cardiovascular: Rate and Rhythm: Normal rate. Pulmonary: Effort: Pulmonary effort is normal. No respiratory distress. Breath sounds: No stridor. No wheezing or rhonchi. Neurological: General: No focal deficit present. Mental Status: She is alert. Psychiatric: Mood and Affect: Mood normal. Assessment/Plan Diagnoses and all orders for this visit: Type 2 diabetes mellitus without complication, without long-term current use of insulin ([facility]) - semaglutide (Ozempic) 2 MG/1.5ML solution pen-injector; Inject 0.25 mg under the skin 1 (one) time per week. - Albumin, Random Urine W/Creatinine; Future A1c is at goal. To continue with metformin. Ozempic started given the multiple benefits patient will get from this medication. Primary hypertension Comments: Hypertension is controlled on losartan 25 mg once a day Advised to continue with the same. DASH diet Dietary counseling Exercise counseling Dietary Recommendations: Fruits, vegetables, whole grains, protein foods, and fat-free or low-fat dairy products are healthychoices. Eat different types of protein foods in your diet. This can include seafood, lean meats, poultry, beans, peas, lentils, nuts, seeds, soy products, and eggs. Limit foods and beverages higher in added sugars, saturated fat, and sodium. Exercise Recommendations: At least 150 minutes of moderate-intensity physical activity per week, or an equivalent combinationof moderate- and vigorous-intensity activity Class 2 severe obesity due to excess calories with serious comorbidity and body mass index (BMI) of39.0 to 39.9 in adult ([facility]) Discussed calorie deficit, recommended reduction of 20-30% of maintenance calories; perforator referral offered. Recommended to decrease soda and sugary beverage consumption. Recommended at least 20 g per meal of protein to assist with satiety. Recommended at least 150 min/week of moderate intensity exercise. documented in this encounter Plan of Treatment Upcoming Encounters Date Type Department Care Team (Late st Contact Info) Description 09/22/2024 2:00 PM EST Clinical Support [facility] MED & PEDS [address] [place] [address] Stephanie Ling, MARCIO [address] [place] [address] 09/23/2024 1:00 PM EST Office Visit [facility] ADULT DENTAL [address] [place] [address] Geeta Jarquin [address] [place] [address] 12/09/2024 2:30 PM EDT Office Visit [facility] MED & PEDS [address] [place] [address] Woodrow Montalvo MD [address] [place] [address] Scheduled Orders Name Type Priority Associated Diagnoses Orde r Schedule Albumin, Random Urine W/Creatinine Lab Routine Type 2 diabetes mellitus without complication, without long-term current use of insulin ([facility]) Expected: 09/13/2024 (Approximate), Expires: 09/13/2025 documented as of this encounter Procedures Procedure Name Priority Date/Time Associated Diagnosis Comments POCT GLYCATED HEMOGLOBIN, TOTAL Routine 09/13/2024 2:35 PM EST Type 2 diabetes mellitus without complication, without long-term current use of insulin ([facility]) POCT GLUCOSE Routine 09/13/2024 2:35 PM EST Type 2 diabetes mellitus without complication, without long-term current use of insulin ([facility]) documented in this encounter Results * POCT HGB A1C (09/13/2024 2:35 PM EST) Hemoglobin A1C 5.7 4.0 - 6.0 % QC Media Lot # [id number] Lot# Expiration Date ,026 Blood 09/13/2024 2:35 PM EST Woodrow Montalvo MD POINT OF CARE TEST ENTER/ED IT ORDERABLES Final Result * POCT Glucose (09/13/2024 2:35 PM EST) Glucose Blood, POC 161 60 - 200 mg/dL QC Media Lot # [id number] Lot# Expiration Date 732,025 Blood Capillary blood specimen / Unknown 09/13/2024 2:35 PM EST Woodrow Montalvo MD POINT OF CARE TEST ENTER/ED IT ORDERABLES Final Result documented in this encounter Visit Diagnoses Diagnosis Type 2 diabetes mellitus without complication, without long-term current use of insulin ([facility])- Primary Primary hypertension Unspecified essential hypertension Dietary counseling Dietary surveillance and counseling Exercise counseling Class 2 severe obesity due to excess calories with serious comorbidity and body mass index (BMI) of 39.0 to 39.9 in adult ([facility]) Encounter for immunization documented in this encounter Additional Health Concerns Assessment Noted Time PHQ-9 Depression Total Score: 0 09/13/19 1:41 PM EST documented as of this encounter Care Teams Assessment Technician Relationship Specialty Start Date End Date Woodrow Montalvo MD [address] [place] [address] PCP - General Internal Medicine 01/01/18 documented as of this encounter
--- OUTSIDE RECORDS SUMMARY | 2024-09-13 17:43 | XMS_ITS | Encounter Summary ---
Author Organization [employer] Address [address] [facility] [address] [place] [address] Care Team Providers Care Cryptological Technician Name Role Phone Woodrow Montalvo MD Primary Care Provider [phone] Reason for Visit * Reason Onset Date Comments Med Refill 07/31/2022 Encounter Details Date Type Department Care Team (Late Contact Info) Description 07/31/2022 Refill [facility] MEDICINE [address] [place] [phone] Woodrow Montalvo MD [address] [place], [place] [phone] Chronic tension-type headache, not intractable (Primary Dx); Gastroesophageal reflux disease without esophagitis Social History Tobacco Use Types Packs/Day Years [...] encounter Miscellaneous Notes * Telephone Encounter - Tip Arora - 07/31/2022 4:02 PM EST Tc from pt requesting med refill Tramadol 50 mg documented in this encounter Plan of Treatment Upcoming Encounters Date Type Department Care Team (Late Contact Info) Description 09/22/2024 2:00 PM EST Clinical Support [facility] CHC MED & PEDS [address] [place], [place] [phone] Stephanie Ling, MARCIO [address] [place] [address] 09/23/2024 1:00 PM EST Office Visit [facility] ADULT DENTAL [address] [place] [address] Geeta Jarquin [address] [place] [address] 12/09/2024 2:30 PM EDT Office Visit [facility] MED & PEDS [address] [place] [address] Woodrow Montalvo MD [address] [place] [address] documented as of this encounter Visit Diagnoses Diagnosis Chronic tension-type headache, not intractable- Primary Chronic tension type headache Gastroesophageal reflux disease without esophagitis Esophageal reflux documented in this encounter Care Teams Cryptological Technician Relationship Specialty Start Date End Date Woodrow Montalvo MD [address] [place] [address] PCP - General Internal Medicine 01/01/18 documented as of this encounter
--- OUTSIDE RECORDS SUMMARY | 2024-09-13 17:43 | XMS_ITS | Encounter Summary ---
Author Organization [employer] Address [address] [facility] [address] 7[address] [place] [address] Care Team Providers Care Tightener Name Role Phone Woodrow Montalvo MD Primary Care Provider [phone] Reason for Visit * Reason Comments Med Refill Encounter Details Date Type Department Care Team ([facility] st Contact Info) Description 02/07/2024 Refill [facility] MED[facility]INE [address] [place] [address] Woodrow Montalvo MD [address] [place] [address] Chronic pain syndrome Social History Tobacco Use [...] [facility] MED & PEDS [address] [place] [address] Stephanie Ling, MARCIO [address] [place] [address] 09/23/2024 1:00 PM EST Office Visit [facility] ADULT DENTAL [address] [place] [address] Geeta Jarquin [address] [place] [address] 12/09/2024 2:30 PM EDT Office Visit [facility] MED & PEDS [address] [place] [address] Woodrow Montalvo MD [address] [place] [address] documented as of this encounter Visit Diagnoses Diagnosis Chronic pain syndrome documented in this encounter Additional Health Concerns Assessment Noted Time PHQ-9 Depression Total Score: 14 023 9:16 AM EDT documented as of this encounter Care Teams Tightener Relationship Specialty Start Date End Date Woodrow Montalvo MD [address] [place] [address] PCP - General Internal Medicine 01/01/18 documented as of this encounter
--- OUTSIDE RECORDS SUMMARY | 2024-09-13 17:43 | XMS_ITS | Encounter Summary ---
Author Organization [employer] Address [address] [facility] [address] [place] [address] Care Team Providers Care Composition Floor Setter Name Role Phone Woodorw Montalvo MD Primary Care Provider [phone] Encounter Details Date Type Department Care Team (Late st Contact Info) Description 02/10/2024 Orders Only [facility] CHC MED & PEDS [address] [place], [place] [phone] Woodrow Montalvo MD [address] [place], [place] [phone] Chronic pain syndrome Social History Tobacco Use [...] Description 09/22/2024 2:00 PM EST Clinical Support [facility] MED & PEDS [address] [place] [address] Stephanie Ling RN [address] [place] [address] 09/23/2024 1:00 PM EST Office Visit [facility] ADULT DENTAL [address] [place] [address] Geeta Jarquin [address] [place] [address] 12/09/2024 2:30 PM EDT Office Visit [facility] MED & PEDS [address] [place] [address] Woodrow Montalvo MD [address] [place] [address] documented as of this encounter Procedures Procedure Name Priority Date/Time Associated Diagnosis Comments CBC WITH AUTO DIFFERENTIAL Routine 06/09/2024 11:14 AM EST Chronic pain syndrome documented in this encounter Results * (ABNORMAL) CBC auto differential (06/09/2024 11:14 AM EST) White Blood Count 11.3(H) 4.8 - 10.8 X10*3/uL [facility] Red Blood Count 4.78 4.20 - 5.50 X10*6/uL [facility] Hemoglobin 14.3 12.0 - 16.0 g/dl [facility] Hematocrit 40.9 37.0 - 47.0 % [facility] Mean Corpuscular Volume 85.6 80.0 - 98.0 fL [facility] Mean Corpuscular Hemoglobin 29.9 27.0 - 33.0 pg [facility] Mean Corpuscular HGB Conc 35.0 31.0 - 35.0 g/dl [facility] Red Cell Distribution Width 13.4 11.0 - 16.0 % [facility] Platelet Count 309 160 - 400 X10*3/uL [facility] Mean Platelet Volume 9.5 9.4 - 12.3 fL [facility] Neutrophils Percent Auto 68.2 45 - 73 % [facility] Imm Gran Pct Auto 0.4 0.0 - 0.4 % [facility] Lymphocytes Percent Auto 24.9 20 - 40 % [facility] Monocytes Percent Auto 4.6 2 - 11 % [facility] Eosinophils Percent Auto 1.5 0 - 4 % [facility] Basophils Percent Auto 0.4 0 - 2 % [facility] NRBC Pct Auto 0.0 0.0 - 0.2 /100WBC [facility] Neutrophils Absolute Auto 7.7 2.0 - 8.3 x10*3/uL [facility] Imm Gran Abs Auto 0.05(H) 0.00 - 0.03 X10*3/uL [facility] Lymphocytes Absolute Auto 2.8 1.2 - 4.9 X10*3/uL [facility] Monocytes Absolute Auto 0.5 0.1 - 1.2 X10*3/uL [facility] Eosinophils Absolute Auto 0.2 0.0 - 0.4 X10*3/uL [facility] Basophils Absolute Auto 0.1 0.0 - 0.2 X10*3/uL [facility] NRBC Abs Auto 0.000 0.0 - 0.012 X10*3/uL [facility] 06/09/2024 11:1 4 AM EST 06/09/2024 11:20 AM EST us Generic External Data Provider LAB BLOOD ORDERAB LES Final Result [facility] [address] [place] [address] [phone] documented in this encounter Visit Diagnoses Diagnosis Chronic pain syndrome documented in this encounter Additional Health Concerns Assessment Noted Time PHQ-9 Depression Total Score: 14 023 9:16 AM EDT documented as of this encounter Care Teams Composition Floor Setter Relationship Specialty Start Date End Date Woodrow Montalvo MD [address] [place] [phone] PCP - General Internal Medicine 01/01/18 documented as of this encounter
--- OUTSIDE RECORDS SUMMARY | 2024-09-13 17:44 | XMS_ITS | Clinical Summary ---
Author Organization [employer] Address [address] [facility] [address] [place] [address] Care Team Providers Care Human Resource Adviser Name Role Phone Woodrow Montalvo MD Primary Care Provider [phone] Allergies No known active allergies Medications Elastic Bandages & Supports (Wrist Splint) [facility] 2 08/15/19 20 Active Brexpiprazole (Rexulti) 1 MG tablet Take 1 tablet by mouth. Active cetirizine (ZyrTEC) 10 MG tablet Take 1 tablet by mouth in the morning. As needed for allergies. 11/26/19 22 Active ketoconazole (NIZOral) 2 % cream Apply topically every 12 (twelve) hours. 10/03/19 22 Active Minoxidil 5 % solution Apply 1 mL topically. 2 times every day directly onto the scalp in the hair loss area 04/02/20 21 Active naloxone (Narcan) 4 mg/0.1 mL nasal spray Administer 0.1 mL into affected nostril(s). 04/14/20 22 Active omeprazole (PriLOSEC) [address] capsule Take 1 capsule by mouth. Before a meal 03/11/20 19 Active SUMAtriptan (Imitrex) 25 MG tablet Take 1 tablet by mouth. Once with fluids as early as possible after the onset of a migraine attack, may repeat after 2 hours if headache returns, Not to exceed 200mg in 24hours 12/14/19 22 Active zolpidem (Ambien) 10 MG tablet Take 1 tablet by mouth. Once as needed Active Nebulizers (Compressor/Neb ulizer) [facility] Active Blood Pressure kit Active FreeStyle lancetsIndicati ons:Type 2 diabetes mellitus without complication, without long-term current use of insulin ([facility]) APPLY 1 LANCET BY TO SKIN ROUTE EVERY DAY 100 each 11 08/28/19 23 Active Ventolin HFA 108 (90 Base) MCG/ACT inhalerIndicati ons:Mild intermittent asthma without complication INHALE 2 PUFFS EVERY 4 HOURS IF NEEDED FOR WHEEZING. 18 g 1 03/26/20 23 Active FREESTYLE LITE test strip USE 1 BY TO SKIN ROUTE 2 TIMES EVERY DAY 100 strip 6 05/08/20 23 Active sucralfate (Carafate) 1 g tabletIndicatio ns:Gastroesopha geal reflux disease without esophagitis TOME GINNA TABLETA POR VIA ORAL CUATRO VECES AL DOROTHY ON AN EMPTY STOMACH 1 HOUR BEFORE MEALS AND BED 120 tablet 3 07/21/19 24 Active metFORMIN (Glucophage) 500 MG tabletIndicatio ns:Type 2 diabetes mellitus with diabetic dermatitis ([facility]) TOME GINNA TABLETA DOS VECES AL DROOTHY CON LAS COMIDAS EN LA MANANA & EN LA NOCHE 180 tablet 1 08/31/19 24 Active diclofenac (Voltaren) 75 MG EC tabletIndicatio ns:Acute pain of left knee TOME GINNA TABLETA CADA 12 HORAS 60 tablet 09/28/19 24 Active Additional Information Patient not taking.Reported on 08/22/2024 triamcinolone (Kenalog) 0.1 % creamIndication s:Intertrigo Apply topically if needed in the morning and at bedtime (pain and swelling). 30 g 2 12/08/19 24 Active Mometasone Furoate (Asmanex HFA) 100 MCG/ACT aerosolIndicati ons:Mild persistent asthma with acute exacerbation Inhale 100 mcg in the morning and at bedtime. 13 g 11 12/08/19 24 Active senna-docusate (Senexon-S) 8.6-50 MG tablet TAKE 1 TABLET BY MOUTH EVERY MORNING 90 tablet 3 12/21/19 24 Active furosemide (Lasix) 20 MG tablet Take 1 tablet (20 mg) by mouth Once per day. 90 tablet 1 02/22/20 24 Active perphenazine 2 MG tablet TOME 1 TABLETA POR V A ORAL TODOS LOS D CUANDO SEA NECESARIO 02/20/20 24 Active fluticasone (Flonase) 50 MCG/ACT nasal spray USE ONE SPRAY IN EACH NOSTRIL ONCE DAILY 12/11/19 24 Active albuterol (2.5 MG/3ML) 0.083% nebulizer solution Take 3 mL by nebulization every 6 (six) hours. 75 mL 11 03/08/20 24 Active Alcohol Swabs (Alcohol Prep) 70 % pads APPLY TO THE SKIN ONCE 100 each 3 03/22/20 24 2024 Active atenolol (Tenormin) 25 MG tablet TAKE 1 TABLET BY MOUTH EVERY DAY 90 tablet 1 03/24/20 24 Active ketoconazole (NIZOral) 2 % shampooIndicati ons:Seborrhea capitis LATHER ONTO AFFECTED AREA(S), LEAVE IN PLACE FOR 5 MINUTES, THEN RINSE OFF WITH WATER- USE DAILY 120 mL 5 05/16/20 24 Active buPROPion XL (Wellbutrin XL) 150 MG 24 hr tablet TOME 1 TABLETA POR V A ORAL TODOS LOS D EN LA FREDY ELIE 05/25/20 24 Active estradiol (Divigel) gel Place 1 Application. (0.25 mg) on the skin Once per day. Apply to thigh each morning, alternate thighs 30 each 1 06/06/20 24 Active losartan (Cozaar) 25 MG tabletIndicatio ns:Primary hypertension Take 1 tablet (25 mg) by mouth Once per day. 30 tablet 11 06/24/20 24 2024 Active verapamil SR (Calan SR) 120 MG ER tabletIndicatio ns:Chronic tension-type headache, not intractable TAKE 1 TABLET (120 MG) BY MOUTH IN THE MORNING. EVERY DAY WITH FOOD 90 tablet 3 08/15/19 25 Active traMADol (Ultram) 50 MG tabletIndicatio ns:Chronic pain syndrome TAKE 1 TABLET BY MOUTH EVERY 8 HOURS IF NEEDED FOR SEVERE PAIN FOR UP TO 28 DAYS 84 tablet 08/31/19 25 Active semaglutide (Ozempic) 2 MG/1.5ML solution pen-injectorInd ications:Type 2 diabetes mellitus without complication, without long-term current use of insulin ([facility]) Inject 0.25 mg under the skin 1 (one) time per week. 1 each 12 09/13/19 25 Active verapamil SR (Calan SR) 120 MG ER tabletIndicatio ns:Chronic tension-type headache, not intractable TAKE 1 TABLET (120 MG) BY MOUTH IN THE MORNING. EVERY DAY WITH FOOD 90 tablet 3 07/17/20 23 2024 Discontinued traMADol (Ultram) 50 MG tabletIndicatio ns:Chronic pain syndrome TAKE 1 TABLET BY MOUTH EVERY 8 HOURS IF NEEDED FOR SEVERE PAIN FOR UP TO 28 DAYS 84 tablet 08/01/19 25 2024 Discontinued Active Problems Problem Noted Date Diagnosed Date Decreased libido 03/08/2024 Assessment & Plan (03/08/2024 10:55 AM EDT): Referral to Gynecology for further evaluation. Well woman exam 03/08/2024 Assessment & Plan (03/08/2024 10:54 AM EDT): Pt does not have to repeat because hysterectomy was not due to CA, it was due to AUB in the setting of Fibroids. Primary hypertension 09/03/2023 Overview (09/03/2023): Controlled No change DASH diet RTC 3 mths COVID-19 06/26/2023 Assessment & Plan (06/26/2023 3:21 PM EST): Patient that presented visit with complaints of URI symptoms tested POSITIVE for Rap. COVID. Patient will be prescribed Paxlovid 300/100. Upper respiratory tract infection 06/26/2023 Elevated blood pressure reading 06/26/2023 Assessment & Plan (06/26/2023 3:23 PM EST): Uncontrolled: patient presented visit with an elevated blood pressure with readings of 160/100 mmHg. Recommended to take blood pressure medications as soon as possible. Advised to keep monitoring at home, and bring readings upon next office visit. - Patient has blood pressure retaken at the time of visit with readings of 132/84 mmHg Chronic idiopathic constipation 10/16/2022 Assessment & Plan (10/16/2022 9:52 AM EDT): Hemorrhoid resolved, but lately she has been having episode of constipation, will order sennokot, told to increase water intake and fiber in diet, pending gi evaluation Encounter for screening colonoscopy 09/10/2022 Assessment & Plan (09/10/2022 12:39 PM EST): Will refer to GI for screening colonoscopy Head ache 08/01/2022 PTSD (post-traumatic stress disorder) 06/23/2022 Bipolar disorder 06/23/2022 Blurring of visual image 06/04/2022 Type 2 diabetes mellitus 01/09/2021 Asthma 12/23/2013 Chronic neck pain 08/09/2013 Uterine leiomyoma 03/09/2012 Gastroesophageal reflux disease 01/02/2012 Hemorrhoids 01/02/2012 Assessment & Plan (09/10/2022 12:38 PM EST): Reinforced lifestyle changes, increase fiber, she has docusate as stool softener, will provide rectal hydrocortisone for relief of symptoms Encounters Date Type Department Care Team Description 09/13/2024 1:30 PM EST Office Visit [facility] [address] [place] [address] Woodrow Montalvo MD Type 2 diabetes mellitus without complication, without long-term current use of insulin ([facility]) (Primary Dx); Primary hypertension; Dietary counseling; Exercise counseling; Class 2 severe obesity due to excess calories with serious comorbidity and body mass index (BMI) of 39.0 to 39.9 in adult (CMS/HCC); Encounter for immunization 09/13/2024 Travel 09/09/2024 Telephone [facility] [address] [place] [address] Woodrow Montalvo MD chartprep 08/30/2024 Refill [facility] [address] [place] [address] Woodrow Montalvo MD Chronic pain syndrome 08/28/2024 Refill [facility] [address] [place], [place] [phone] Carly Tejeda CNM 08/22/2024 1:00 PM EST Office Visit [facility] ADULT DENTAL [address] [place] [address] Gisele Garces 08/13/2024 Refill [facility] [address] [place] [address] Woodrow Montalvo MD Chronic tension-type headache, not intractable 08/08/2024 Refill [facility] [address] [place] [address] Carly Tejeda CNM 08/02/2024 Telephone [facility] [address] [place] [address] Woodrow Montalvo MD Chart Prep 07/31/2024 Refill [facility] [address] [place] [address] Woodrow Montalvo MD Chronic pain syndrome 07/29/2024 2:30 PM EST Office Visit [facility] D[facility] [address] [place] [phone] Anita Pinto DDS 07/06/2024 3:00 PM EST Office Visit [facility] [address] [place] [address] Anita Pinto DDS 07/05/2024 1:00 PM EST Clinical Support [facility] [address] [place] [address] Stephanie Ling RN Back pain, unspecified back location, unspecified back pain laterality, unspecified chronicity 07/05/2024 Telephone [facility] [address] [place] [address] Stephanie Lnig RN 07/05/2024 Travel 07/04/2024 Telephone [facility] [address] [place] [address] Woodrow Montalvo MD 07/04/2024 Telephone [facility] [address] [place] [address] Woodrow Montalvo MD Results 07/03/2024 Refill [facility] [address] [place] [address] Woodrow Montalvo MD Chronic pain syndrome 06/24/2024 3:45 PM EST Office Visit [facility] [address] [place] [address] Woodrow Montalvo MD Type 2 diabetes mellitus without complication, without long-term current use of insulin ([facility]) (Primary Dx); Primary hypertension 06/24/2024 Travel 06/20/2024 1:00 PM EST Office Visit [facility] ADULT DENT[facility] [address] [place] [address] Geronimo Flannery, DMD Dental abscess (Primary Dx) 06/20/2024 Telephone [facility] [address] [place], [place] [phone] EdgardGeronimo krishnamurthy, DMD pain on tooth 06/18/2024 Refill [facility] [address] [place], [place] [phone] Woodrow Montalvo MD Chronic pain syndrome 06/13/2024 Telephone [facility] [address] [place], [place] [phone] Meghan Lindsay RN ER Follow-up from Last 3 Months Immunizations Name Administration Dates Next Due Influenza Injectable Quadriv alant Preservative Free IIV4 MDCK 04/20/2019 Influenza injectable quadriv alent IIV4 with preservative 09/10/2017 Influenza injectable quadriv alent preservative free 04/25/2022,04/15/2021,03/18/2018,2014 Influenza, IIV3, injectable 04/25/2014, 1,04/18/2009 Influenza, Split (incl. rosaura fied surface antigen) 05/20/2013 Moderna Covid-19 Vaccine 12+ 12/03/2020 Pfizer Covid-19 Vaccine 12+ 09/13/2024 Pneumococcal Conjugate PCV 20 12/08/2023 TD (adult), 2 Lf tetanus tox oid, preservative free, adsorbed 03/22/2008 Tdap 12/08/2023,08/09/2013 Family History Medical History Relation Name Comments Leukemia Brother Heart disease Father Anxiety disorder Mother Depression Mother Diabetes Mother Relation Name Status Comments Brother Father Mother Social History Tobacco Use Types Packs/Day Years Used Date Smoking Tobacco: Former Cigarettes Passive Smoke Exposure: Past Smokeless Tobacco: Never Tobacco Cessation:Counseling Given: Not Answered Alcohol Use Standard Drinks/Week Comments Not Currently [...] not to disclose 2021 10:17 AM EDT Last Filed Vital Signs Vital Sign Reading [...] Mass Index 39.02 09/13/2024 1:40 PM EST Plan of Treatment Upcoming Encounters Date Type Department Care Team (Late st Contact Info) Description 09/22/2024 2:00 PM EST Clinical Support [facility] [address] [place] [address] Stephanie Ling RN [address] [place] [address] 09/23/2024 1:00 PM EST Office Visit [facility] ADULT D[facility] [address] [place] [address] Raquel Jarquinzaidpreet [address] [place] [address] 12/09/2024 2:30 PM EDT Office Visit [facility] [address] [place] [address] Woodrow Montalvo MD [address] [place] [address] Health Maintenance Due Date Last Done Comments CT Colonography 1973 Colonoscopy 1973 FIT 1973 FOBT 1973 HIV Screening 1973 Sigmoidoscopy 1973 Eye Exam 12/05/1983 Alcohol/Substance Use Screening 1985 Family Planning (PISQ) 1988 Hepatitis C Screening 12/05/1991 Hepatitis B Vaccines (1 of 3 - 19+ 3-dose series) 1992 Diabetes: Urine Protein Screening 10/01/2022 10/01/2021 Zoster Vaccines (1 of 2) 12/05/2023 Influenza Vaccine (#1) 2024 , 04/15/2021, 04/20/2019, Additional history exists Mammogram 01/22/2025 01/23/2024, 08/20, 08/31/2019, Additional history exists Dental Oral Exam 02/20/2025 08/22/2024, , 02/16/2018, Additional history exists Dental Prophylaxis 02/20/2025 08/22/2024 Diabetes: Hemoglobin A1C 03/13/2025 025, 06/24/2024, 12/08/2023, Additional history exists Lipid Panel 06/24/2025 06/24/2024, 10/01/2021 Dental X-Ray: Bitewings 08/23/2025 08/22/19, 05/17/2024, 08/02/2019, Additional history exists Depression Screening 09/13/2025 09/13/2024, 09/13/19 Diabetes: Foot Exam 09/13/2025 09/13/2024, 09/03/2023, 09/03/2023, Additional history exists SDOH Screening 09/13/2025 09/13/2024 Tobacco Screening 09/13/2025 09/13/2024 Colorectal Cancer Screening 12/15/2026 FIT DNA/Cologuard 12/15/2026 12/16/2023 Dental X-Ray: Full Mouth 08/23/2027 08/22/2024, 01/19 DTaP/Tdap/Td Vaccines (3 - Td or Tdap) 12/07/2033 12/08/2023, 08/09/2013, 03/22/2008 RSV Patients and Patients Aged 60 years or older (1 - 1-dose 75+ series) 2048 Pneumococcal Vaccine: 50+ Years Completed 12/08/2023 COVID-19 Vaccine Completed 09/13/2024, , 12/03/2020 HIB Vaccines Aged Out No longer eligi ble based on patient's age to complete this topic HPV Vaccines Aged Out No longer eligi ble based on patient's age to complete this topic Hepatitis A Vaccines Aged Out No long er eligible based on patient's age to complete this topic IPV Vaccines Aged Out No longer eligi ble based on patient's age to complete this topic Meningococcal Vaccine Aged Out No ashlyn colin eligible based on patient's age to complete this topic RSV under 20 months Aged Out No longe r eligible based on patient's age to complete this topic Rotavirus Vaccines Aged Out No longer eligible based on patient's age to complete this topic Procedures Procedure Name Priority Date/Time Associated Diagnosis Comments POCT GLYCATED HEMOGLOBIN, TOTAL Routine 09/13/2024 2:35 PM EST Type 2 diabetes mellitus without complication, without long-term current use of insulin (CMS/HCC) POCT GLUCOSE Routine 09/13/2024 2:35 PM EST Type 2 diabetes mellitus without complication, without long-term current use of insulin (CMS/HCC) COMPREHENSIVE ORAL EVALUATION - NEW OR ESTABLISHED PATIENT Routine 08/22/2024 1:00 PM EST INTRAORAL - COMPLETE SERIES OF RADIOGRAPHIC IMAGES Routine 08/22/2024 1:00 PM EST ORAL HYGIENE INSTRUCTIONS Routine 08/22/2024 1:00 PM EST CASE PRESENTATION, DETAILED AND EXTENSIVE TREATMENT PLANNING Routine 08/22/2024 1:00 PM EST PROPHYLAXIS - ADULT Routine 08/22/2024 1 :00 PM EST 30 DO RESIN-BASED COMPOSITE - 2 SURF, POSTERIOR Routine 07/29/2024 2:30 PM EST 10 DL RESIN-BASED COMPOSITE - 2 SURF, ANTERIOR Routine 07/06/2024 3:00 PM EST 11 L RESIN-BASED COMPOSITE - 1 SURF, ANTERIOR Routine 07/06/2024 3:00 PM EST POCT FARNAZ-14 URINE DRUG SCREEN Routine 07/05/2024 1:10 PM EST Back pain, unspecified back location, unspecified back pain laterality, unspecified chronicity LIPID PANEL, STANDARD Routine 06/24/2024 4:17 PM EST Type 2 diabetes mellitus without complication, without long-term current use of insulin (CMS/HCC) Primary hypertension POCT GLYCATED HEMOGLOBIN, TOTAL Routine 06/24/2024 4:13 PM EST Type 2 diabetes mellitus without complication, without long-term current use of insulin (CMS/HCC) POCT GLUCOSE Routine 06/24/2024 4:12 PM EST Type 2 diabetes mellitus without complication, without long-term current use of insulin (CMS/HCC) CASE PRESENTATION, DETAILED AND EXTENSIVE TREATMENT PLANNING Routine 06/20/2024 1:00 PM EST 30 ENDODONTIC THERAPY, MOLAR TOOTH Routine 06/20/2024 1:00 PM EST HM MAMMOGRAPHY Routine 01/23/2024 LAB COLOGUARD?? COLON CANCER SCREEN Routine 12/16/2023 6:11 AM EDT Colon cancer screening ALBUMIN, RANDOM URINE W/CREATININE Routine 10/01/2021 9:05 AM EDT from Last 3 Months or Most Recently Relevant to Health Maintenance Results * POCT HGB A1C (09/13/2024 2:35 PM EST) Only the most recent of2 resultswithin the time period is included. Hemoglobin A1C 5.7 4.0 - 6.0 % QC Media Lot # [id number] Lot# Expiration Date Blood 09/13/2024 2:35 PM EST Woodrow Montalvo MD POINT OF CARE TEST ENTER/ED IT ORDERABLES Final Result * POCT Glucose (09/13/2024 2:35 PM EST) Only the most recent of2 resultswithin the time period is included. Glucose Blood, POC 161 60 - 200 mg/dL QC Media Lot # [id number] Lot# Expiration Date ,025 Blood Capillary blood specimen / Unknown 09/13/2024 2:35 PM EST Woodrow Montalvo MD POINT OF CARE TEST ENTER/ED IT ORDERABLES Final Result * POCT FARNAZ-14 Urine Drug Screen (07/05/2024 1:10 PM EST) THC Positive Urine Urine specimen obtained by clean catch procedure / Unknown 07/05/2024 1:10 PM EST Woodrow Montalvo MD POINT OF CARE TEST ENTER/ED IT ORDERABLES Final Result * (ABNORMAL) Lipid Panel, Standard (06/24/2024 4:17 PM EST) Triglycerides 128 <150 mg/dL [facility] Comment:Desirable Triglyceri de: less than 150 mg/dLBorderline High Triglyceride 150-199 mg/dLHigh Triglyceride: 200-499 mg/dLVery High Triglyceride: greater than or equal to 5OO mg/dL Cholesterol 162 <200 mg/dL [facility] Comment:Desirable Cholestero l: less than 200 mg/dLBorderline High Cholesterol: 200-239 mg/dLHigh Cholesterol: greater than 239 mg/dL LDL Cholesterol Calculated 105(H) <100 mg/dL [facility] Comment:Desirable LDL: less than 100 mg/dLNear Optimal/Above Optimal LDL: 110- 129 mg/dLBorderline High LDL: 130-159 mg/dLHigh LDL: 160-189 mg/dLVery High LDL: greater than or equal to 190 mg/dL HDL Cholesterol 32(L) >40 mg/dL [facility] Comment:Desirable HDL: great er than 40 mg/dL Note: This HDL assay may give artificially low results in patients with liver disease. Blood Venous blood specimen / Unknown 06/24/2024 4:17 PM EST 06/24/2024 5:39 PM EST us Woodrow Montalvo MD LAB BLOOD ORDERABLES Final Result [facility] [address] [place] [phone] * Mammography (01/23/2024) Mammogram BIRADS 1 Normal, Abnormal, BIRADS 1 , BIRADS 2 Anatomical Region Laterality Modality Other us Woodrow Montalvo MD HEALTH MAINTENANCE Final Re sult * Cologuard?? colon cancer screening (12/16/2023 6:11 AM EDT) Cologuard Result Negative Negative 12/20/19 24 8:03 AM EDT [facility] (CLIA #:[id number]) Comment: NEGATIVE TEST RESULT. A negative Cologuard result indicates a low likelihood that a colorectal cancer (CRC) or advanced adenoma (adenomatous polyps with more advanced pre-malignant features) ??is present. The chance that a person with a negative Cologuard test has a colorectal cancer is less than 1 in 1500 (negative predictive value >99.9%) or has an ??advanced adenoma is less than ??5.3% (negative predictive value 94.7%). These data are based on a prospective cross-sectional study of 10,000 individuals at average risk for colorectal cancer who were screened with both Cologuard and colonoscopy. (Chantelle Flores et al, N Engl J Med 2014;370(14):1286- 1297) The normal value (reference range) for this assay is negative. COLOGUARD RE-SCREENING RECOMMENDATION: Periodic colorectal cancer screening is an important part of preventive healthcare for asymptomatic individuals at average risk for colorectal cancer. ??Following a negative Cologuard result, the [place] [employer] Society and U.S. Multi-Society Task Force screening guidelines recommend a Cologuard re-screening interval of 3 years. References: [place] [employer] Guideline for Colorectal Cancer Screening: https://www.cancer.org/cancer/lysqh-scsydi-qcgumo/khgaceaef-neuasddtv-qahjaup/ac s-rec ommendations.html.; Ger DK, Sly CR, Benji LandisK, Colorectal Cancer Screening: Recommendations for Physicians and Patients from the U.S. Multi-Society Task Force on Colorectal Cancer Screening , Am J Gastroenterology 2017; 112:0788-9741. TEST DESCRIPTION: Composite algorithmic analysis of stool DNA-biomarkers with hemoglobin immunoassay. ?? Quantitative values of individual biomarkers are not reportable and are not associated with individual biomarker result reference ranges. Cologuard is intended for colorectal cancer screening of adults of either sex, 45 years or older, who are at average-risk for colorectal cancer (CRC). Cologuard has been approved for use by the U.S. FDA. The performance of Cologuard was established in a cross sectional study of average-risk adults aged 50-84. Cologuard performance in patients ages 45 to 49 years was estimated by sub-group analysis of near-age groups. Colonoscopies performed for a positive result may find as the most clinically significant lesion: colorectal cancer [4.0%], advanced adenoma (including sessile serrated polyps greater than or equal to 1cm diameter) [20%] or non- advanced adenoma [31%]; or no colorectal neoplasia [45%]. These estimates are derived from a prospective cross-sectional screening study of 10,000 individuals at average risk for colorectal cancer who were screened with both Cologuard and colonoscopy. (Chantelle Cruz al, N Engl J Med 2014;370(14):0729-0503.) Cologuard may produce a false negative or false positive result (no colorectal cancer or precancerous polyp present at colonoscopy follow up). A negative Cologuard test result does not guarantee the absence of CRC or advanced adenoma (pre-cancer). The current Cologuard screening interval is every 3 years. ([place] [employer] and U.S. Multi-Society Task Force). Cologuard performance data in a 10,000 patient pivotal study using colonoscopy as the reference method can be accessed at the following location: www.iDoc24/results. Additional description of the Cologuard test process, warnings and precautions can be found at www.iSquarerd.ReferStar. Stool specimen (specimen) 12/16/2023 6:11 AM EDT 12/17/2023 10:48 AM EDT us Woodrow Montalvo MD LAB MOLECULAR DIAGNOSTICS O RDERABLES Final Result [facility] (CLIA #:[id number]) [address] [place] [address], * ALBUMIN, RANDOM URINE W/CREATININE (10/01/2021 9:05 AM EDT) Microalbumin Urine <0.2 See Note: mg/dL [facility] Comment: Reference Range: ?? Reference Range Not established Microalb/Creat Ratio NOTE <30 mcg/mg creat [facility] Comment: NOTE: The urine albumin value is less than ?? 0.2 mg/dL therefore we are unable to calculate ?? excretion and/or creatinine ratio. ?? The ADA defines abnormalities in albumin excretion as follows: ?? Albuminuria Category ?Result (mcg/mg creatinine) ?? Normal to Mildly increased ?? <30 Moderately increased ? 30-299 ?? Severely increased ? > OR = 300 ?? The ADA recommends that at least two of three specimens collected within a 3-6 month period be abnormal before considering a patient to be within a diagnostic category. Creatinine, Urine 83 20 - 275 mg/dL [facility] [facility] 10/01/2021 9:05 AM EDT us Woodrow Montalvo MD LAB URINE ORDERABLES Final Result [facility] [address] from Last 3 Months or Most Recently Relevant to Health Maintenance [place] [address] [facility] MEDICAID STAND ADULT Care Teams Human Resource Adviser Relationship Specialty Start Date End Date Woodrow Montalvo MD [address] [place] [address] PCP - General Internal Medicine 01/01/18
--- OUTSIDE RECORDS SUMMARY | 2024-09-13 17:44 | XMS_ITS | Encounter Summary ---
Author Organization [email or web address] Address [address] [facility] [address] 7t [place] [address] Care Team Providers Care Protective Services Case Worker Name Role Phone Woodrow Montalvo MD Primary Care Provider [phone] Reason for Visit * Reason Comments Med Refill Encounter Details Date Type Department Care Team ([facility] st Contact Info) Description 08/08/2024 Refill [facility] MEDICINE [address] [place] [address] Carly Tejeda, NICOL 230 [place] [address] Social History Tobacco Use Types Packs/Day Years [...] Telephone Encounter - Carly Tejeda CNM - 08/11/2024 11:43 AM EST Needs followup appt with me! documented in this encounter Plan of Treatment Upcoming Encounters Date Type Department Care Team (Late st Contact Info) Description 09/22/2024 2:00 PM EST Clinical Support [facility] MED & PEDS 505 [place] [address] Stephanie Ling RN 505 [place] [address] 09/23/2024 1:00 PM EST Office Visit [facility] ADULT DENTAL 505 [place] [address] JarquinGeeta 505 [place] [address] 12/09/2024 2:30 PM EDT Office Visit [facility] MED [facility] PED[facility] 505 [place] [address] Woodrow Montalvo MD 505 [place] [address] documented as of this encounter Visit Diagnoses Not on filedocumented in this encounter Additional Health Concerns Assessment Noted Time PHQ-9 Depression Total Score: 14 023 9:16 AM EDT documented as of this encounter Care Teams Protective Services Case Worker Relationship Specialty Start Date End Date Woodrow Montalvo MD 505 [place] [address] PCP - General Internal Medicine 01/01/18 documented as of this encounter
[2024-09-13 18:31] LABS: Microalbum/Creatinine Ratio Ur 6.3 ug/mg cr (<30)
== END 2024-09-13 14:10 | disposition home or self-care (01) ==
LOC: HO.CHCLDS 14:09
PROVIDERS: Visit Provider Internal Medicine
DX: E11.9 Type 2 diabetes mellitus without complications (principal)
CPT/HCPCS: 82043; 82570

== ENCOUNTER 2024-10-19 13:56 | Outpatient (REF) | payer MEDICAID, SELFPAY ==
[2024-10-19 16:11] LABS: MANUAL DIFF FLAG NO
[2024-10-19 16:17] LABS: Basophils Percent Auto 0.3 % (0-2); Eosinophils Absolute Auto 0.2 X10*3/uL (0.0-0.4); Eosinophils Percent Auto 1.4 % (0-4); Hemoglobin 14.8 g/dl (12.0-16.0); Imm Gran Abs Auto 0.05 X10*3/uL (0.00-0.03); Imm Gran Pct Auto 0.4 % (0.0-0.4); Lymphocytes Absolute Auto 2.9 X10*3/uL (1.2-4.9); Lymphocytes Percent Auto 22.3 % (20-40); Mean Corpuscular HGB Conc 34.4 g/dl (31.0-35.0); Mean Corpuscular Hemoglobin 29.8 pg (27.0-33.0); Mean Corpuscular Volume 86.7 fL (80.0-98.0); Mean Platelet Volume 10.2 fL (9.4-12.3); Monocytes Absolute Auto 0.6 X10*3/uL (0.1-1.2); Monocytes Percent Auto 4.5 % (2-11); Neutrophils Absolute Auto 9.4 x10*3/uL (2.0-8.3); Neutrophils Percent Auto 71.1 % (45-73); Platelet Count 392 X10*3/uL (160-400); Red Blood Count 4.96 X10*6/uL (4.20-5.50); Red Cell Distribution Width 13.1 % (11.0-16.0); White Blood Count 13.2 X10*3/uL (4.8-10.8)
[2024-10-19 16:25] LABS: Estimated Average Glucose 114 mg/dL; Hemoglobin A1C 150.9132 umol/L; Hemoglobin A1c % 5.6 % (<6.0); Total Hemoglobin (HGBA1C) 3970.7652 umol/L
--- OUTSIDE RECORDS SUMMARY | 2024-10-19 16:43 | XMS_ITS | Encounter Summary ---
Author Organization [employer] Address [address] [facility] [address] 7t [place] [address] Care Team Providers Care Teaching Specialists Name Role Phone Woodrow Montalvo MD Primary Care Provider [phone] Reason for Visit * Reason Onset Date Comments Med Refill 02/10/2024 Encounter Details Date Type Department Care Team ([facility] st Contact Info) Description 02/10/2024 Telephone [facility] MEDICINE 230 [place] [address] Woodrow Montalvo MD 505 [place], [place] [phone] Med Refill Social History Tobacco Use Types [...] encounter Miscellaneous Notes * Telephone Encounter - Stephanie Brown - 02/10/2024 11:42 AM EDT TC from pt requesting medication refill. Medications needing refill : traMADol (Ultram) 50 MG tablet To be sent to: [facility]/pharmacy #[id number] documented in this encounter Plan of Treatment Upcoming Encounters Date Type Department Care Team (Late st Contact Info) Description 10/21/2024 1:00 PM EDT Office Visit [facility] ADULT DENTAL 505 [place] [address] Geeta Jarquin 505 [place] [address] 12/09/2024 2:30 PM EDT Office Visit [facility] MED & PEDS 505 [place] [address] Woodrow Montalvo MD 505 [place] [address] 12/22/2024 2:00 PM EDT Clinical Support [facility] MED & PEDS 505 [place] [address] Stephanie Ling RN 505 [place] [address] documented as of this encounter Visit Diagnoses Not on filedocumented in this encounter Additional Health Concerns Assessment Noted Time PHQ-9 Depression Total Score: 14 023 9:16 AM EDT documented as of this encounter Care Teams Teaching Specialists Relationship Specialty Start Date End Date Woodrow Montalvo MD [address] [place] [address] PCP - General Internal Medicine 01/01/18 documented as of this encounter
--- OUTSIDE RECORDS SUMMARY | 2024-10-19 16:43 | XMS_ITS | Encounter Summary ---
Author Organization [employer] Address [address] 7t [place] [address] Care Team Providers Care Restaurant Team Member Name Role Phone Woodrow Montalvo MD Primary Care Provider [phone] Reason for Visit * Reason Comments Med Refill Encounter Details Date Type Department Care Team ([facility] st Contact Info) Description 02/07/2024 Refill [facility] MEDICINE 230 [place] [address] Woodrow Montalvo MD 505 [place] [address] Chronic pain syndrome Social History Tobacco Use [...] Description 10/21/2024 1:00 PM EDT Office Visit [facility] ADULT DENTAL 505 [place] [address] Geeta Jarquin 505 [place] [address] 12/09/2024 2:30 PM EDT Office Visit [facility] MED & PEDS [address] [place] [address] Woodrow Montalvo MD 505 [place] [address] 12/22/2024 2:00 PM EDT Clinical Support [facility] MED & PEDS 505 [place] [address] Stephanie Ling, MARCIO 505 [place] [address] documented as of this encounter Visit Diagnoses Diagnosis Chronic pain syndrome documented in this encounter Additional Health Concerns Assessment Noted Time PHQ-9 Depression Total Score: 14 023 9:16 AM EDT documented as of this encounter Care Teams Restaurant Team Member Relationship Specialty Start Date End Date Woodrow Montalvo MD 505 [place] [address] PCP - General Internal Medicine 01/01/18 documented as of this encounter
--- OUTSIDE RECORDS SUMMARY | 2024-10-19 16:43 | XMS_ITS | Encounter Summary ---
Author Organization [employer] Address [address] [facility] [address] 7t [place] [address] Care Team Providers Care Heat Treat Supervisor Name Role Phone Woodrow Montalvo MD Primary Care Provider [phone] Encounter Details Date Type Department Care Team (Late st Contact Info) Description 02/10/2024 Orders Only [facility] MED & PEDS [address] [place], [place] [phone] Woodrow Montalvo MD 505 [place], [place] [phone] Chronic pain syndrome Social History Tobacco Use [...] Description 10/21/2024 1:00 PM EDT Office Visit [facility] ADULT DENTAL [address] [place] [address] Geeta Jarquin 505 [place] [address] 12/09/2024 2:30 PM EDT Office Visit [facility] MED & PEDS 505 [place] [address] Woodrow Montalvo MD 505 [place] [address] 12/22/2024 2:00 PM EDT Clinical Support [facility] MED & PEDS [address] [place] [address] Stephanie Ling RN 505 [place] [address] documented as of this encounter Procedures Procedure Name Priority Date/Time Associated Diagnosis Comments CBC WITH AUTO DIFFERENTIAL Routine 06/09/2024 11:14 AM EST Chronic pain syndrome documented in this encounter Results * (ABNORMAL) CBC auto differential (06/09/2024 11:14 AM EST) White Blood Count 11.3(H) 4.8 - 10.8 X10*3/uL [facility] Red Blood Count 4.78 4.20 - 5.50 X10*6/uL [facility] Hemoglobin 14.3 12.0 - 16.0 g/dl [facility] Hematocrit 40.9 37.0 - 47.0 % [facility] Mean Corpuscular Volume 85.6 80.0 - 98.0 fL [facility] Mean Corpuscular Hemoglobin 29.9 27.0 - 33.0 pg [facility] Mean Corpuscular HGB Conc 35.0 31.0 - 35.0 g/dl [facility] Red Cell Distribution Width 13.4 11.0 - 16.0 % [facility] Platelet Count 309 160 - 400 X10*3/uL [facility] Mean Platelet Volume 9.5 9.4 - 12.3 fL [facility] Neutrophils Percent Auto 68.2 45 - 73 % [facility] Imm Gran Pct Auto 0.4 0.0 - 0.4 % [facility] Lymphocytes Percent Auto 24.9 20 - 40 % [facility] Monocytes Percent Auto 4.6 2 - 11 % [facility] Eosinophils Percent Auto 1.5 0 - 4 % [facility] Basophils Percent Auto 0.4 0 - 2 % [facility] NRBC Pct Auto 0.0 0.0 - 0.2 /100WBC [facility] Neutrophils Absolute Auto 7.7 2.0 - 8.3 x10*3/uL [facility] Imm Gran Abs Auto 0.05(H) 0.00 - 0.03 X10*3/uL [facility] Lymphocytes Absolute Auto 2.8 1.2 - 4.9 X10*3/uL [facility] Monocytes Absolute Auto 0.5 0.1 - 1.2 X10*3/uL [facility] Eosinophils Absolute Auto 0.2 0.0 - 0.4 X10*3/uL [facility] Basophils Absolute Auto 0.1 0.0 - 0.2 X10*3/uL [facility] NRBC Abs Auto 0.000 0.0 - 0.012 X10*3/uL [facility] 06/09/2024 11:1 4 AM EST 06/09/2024 11:20 AM EST us Generic External Data Provider LAB BLOOD ORDERAB LES Final Result [facility] [address] [place] [address] [phone] documented in this encounter Visit Diagnoses Diagnosis Chronic pain syndrome documented in this encounter Additional Health Concerns Assessment Noted Time PHQ-9 Depression Total Score: 14 10/16/ 023 9:16 AM EDT documented as of this encounter Care Teams Heat Treat Supervisor Relationship Specialty Start Date End Date Woodrow Montalvo MD [address] [place] [address] PCP - General Internal Medicine 01/01/18 documented as of this encounter
--- OUTSIDE RECORDS SUMMARY | 2024-10-19 16:43 | XMS_ITS | Encounter Summary ---
Author Organization [employer] Address [address] 7t [place] [address] Care Team Providers Care Coffee Grinder Name Role Phone Woodrow Montalvo MD Primary Care Provider [phone] Reason for Visit * Reason Onset Date Comments appt missed 05/19/2023 Encounter Details Date Type Department Care Team ([facility] st Contact Info) Description 05/19/2023 Telephone [facility] ADULT DENTAL 230 [place] [address] Geronimo Flannery, DMD 505 [place] [address] appt missed Social History Tobacco Use Types [...] Description 10/21/2024 1:00 PM EDT Office Visit [facility] ADULT DENTAL 505 [place] [address] Geeta Jarquin 505 [place] [address] 12/09/2024 2:30 PM EDT Office Visit [facility] MED & PEDS 505 [place] [address] Woodrow Montalvo MD 505 [place] [address] 12/22/2024 2:00 PM EDT Clinical Support [facility] MED & PEDS 505 [place] [address] Stephanie Ling RN 505 [place] [address] documented as of this encounter Visit Diagnoses Not on filedocumented in this encounter Additional Health Concerns Assessment Noted Time PHQ-9 Depression Total Score: 14 023 9:16 AM EDT documented as of this encounter Care Teams Coffee Grinder Relationship Specialty Start Date End Date Woodrow Montalvo MD [address] [place] [address] PCP - General Internal Medicine 01/01/18 documented as of this encounter
--- OUTSIDE RECORDS SUMMARY | 2024-10-19 16:43 | XMS_ITS | Encounter Summary ---
Author Organization [employer] Address [address] 7t [place] [address] Care Team Providers Care Senior Loan Processor Name Role Phone Woodrow Montalvo MD Primary Care Provider [phone] Reason for Visit * Reason Onset Date Comments Med Refill 05/22/2023 Encounter Details Date Type Department Care Team ([facility] st Contact Info) Description 05/22/2023 Telephone [facility] MEDICINE 230 [place] [address] Woodrow Montalvo MD 505 [place], [place] [phone] Med Refill Social History Tobacco Use Types [...] Description 10/21/2024 1:00 PM EDT Office Visit [facility] ADULT DENTAL 505 [place] [address] Geeta Jarquin 505 [place] [address] 12/09/2024 2:30 PM EDT Office Visit [facility] MED & PEDS [address] [place] [address] Woodrow Montalvo MD 505 [place] [address] 12/22/2024 2:00 PM EDT Clinical Support [facility] MED & PEDS 505 [place] [address] Stephanie Ling RN 505 [place] [address] documented as of this encounter Visit Diagnoses Not on filedocumented in this encounter Additional Health Concerns Assessment Noted Time PHQ-9 Depression Total Score: 14 023 9:16 AM EDT documented as of this encounter Care Teams Senior Loan Processor Relationship Specialty Start Date End Date Woodrow Montalvo MD [address] [place] [address] PCP - General Internal Medicine 01/01/18 documented as of this encounter
--- OUTSIDE RECORDS SUMMARY | 2024-10-19 16:43 | XMS_ITS | Encounter Summary ---
Author Organization [employer] Address [address] [facility] 7t [place] [address] Care Team Providers Care Municipal Court Magistrate Name Role Phone Woodrow Montalvo MD Primary Care Provider [phone] Reason for Visit * Reason Comments Med Change Request Encounter Details Date Type Department Care Team ([facility] Contact Info) Description 12/10/2023 Refill [facility] MED & PEDS 505 [place], [place] [phone] Woodrow Montalvo MD 505 [place] [address] Cough Social History Tobacco Use Types Packs/Day [...] Description 10/21/2024 1:00 PM EDT Office Visit [facility] ADULT DENTAL 505 [place] [address] Geeta Jarquin 505 [place] [address] 12/09/2024 2:30 PM EDT Office Visit [facility] MED & PEDS [address] [place], [place] [phone] Woodrow Montalvo MD 505 [place] [address] 12/22/2024 2:00 PM EDT Clinical Support [facility] MED & PEDS 505 [place] [address] Stephanie Ling, MARCIO 505 [place] [address] documented as of this encounter Visit Diagnoses Diagnosis Cough documented in this encounter Additional Health Concerns Assessment Noted Time PHQ-9 Depression Total Score: 14 023 9:16 AM EDT documented as of this encounter Care Teams Municipal Court Magistrate Relationship Specialty Start Date End Date Woodrow Montalvo MD 505 [place] [address] PCP - General Internal Medicine 01/01/18 documented as of this encounter
--- OUTSIDE RECORDS SUMMARY | 2024-10-19 16:43 | XMS_ITS | Encounter Summary ---
Author Organization [employer] Address [address] [facility] 7t [place] [address] Care Team Providers Care Coroner'S Juror Name Role Phone Woodrow Montalvo MD Primary Care Provider [phone] Reason for Visit * Reason Onset Date Comments Med Refill 07/31/2022 Encounter Details Date Type Department Care Team (Late Contact Info) Description 07/31/[address] [facility] MEDICINE 230 [place], [place] [phone] Woodrow Montalvo MD 505 [place], [place] [phone] Chronic tension-type headache, not intractable (Primary Dx); [...] Department Care Team (Late Contact Info) Description 10/21/2024 1:00 PM EDT Office Visit [facility] ADULT DENTAL 505 [place], [place] [phone] Geeta Jarquin 505 [place] [address] 12/09/2024 2:30 PM EDT Office Visit [facility] MED & PEDS 505 [place] [address] Woodrow Montalvo MD 505 [place] [address] 12/22/2024 2:00 PM EDT Clinical Support [facility] MED & PEDS 505 [place] [address] Stephanie Ling, MARCIO 505 [place], [place] [phone] documented as of this encounter Visit Diagnoses Diagnosis Chronic tension-type headache, not intractable- Primary Chronic tension type headache Gastroesophageal reflux disease without esophagitis Esophageal reflux documented in this encounter Care Teams Coroner'S Juror Relationship Specialty Start Date End Date Woodrow Montalvo MD [address] [place] [address] PCP - General Internal Medicine 01/01/18 documented as of this encounter
--- OUTSIDE RECORDS SUMMARY | 2024-10-19 16:43 | XMS_ITS | Encounter Summary ---
Author Organization [employer] Address [address] [facility] 7t [place] [address] Care Team Providers Care Transcription Coordinator Name Role Phone Woodrow Montalvo MD Primary Care Provider [phone] Reason for Visit * Reason Onset Date Comments Appointment Request 01/19/2024 Encounter Details Date Type Department Care Team ([facility] st Contact Info) Description 01/19/2024 Telephone [facility] CHC MED & PEDS [address] [place], [place] [phone] Woodrow Montalvo MD 505 [place], [place] [phone] Appointment Request Social History Tobacco Use Types [...] Description 10/21/2024 1:00 PM EDT Office Visit [facility] ADULT DENTAL 505 [place] [address] Duran Jarquinaxelet 505 [place] [address] 12/09/2024 2:30 PM EDT Office Visit [facility] MED & PEDS [address] [place] [address] Woodrow Montalvo MD 505 [place] [address] 12/22/2024 2:00 PM EDT Clinical Support [facility] MED & PEDS [address] [place] [address] Stephanie Ling RN 505 [place] [address] documented as of this encounter Visit Diagnoses Not on filedocumented in this encounter Additional Health Concerns Assessment Noted Time PHQ-9 Depression Total Score: 14 023 9:16 AM EDT documented as of this encounter Care Teams Transcription Coordinator Relationship Specialty Start Date End Date Woodrow Montalvo MD [address] [place] [address] PCP - General Internal Medicine 01/01/18 documented as of this encounter"
--- OUTSIDE RECORDS SUMMARY | 2024-10-19 16:43 | XMS_ITS | Encounter Summary ---
Author Organization [employer] Address [address] [facility] [facility] [address] 7t [place] [address] Care Team Providers Care Scrap Materials Buyer Name Role Phone Woodrow Montalvo MD Primary Care Provider [phone] Reason for Visit * Reason Onset Date Comments Nurse Triage 05/19/2023 Encounter Details Date Type Department Care Team ([facility] st Contact Info) Description 05/19/2023 Telephone [facility] MEDICINE 230 [place] [address] Woodrow Montalvo MD 505 [place], [place] [phone] Nurse Triage Social History Tobacco Use Types [...] the past 12 months, has t he [employer], gas, oil or water [employer] threatened to shut off services in your [...] 05/19/2023 3:46 PM EDT Triage call with [employer] Sales Manager [place] [id number] Pt reports abdominal pain started with in [...] fibroid in the past . Apt in [facility] 05/20/23 340pm Insurance is verified as [...] acuity questions The caller accepted this outcome Slovak speaker documented in this encounter Plan of Treatment Upcoming Encounters Date Type Department Care Team (Late st Contact Info) Description 10/21/2024 1:00 PM EDT Office Visit [facility] ADULT DENTAL 505 [place] [address] Raquel Jarquinanpreet 505 [place] [address] 12/09/2024 2:30 PM EDT Office Visit [facility] MED & PEDS 505 [place] [address] Woodrow Montalvo MD 505 [place] [address] 12/22/2024 2:00 PM EDT Clinical Support [facility] MED & PEDS 505 [place] [address] Stephanie Ling, MARCIO 505 [place], [place] [phone] documented as of this encounter Visit Diagnoses Not on filedocumented in this encounter Additional Health Concerns Assessment Noted Time PHQ-9 Depression Total Score: 14 023 9:16 AM EDT documented as of this encounter Care Teams Scrap Materials Buyer Relationship Specialty Start Date End Date Woodrow Montalvo MD 505 [place] [address] PCP - General Internal Medicine 01/01/18 documented as of this encounter
--- OUTSIDE RECORDS SUMMARY | 2024-10-19 16:44 | XMS_ITS | Encounter Summary ---
Author Organization [employer] Address [address] [facility] [facility] [address] [place] [address] Care Team Providers Care Guitar Repairer Name Role Phone Woodrow Montalvo MD Primary Care Provider [phone] Reason for Visit * Reason Comments Med Refill Encounter Details Date Type Department Care Team ([facility] st Contact Info) Description 08/08/2024 Refill [facility] MEDICINE 230 [place] [address] Carly Tejeda, NICOL [address] [place] [address] Social History Tobacco Use Types Packs/Day Years [...] Description 10/21/2024 1:00 PM EDT Office Visit [facility] ADULT DENTAL 505 [place] [address] Milka Raquelmarissaet 505 [place] [address] 12/09/2024 2:30 PM EDT Office Visit [facility] MED & PEDS 505 [place] [address] Woodrow Montalvo MD 505 [place] [address] 12/22/2024 2:00 PM EDT Clinical Support [facility] MED & PEDS 505 [place] [address] Stephanie Ling, MARCIO 505 [place] [address] documented as of this encounter Visit Diagnoses Not on filedocumented in this encounter Additional Health Concerns Assessment Noted Time PHQ-9 Depression Total Score: 14 023 9:16 AM EDT documented as of this encounter Care Teams Guitar Repairer Relationship Specialty Start Date End Date Woodrow Montalvo MD [address] [place], [place] [address] [address] PCP - General Internal Medicine 01/01/18 documented as of this encounter
--- OUTSIDE RECORDS SUMMARY | 2024-10-19 16:44 | XMS_ITS | Clinical Summary ---
Author Organization [employer] Address [address] [facility] [address] [facility] [address] 7t [place] [address] Care Team Providers Care Fryer Line Helper Name Role Phone Woodrow Montalvo MD Primary Care Provider [phone] Allergies No known active allergies Medications Elastic Bandages & Supports (Wrist Splint) [facility] 2 Active Brexpiprazole (Rexulti) 1 MG tablet Take 1 tablet by mouth. Active cetirizine (ZyrTEC) 10 MG tablet Take 1 tablet by mouth in the morning. As needed for allergies. Active ketoconazole (NIZOral) 2 % cream Apply topically every 12 (twelve) hours. Active Minoxidil 5 % solution Apply 1 mL topically. 2 times every day directly onto the scalp in the hair loss area Active naloxone (Narcan) 4 mg/0.1 mL nasal spray Administer 0.1 mL into affected nostril(s). Active omeprazole (PriLOSEC) [address] capsule Take 1 capsule by mouth. Before a meal Active SUMAtriptan (Imitrex) 25 MG tablet Take 1 tablet by mouth. Once with fluids as early as possible after the onset of a migraine attack, may repeat after 2 hours if headache returns, Not to exceed 200mg in 24hours Active zolpidem (Ambien) 10 MG tablet Take 1 tablet by mouth. Once as needed Active Nebulizers (Compressor/Neb ulizer) [facility] Active Blood Pressure kit Active FreeStyle lancetsIndicati ons:Type 2 diabetes mellitus without complication, without long-term current use of insulin ([facility]) APPLY 1 LANCET BY TO SKIN ROUTE EVERY DAY 100 each 11 023 Active Ventolin HFA 108 (90 Base) MCG/ACT inhalerIndicati ons:Mild intermittent asthma without complication INHALE 2 PUFFS EVERY 4 HOURS IF NEEDED FOR WHEEZING. 18 g 1 023 Active FREESTYLE LITE test strip USE 1 BY TO SKIN ROUTE 2 TIMES EVERY DAY 100 strip 6 023 Active sucralfate (Carafate) 1 g tabletIndicatio ns:Gastroesopha geal reflux disease without esophagitis TOME GINNA TABLETA POR VIA ORAL CUATRO VECES AL DOROTHY ON AN EMPTY STOMACH 1 HOUR BEFORE MEALS AND BED 120 tablet 3 024 Active metFORMIN (Glucophage) 500 MG tabletIndicatio ns:Type 2 diabetes mellitus with diabetic dermatitis ([facility]) TOME GINNA TABLETA DOS VECES AL DOROTHY CON LAS COMIDAS EN LA MANANA & EN LA NOCHE 180 tablet 1 024 Active diclofenac (Voltaren) 75 MG EC tabletIndicatio ns:Acute pain of left knee TOME GINNA TABLETA CADA 12 HORAS 60 tablet Active Additional Information Patient not taking.Reported on 08/22/2024 triamcinolone (Kenalog) 0.1 % creamIndication s:Intertrigo Apply topically if needed in the morning and at bedtime (pain and swelling). 30 g 2 024 Active Mometasone Furoate (Asmanex HFA) 100 MCG/ACT aerosolIndicati ons:Mild persistent asthma with acute exacerbation Inhale 100 mcg in the morning and at bedtime. 13 g 11 024 Active senna-docusate (Senexon-S) 8.6-50 MG tablet TAKE 1 TABLET BY MOUTH EVERY MORNING 90 tablet 3 Active furosemide (Lasix) 20 MG tablet Take 1 tablet (20 mg) by mouth Once per day. 90 tablet 1 024 Active perphenazine 2 MG tablet TOME 1 TABLETA POR V A ORAL TODOS LOS D CUANDO SEA NECESARIO Active fluticasone (Flonase) 50 MCG/ACT nasal spray USE ONE SPRAY IN EACH NOSTRIL ONCE DAILY 05/24/2 024 Active albuterol (2.5 MG/3ML) 0.083% nebulizer solution Take 3 mL by nebulization every 6 (six) hours. 75 mL 11 024 Active Alcohol Swabs (Alcohol Prep) 70 % pads APPLY TO THE SKIN ONCE 100 each 3 024 2024 Active ketoconazole (NIZOral) 2 % shampooIndicati ons:Seborrhea capitis LATHER ONTO AFFECTED AREA(S), LEAVE IN PLACE FOR 5 MINUTES, THEN RINSE OFF WITH WATER- USE DAILY 120 mL 5 024 Active buPROPion XL (Wellbutrin XL) 150 MG 24 hr tablet TOME 1 TABLETA POR V A ORAL TODOS LOS D EN LA FREDY DELGADILLO Active estradiol (Divigel) gel Place 1 Application. (0.25 mg) on the skin Once per day. Apply to thigh each morning, alternate thighs 30 each 1 024 Active losartan (Cozaar) 25 MG tabletIndicatio ns:Primary hypertension Take 1 tablet (25 mg) by mouth Once per day. 30 tablet 11 024 2024 Active verapamil SR (Calan SR) 120 MG ER tabletIndicatio ns:Chronic tension-type headache, not intractable TAKE 1 TABLET (120 MG) BY MOUTH IN THE MORNING. EVERY DAY WITH FOOD 90 tablet 3 025 Active atenolol (Tenormin) 25 MG tablet TOME 1 TABLETA POR VIA ORAL TODOS LOS SANTOYO 90 tablet 1 025 Active Dulaglutide (Trulicity) 0.75 MG/0.5ML solution auto-injectorIn dications:Type 2 diabetes mellitus without complication, without long-term current use of insulin ([facility]) Inject 0.75 mg under the skin 1 (one) time per week. 2 mL 1 025 Active traMADol (Ultram) 50 MG tabletIndicatio ns:Chronic pain syndrome TAKE 1 TABLET EVERY 8 HOURS IF NEEDED FOR SEVERE PAIN FOR UP TO 28 DAYS 84 tablet 025 Active traMADol (Ultram) 50 MG tabletIndicatio ns:Chronic pain syndrome TAKE 1 TABLET BY MOUTH EVERY 8 HOURS IF NEEDED FOR SEVERE PAIN FOR UP TO 28 DAYS 84 tablet 025 2024 Discontinued semaglutide (Ozempic) 2 MG/1.5ML solution pen-injectorInd ications:Type 2 diabetes mellitus without complication, without long-term current use of insulin ([facility]) Inject 0.25 mg under the skin 1 (one) time per week. 1 each 12 025 2024 Discontinued(C ost of medication) Active Problems Problem Noted Date Diagnosed Date Long-term current use of opiate analgesic 2024 Decreased libido 03/08/2024 Assessment & Plan (03/08/2024 [...] Encounters Date Type Department Care Team Description 10/06/2024 2:00 PM EDT Office Visit [facility] [address] [place] [address] Geeta Jarquin 09/30/2024 Population Health Risk Score [facility] () Department [address] [phone] Provider, Population Health Generic 09/26/2024 Refill [facility] [address] [place] [address] Woodrow Montalvo MD Chronic pain syndrome 09/22/2024 2:00 PM EST Clinical Support [facility] [address] [place] [address] Stephanie Ling, MARCIO Long-term current use of opiate analgesic 09/22/2024 Travel 09/21/2024 Orders Only [facility] [address] [facility] [place] [address] Woodrow Montalvo MD Type 2 diabetes mellitus without complication, without long-term current use of insulin ([facility]) (Primary Dx) 09/21/2024 Telephone [facility] [address] [facility] [place] [address] Woodrow Goodson MD Medication Question 09/16/2024 Telephone [facility] [address] [place] [address] Woodrow Montalvo MD Prior Authorization 09/16/2024 Refill [facility] [address] [place] [address] Woodrow Montalvo MD 09/13/2024 1:30 PM EST Office Visit [facility] [address] [place] [address] Woodrow Montalvo MD Type 2 diabetes mellitus without complication, without long-term current use of insulin ([facility]) (Primary Dx); Primary hypertension; Dietary counseling; Exercise counseling; Class 2 severe obesity due to excess calories with serious comorbidity and body mass index (BMI) of 39.0 to 39.9 in adult ([facility]); Encounter for immunization 09/13/2024 Travel 09/09/2024 Telephone [facility] [address] [place] [address] Woodrow Montalvo MD chartprep 08/30/2024 Refill [facility] [address] [place] [address] Woodrow Montalvo MD Chronic pain syndrome 08/28/2024 Refill [facility] [address] [place] [address] Carly Tejeda CNM 08/22/2024 1:00 PM EST Office Visit [facility] [address] [place] [address] Gisele Garces 08/13/2024 Refill [facility] [address] [place] [address] Woodrow Montalvo MD Chronic tension-type headache, not intractable 08/08/2024 Refill [facility] [address] [place] [address] Carly Tejeda CNM 08/02/2024 Telephone [facility] [address] [place] [address] Woodrow Montalvo MD Chart Prep 07/31/2024 Refill [facility] [address] [place] [address] Woodrow Montalvo MD Chronic pain syndrome 07/29/2024 2:30 PM EST Office Visit [facility] [address] [place] [address] Anita Pinto DDS from Last 3 Months Immunizations Name Administration [...] Sign Reading Time Taken Comments Blood Pressure 118/80 10/06/2024 2:17 PM EDT Pulse 78 09/13/2024 1:40 PM EST Temperature [...] 10/21/2024 1:00 PM EDT Office Visit [facility] [address] [place] [address] Geeta Jarquin [address] [place] [address] 12/09/2024 2:30 PM EDT Office Visit [facility] [address] [place] [address] Woodrow Montalvo MD [address] [place] [address] 12/22/2024 2:00 PM EDT Clinical Support [facility] [address] [place] [address] Stephanie Ling RN [address] [place] [address] Health Maintenance Due Date Last Done Comments CT Colonography 1973 Colonoscopy 1973 FIT 1973 FOBT 1973 HIV Screening 1973 Sigmoidoscopy 1973 Eye Exam 12/05/1983 Alcohol/Substance Use Screening 1985 Family Planning (PISQ) 1988 Hepatitis C Screening 12/05/1991 Hepatitis B Vaccines (1 of 3 - 19+ 3-dose series) 1992 Zoster Vaccines (1 of 2) 12/05/2023 Influenza Vaccine (#1) 2024 , 04/15/2021, 04/20/2019, Additional history exists Mammogram 01/22/2025 01/23/2024, 08/20, 08/31/2019, Additional history exists Dental Oral Exam 02/20/2025 08/22/2024, , 02/16/2018, Additional history exists Dental Prophylaxis 02/20/2025 08/22/2024 Diabetes: Hemoglobin A1C 03/13/2025 025, 06/24/2024, 12/08/2023, Additional history exists Lipid Panel 06/24/2025 06/24/2024, 10/01/2021 Dental X-Ray: Bitewings 08/23/2025 08/22/19 25, 05/17/2024, 08/02/2019, Additional history exists Depression Screening 09/13/2025 09/13/2024, 09/13/19 Diabetes: Foot Exam 09/13/2025 09/13/2024, 09/03/2023, 09/03/2023, Additional history exists Diabetes: Urine Protein Screening 09/13/2025 09/13/2024, 10/01/2021 SDOH Screening 09/13/2025 09/13/2024 Tobacco Screening 10/06/2025 10/06/2024 Colorectal Cancer Screening 12/15/2026 FIT DNA/Cologuard 12/15/2026 [...] Procedure Name Priority Date/Time Associated Diagnosis Comments 7 MDFL RESIN-BASED COMPOSITE - 4 OR MORE SURFACES (ANTERIOR) Routine 10/06/2024 2:00 PM EDT CASE PRESENTATION, DETAILED AND EXTENSIVE TREATMENT PLANNING Routine 10/06/2024 2:00 PM EDT 6 DIFL RESIN-BASED COMPOSITE - 4 OR MORE SURFACES (ANTERIOR) Routine 10/06/2024 2:00 PM EDT POCT FARNAZ-14 URINE DRUG SCREEN Routine 09/22/2024 2:17 PM EST Long-term current use of opiate analgesic POCT GLYCATED HEMOGLOBIN, TOTAL Routine 09/13/2024 2:35 PM EST Type 2 diabetes mellitus without complication, without long-term current use of insulin (CMS/HCC) POCT GLUCOSE Routine 09/13/2024 2:35 PM EST Type 2 diabetes mellitus without complication, without long-term current use of insulin (CMS/HCC) ALBUMIN, RANDOM URINE W/CREATININE Routine 09/13/2024 2:09 PM EST Type 2 diabetes mellitus without complication, without long-term current use of insulin (CMS/HCC) COMPREHENSIVE PERIODONTAL EVALUATION - NEW OR ESTABLISHED PATIENT Routine 08/22/2024 1:00 PM EST PERIODIC ORAL EVALUATION - ESTABLISHED PATIENT Routine 08/22/2024 1:00 PM EST INTRAORAL - COMPLETE SERIES OF RADIOGRAPHIC IMAGES Routine 08/22/2024 1:00 PM EST ORAL HYGIENE INSTRUCTIONS Routine 08/22/2024 1:00 PM EST CASE PRESENTATION, DETAILED AND EXTENSIVE TREATMENT PLANNING Routine 08/22/2024 1:00 PM EST PROPHYLAXIS - ADULT Routine 08/22/2024 1 :00 PM EST 30 DO RESIN-BASED COMPOSITE - 2 SURF, POSTERIOR Routine 07/29/2024 2:30 PM EST LIPID PANEL, STANDARD Routine 06/24/2024 4:17 PM EST Type 2 diabetes mellitus without complication, without long-term current use of insulin ([facility]) Primary hypertension HM MAMMOGRAPHY Routine 01/23/2024 LAB COLOGUARD?? COLON CANCER SCREEN Routine 12/16/2023 6:11 AM EDT Colon cancer screening from Last 3 Months or Most Recently Relevant to Health Maintenance Results * POCT FARNAZ-14 Urine Drug Screen (09/22/2024 2:17 PM EST) THC Positive Urine Urine specimen obtained by clean catch procedure / Unknown 09/22/2024 2:17 PM EST Narrative Stephanie Ling RN - 09/22/2024 2:17 PM EST Lot# [id number] Exp: 03-08-26 us Woodrow Montalvo MD POINT OF CARE TEST ENTER/ED IT ORDERABLES Final Result * POCT HGB A1C (09/13/2024 2:35 PM EST) Hemoglobin A1C 5.7 4.0 - 6.0 % QC Media Lot # [id number] Lot# Expiration Date Blood 09/13/2024 2:35 PM EST us Woodrow Montalvo MD POINT OF CARE TEST ENTER/ED IT ORDERABLES Final Result * POCT Glucose (09/13/2024 2:35 PM EST) Glucose Blood, POC 161 60 - 200 mg/dL [employer] Media Lot # [id number] Lot# Expiration Date ,025 Blood Capillary blood specimen / Unknown 09/13/2024 2:35 PM EST us Woodrow Montalvo MD POINT OF CARE TEST ENTER/ED IT ORDERABLES Final Result * Albumin, Random Urine W/Creatinine (09/13/2024 2:09 PM EST) Creatinine, Urine 126.20 mg/dL [facility] Microalbumin Urine 8.0 mg/L [facility] Microalbum Creatinine Ratio Ur 6.3 <30 ug/mg cr [facility] Comment:Albumin/Creatinine R atio Reference Ranges: Normal: < 30 ug/mg creatinine Microalbuminuria: 30 - 300 ug/mg creatinineClinical Albuminuria: > 300 ug/mg creatinine Urine (Urine, Random) 09/13/2024 2:09 PM EST 09/13/2024 6:03 PM EST Woodrow Montalvo MD LAB URINE ORDERABLES Final Result [facility] [address] [place] [phone] * (ABNORMAL) Lipid Panel, Standard (06/24/2024 4:17 PM EST) Triglycerides 128 <150 mg/dL [facility] Comment:Desirable Triglyceri de: less than 150 mg/dLBorderline High Triglyceride 150-199 mg/dLHigh Triglyceride: 200-499 mg/dLVery High Triglyceride: greater than or equal to 5OO mg/dL Cholesterol 162 <200 mg/dL [facility] Comment:Desirable Cholestero l: less than 200 mg/dLBorderline High Cholesterol: 200-239 mg/dLHigh Cholesterol: greater than 239 mg/dL LDL Cholesterol Calculated 105(H) <100 mg/dL [facility] Comment:Desirable LDL: less than 100 mg/dLNear Optimal/Above Optimal LDL: 110- 129 mg/dLBorderline High LDL: 130-159 mg/dLHigh LDL: 160-189 mg/dLVery High LDL: greater than or equal to 190 mg/dL HDL Cholesterol 32(L) >40 mg/dL [facility] Comment:Desirable HDL: great er than 40 mg/dL Note: This HDL assay may give artificially low results in patients with liver disease. Blood Venous blood specimen / Unknown 06/24/2024 4:17 PM EST 06/24/2024 5:39 PM EST us Woodrow Montalvo MD LAB BLOOD ORDERABLES Final Result [facility] [address] [place] [phone] * Mammography (01/23/2024) Mammogram BIRADS 1 Normal, Abnormal, BIRADS 1 , BIRADS 2 Anatomical Region Laterality Modality Other us Woodrow Montalvo MD HEALTH MAINTENANCE Final Re sult * Cologuard?? colon cancer screening (12/16/2023 6:11 AM EDT) Cologuard Result Negative Negative 12/20/19 24 8:03 AM ED[facility] (CLIA #:[id number]) Comment: NEGATIVE TEST RESULT. A negative Cologuard [...] screened with both Cologuard and colonoscopy. (Chantelle Walters. et al, N Engl J Med 2014;370(14):1286- 1297) The normal value (reference range) for this assay is negative. COLOGUARD RE-SCREENING RECOMMENDATION: Periodic colorectal cancer screening is an important part of preventive healthcare for asymptomatic individuals at average risk for colorectal cancer. ??Following a negative Cologuard result, the [place] and U.S. Multi-Society Task Force screening guidelines recommend a Cologuard re-screening interval of 3 years. References: [place] Guideline for Colorectal Cancer Screening: https://www.cancer.org/cancer/mmbff-qyrdnq-mooast/iywpyftzf-bgroppuao-alangww/ac s-rec ommendations.html.; Ger SHULTZ, Sly OLVERA, Benji LandisK, Colorectal Cancer Screening: Recommendations for Physicians and Patients from the U.S. Multi-Society Task Force on Colorectal Cancer Screening , Am J Gastroenterology 2017; 112:7986-8157. TEST DESCRIPTION: Composite algorithmic analysis of stool [...] Flores et al, N Engl J Med 2014;370(14):2280-8865.) Cologuard may produce a false negative or false positive result (no colorectal cancer or precancerous polyp present at colonoscopy follow up). A negative Cologuard test result does not guarantee the absence of CRC or advanced adenoma (pre-cancer). The current Cologuard screening interval is every 3 years. ([place] [employer] and U.S. Multi-Society Task Force). Cologuard performance data in a 10,000 patient pivotal study using colonoscopy as the reference method can be accessed at the following location: www.[employer]/results. Additional description of the Cologuard test process, warnings and precautions can be found at www.[employer].com. Stool specimen (specimen) 12/16/2023 6:11 AM EDT 12/17/2023 10:48 AM EDT Woodrow Montalvo MD LAB MOLECULAR DIAGNOSTICS O RDERABLES Final Result [facility] (CLIA #:[id number]) [address] [place] [address], from Last 3 Months or Most Recently Relevant to Health Maintenance Insurance C[employer] [facility] MED[employer] STAND ADULT Care Teams Fryer Line Helper Relationship Specialty Start Date End Date Woodrow Montalvo MD [address] [place] [phone] PCP - General Internal Medicine 01/01/18
--- OUTSIDE RECORDS SUMMARY | 2024-10-19 16:44 | XMS_ITS | Encounter Summary ---
Author Organization [employer] Address [address] [facility] 7t [place] [address] Care Team Providers Care Knitter Helper Name Role Phone Woodrow Montalvo MD Primary Care Provider [phone] Reason for Visit * Reason Comments Med Refill Encounter Details Date Type Department Care Team ([facility] Contact Info) Description 06/18/2024 Refill [facility] [address] [place], [place] [phone] Woodrow Montalvo MD [address] [place], [place] [phone] Chronic pain syndrome Social History Tobacco Use [...] 1:00 PM EDT Office Visit [facility] [address] [place] [address] Geeta Jarquin [address] [place] [address] 12/09/2024 2:30 PM EDT Office Visit [facility] [address] [place] [address] Woodrow Montalvo MD [address] [place] [address] 12/22/2024 2:00 PM EDT Clinical Support [facility] [address] [place] [address] Stephanie Ling, MARCIO [address] [place] [address] documented as of this encounter Visit Diagnoses Diagnosis Chronic pain syndrome documented in this encounter Additional Health Concerns Assessment Noted Time PHQ-9 Depression Total Score: 14 023 9:16 AM EDT documented as of this encounter Care Teams Knitter Helper Relationship Specialty Start Date End Date Woodrow Montalvo MD [address] [place] [address] PCP - General Internal Medicine 01/01/18 documented as of this encounter
--- OUTSIDE RECORDS SUMMARY | 2024-10-19 16:44 | XMS_ITS | Encounter Summary ---
Author Organization [employer] Address [address] [facility] [address] [place] [address] Care Team Providers Care Medical Technical Writer Name Role Phone Woodrow Montalvo MD Primary Care Provider [phone] Reason for Visit * Reason Onset Date Comments Appointment Request 02/16/2024 Encounter Details Date Type Department Care Team ([facility] st Contact Info) Description 02/16/2024 Telephone [facility] [address] [place] [address] Woodrow Montalvo MD [address] [place], [place] [phone] Appointment Request Social History Tobacco Use Types [...] Description 10/21/2024 1:00 PM EDT Office Visit [facility] [address] [place] [address] Geeta Jarquin [address] [place] [address] 12/09/2024 2:30 PM EDT Office Visit [facility] [address] [place] [address] Woodrow Montalvo MD [address] [place] [address] 12/22/2024 2:00 PM EDT Clinical Support [facility] [address] [place] [address] Stephanie Ling RN [address] [place] [address] documented as of this encounter Visit Diagnoses Not on filedocumented in this encounter Additional Health Concerns Assessment Noted Time PHQ-9 Depression Total Score: 14 023 9:16 AM EDT documented as of this encounter Care Teams Medical Technical Writer Relationship Specialty Start Date End Date Woodrow Montalvo MD [address] [place] [phone] PCP - General Internal Medicine 01/01/18 documented as of this encounter
--- OUTSIDE RECORDS SUMMARY | 2024-10-19 16:44 | XMS_ITS | Encounter Summary ---
Author Organization [employer] Address [address] [facility] 7t [place] [address] Care Team Providers Care Satellite Dish Repairer Name Role Phone Woodrow Montalvo MD Primary Care Provider [phone] Encounter Details Date Type Department Care Team (Late st Contact Info) Description 06/16/2022 Abstract [facility] MED & PEDS [address] [place], [place] [phone] Provider, MD Melissa Social History Tobacco Use [...] Description 10/21/2024 1:00 PM EDT Office Visit [facility] ADULT DENTAL [address] [place], [place] [phone] Geeta Jarquin [address] [place], [place] [phone] 12/09/2024 2:30 PM EDT Office Visit [facility] P[facility] [address] [place] [address] Woodrow Montalvo MD [address] [place] [address] 12/22/2024 2:00 PM EDT Clinical Support [facility] [address] [place] [address] Stephanie Ling, MARCIO [address] [place] [address] documented as of this encounter Visit Diagnoses Not on filedocumented in this encounter Care Teams Satellite Dish Repairer Relationship Specialty Start Date End Date Woodrow Montalvo MD [address] [place] [address] PCP - General Internal Medicine 01/01/18 documented as of this encounter
--- OUTSIDE RECORDS SUMMARY | 2024-10-19 16:44 | XMS_ITS | Encounter Summary ---
Author Organization [employer] Address [address] [facility] [address] [place] [address] Care Team Providers Care Apprenticeship Consultant Name Role Phone Woodrow Montalvo MD Primary Care Provider [phone] Reason for Visit * Reason Comments Med Refill Encounter Details Date Type Department Care Team ([facility] st Contact Info) Description 08/28/2024 Refill [facility] [address] [place] [address] Carly Tejeda, NICOL [address] [place] [address] Social History Tobacco Use Types Packs/Day Years [facility] [address] [place] [address] Jarquin Raquelanaxelet [address] [place] [address] 12/09/2024 2:30 PM EDT Office Visit [facility] [address] [place] [address] Woodrow Montalvo MD [address] [place] [address] 12/22/2024 2:00 PM EDT Clinical Support [facility] [address] [place] [address] Stephanie Ling, MARCIO [address] [place] [address] documented as of this encounter Visit Diagnoses Not on filedocumented in this encounter Additional Health Concerns Assessment Noted Time PHQ-9 Depression Total Score: 14 023 9:16 AM EDT documented as of this encounter Care Teams Apprenticeship Consultant Relationship Specialty Start Date End Date Woodrow Montalvo MD [address] [place] [phone] PCP - General Internal Medicine 01/01/18 documented as of this encounter
--- OUTSIDE RECORDS SUMMARY | 2024-10-19 16:44 | XMS_ITS | Encounter Summary ---
Author Organization [employer] Address [address] [place] [address] Care Team Providers Care Gaming Cage Worker Name Role Phone Woodrow Montalvo MD Primary Care Provider [phone] Encounter Details Date Type Department Care Team (Late st Contact Info) Description 09/21/2024 Orders Only [facility] [address] [place] [address] Woodrow Montalvo MD [address] [place] [address] Type 2 diabetes mellitus without complication, without long-term current use of insulin (CMS/[facility]) (Primary Dx) Social History Tobacco Use Types Packs/Day Years [...] 1:00 PM EDT Office Visit [facility] ADULT DENTAL [address] [place] [address] Geeta Jarquin [address] [place] [address] 12/09/2024 2:30 PM EDT Office Visit [facility] MED & PEDS [address] [place] [address] Woodrow Montalvo MD [address] [place] [address] 12/22/2024 2:00 PM EDT Clinical Support [facility] PED[facility] [address] [place] [address] Stephanie Ling RN [address] [place] [address] documented as of this encounter Visit Diagnoses Diagnosis Type 2 diabetes mellitus without complication, without long-term current use of insulin ([facility])- Primary documented in this encounter Additional Health Concerns Assessment Noted Time PHQ-9 Depression Total Score: 0 09/13/19 25 1:41 PM EST documented as of this encounter Care Teams Gaming Cage Worker Relationship Specialty Start Date End Date Woodrow Montalvo MD [address] [place] [id number] PCP - General Internal Medicine 01/01/18 documented as of this encounter
--- OUTSIDE RECORDS SUMMARY | 2024-10-19 16:44 | XMS_ITS | Encounter Summary ---
Author Organization [employer] Address [address] [place] [address] Care Team Providers Care Campground Manager Name Role Phone Woodrow Montalvo MD Primary Care Provider [phone] Reason for Visit * Reason Onset Date Comments pain on tooth 06/20/2024 Encounter Details Date Type Department Care Team ([facility] st Contact Info) Description 06/20/2024 Telephone [facility] ADULT DENTAL [address] [place], [place] [phone] Geronimo Flannery, DMD [address] [place], [place] [phone] pain on tooth Social History Tobacco Use [facility] [address] [place] [address] Jarquin Raquelrigo [address] [place] [address] 12/09/2024 2:30 PM EDT Office Visit [facility] MED & PEDS [address] [place] [address] Woodrow Montalvo MD [address] [place] [address] 12/22/2024 2:00 PM EDT Clinical Support [facility] MED [facility] PEDS [address] [place] [address] Stephanie Ling RN [address] [place], [place] documented as of this encounter Visit Diagnoses Not on filedocumented in this encounter Additional Health Concerns Assessment Noted Time PHQ-9 Depression Total Score: 14 023 9:16 AM EDT documented as of this encounter Care Teams Campground Manager Relationship Specialty Start Date End Date Woodrow Montalvo MD [address] [place] [address] PCP - General Internal Medicine 01/01/18 documented as of this encounter
[2024-10-19 17:11] LABS: Alanine Aminotransferase 24 U/L (0-31); Albumin Level 4.1 g/dL (3.5-5.0); Alkaline Phosphatase 87 U/L (39-117); Anion Gap 11 (12-20); Aspartate Amino Transferase 23 U/L (5-31); Bilirubin Direct 0.2 mg/dL (0.0-0.5); Bilirubin Total 0.4 mg/dL (0.0-1.0); Blood Urea Nitrogen 7 mg/dL (9-16); Calcium 8.7 mg/dL (8.4-10.2); Carbon Dioxide 22 mmol/L (22-29); Chloride 110 mmol/L (96-108); Cholesterol 135 mg/dL (<200); Estimated Glomerular Filt Rate > 60; Glucose Random 99 mg/dL (60-115); HDL Cholesterol 29 mg/dL (>40); LDL Cholesterol Calculated 85 mg/dL (<100); Potassium 3.6 mmol/L (3.3-5.1); Sodium 139 mmol/L (135-145); Total Protein 7.9 g/dL (6.5-8.0); Triglycerides 105 mg/dL (<150)
== END 2024-10-19 13:57 | disposition home or self-care (01) ==
LOC: HO.HHCL 13:56
PROVIDERS: Visit Provider Dietitian, Registered
DX: F32.9 Major depressive disorder, single episode, unspecified (principal); F43.10 Post-traumatic stress disorder, unspecified
CPT/HCPCS: 36415; 80053; 80061; 82248; 83036; 85025